=== PATIENT | female | born 1955 | race African-American/Black ===

== ENCOUNTER 2019-09-22 15:17 | Inpatient (IN) | payer OTHER ==
[~2019-09-22] VITALS: Ht 162.6 cm; Wt 56.2 kg
[2019-09-22 15:50] VITALS: BP 145/95
[2019-09-22] MEDS ORDERED: Ipratropium 0.02% Inh Soln 2.5ml UD HHN ONE (16:00)
[2019-09-22] MEDS ORDERED: HYDROcodone/Acetamin 5/325 tab ORAL ONE (16:00)
--- NOTE | 2019-09-22 16:07 | Emergency Room Report ---
History of Present Illness General Chief Complaint: Asthma Source: Patient Present Illness HPI Patient presents with complaints of asthma exacerbation reports that she is short of breath has been using her inhaler however not improving also having increased cough some runny nose Denies any chest pain however patient does complain of left arm pain as well involving the upper shoulder upper arm and left forearm Ongoing for the past several days reports that she saw her primary physician yesterday was given a shot for this in the left arm however the discomfort has continued Denies any neck pain denies any vomiting or diarrhea Denies any pleurisy denies any recent fevers Allergies: Coded Allergies: No Known Allergies (Unverified , 09/22/19) Patient History Past Medical History: see triage record Last Menstrual Period: N/A Reviewed Nursing Documentation: PMH: Agreed; PSxH: Agreed Nursing Documentation-PMH Hx Hypertension: Yes Hx Asthma: Yes Review of Systems All Other Systems: negative except mentioned in HPI Physical Exam Vital Signs Date Time Temp Pulse Resp B/P (MAP) Pulse Ox O2 Delivery O2 Flow Rate FiO2 09/22/19 15:41 98.2 101 22 145/95 (112) 90 Room Air Sp02 EP Interpretation: reviewed, normal General Appearance: well appearing, no apparent distress Head: normocephalic, atraumatic Eyes: bilateral eye PERRL, bilateral eye EOMI ENT: hearing grossly normal, normal pharynx, TMs + canals normal, uvula midline Neck: full range of motion, supple, no meningismus, no bony tend Respiratory: no respiratory distress, no retraction, no accessory muscle use, wheezing - Bilaterally Cardiovascular #1: normal peripheral pulses, regular rate, rhythm, no edema, no gallop, no JVD, no murmur Gastrointestinal: normal bowel sounds, non tender, soft, no mass, no organomegaly, non-distended, no guarding, no hernia, no pulsatile mass, no rebound Genitourinary: no CVA tenderness Musculoskeletal: other - Subjectively complains of left arm pain however moves in all flexion extension able to supinate and pronate without focal deficit 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 Neurologic: motor strength/tone normal, bag mender III-XII nml as tested, oriented x3 , sensory intact, responsive Psychiatric: mood/affect normal Skin: no rash Lymphatic: normal inspection, no adenopathy Procedures Critical Care Time Critical Care Time 50 minutes for multiple re-evaluations, critical findings concerning for respiratory failure and possible not including any procedural time Medical Decision Making Diagnostic Impression: Primary Impression: Pulmonary embolism ER Course Patient is a fairly complex patient with multiple differential to consideration including but not limited to cardiac cardiopulmonary and vascular emergencies Patient did some what better with breathing treatment Troponin level was elevated given the patient's shortness of breath and left arm discomfort this raises further vascular Concerns as well and therefore CT angios was obtained patient does have bilateral small pulmonary emboli Does not appear to put any strain on the cardiac area patient is initiated on heparin bolus and drip And will require ICU admission Labs Test 09/22/19 16:11 09/22/19 17:09 White Blood Count 7.0 K/UL (4.8-10.8) Red Blood Count 3.91 M/UL (4.20-5.40) Hemoglobin 12.7 G/DL (12.0-16.0) Hematocrit 40.8 % (37.0-47.0) Mean Corpuscular Volume 105 FL (80-99) Mean Corpuscular Hemoglobin 32.5 PG (27.0-31.0) Mean Corpuscular Hemoglobin Concent 31.1 G/DL (32.0-36.0) Red Cell Distribution Width 12.5 % (11.6-14.8) Platelet Count 195 K/UL (150-450) Mean Platelet Volume 9.6 FL (6.5-10.1) Neutrophils (%) (Auto) 53.1 % (45.0-75.0) Lymphocytes (%) (Auto) 33.5 % (20.0-45.0) Monocytes (%) (Auto) 6.1 % (1.0-10.0) Eosinophils (%) (Auto) 4.9 % (0.0-3.0) Basophils (%) (Auto) 2.4 % (0.0-2.0) Sodium Level 139 MMOL/L (136-145) Potassium Level 4.0 MMOL/L (3.5-5.1) Chloride Level 105 MMOL/L (98-107) Carbon Dioxide Level 24 MMOL/L (21-32) Anion Gap 10 mmol/L (5-15) Blood Urea Nitrogen 18 mg/dL (7-18) Creatinine 1.2 MG/DL (0.55-1.30) Estimat Glomerular Filtration Rate 45.3 mL/min (>60) Glucose Level 84 MG/DL (74-106) Calcium Level 8.8 MG/DL (8.5-10.1) Total Bilirubin 0.4 MG/DL (0.2-1.0) Aspartate Amino Transf (AST/SGOT) 26 U/L (15-37) Alanine Aminotransferase (ALT/SGPT) 22 U/L (12-78) Alkaline Phosphatase 59 U/L (46-116) Total Creatine Kinase 314 U/L (26-308) Troponin I 0.271 ng/mL (0.000-0.056) Pro-B-Type Natriuretic Peptide 273 pg/mL (0-125) Total Protein 7.8 G/DL (6.4-8.2) Albumin 3.9 G/DL (3.4-5.0) Globulin 3.9 g/dL Albumin/Globulin Ratio 1.0 (1.0-2.7) Lipase 172 U/L (73-393) Urine Opiates Screen Positive (NEGATIVE) Urine Barbiturates Screen Negative (NEGATIVE) Phencyclidine (PCP) Screen Negative (NEGATIVE) Urine Amphetamines Screen Negative (NEGATIVE) Urine Benzodiazepines Screen Negative (NEGATIVE) Urine Cocaine Screen Positive (NEGATIVE) Urine Marijuana (THC) Screen Negative (NEGATIVE) EKG Diagnostic Results Rate: normal Rhythm: NSR ST Segments: other - Nonspecific ST and T wave changes Rhythm Strip Diag. Results EP Interpretation: yes Rate: 88 Rhythm: NSR, no PVC's, no ectopy Chest X-Ray Diagnostic Results Chest X-Ray Diagnostic Results : Chest X-Ray Ordered: Yes # of Views/Limited/Complete: 1 View Indication: Chest Pain EP Interpretation: Yes Interpretation: no consolidation, no effusion, other - Left lower lobe opacities Impression: Other - Left lower lobe nodular opacities Electronically Signed by: Cash Gee DO CT/MRI/US Diagnostic Results CT/MRI/US Diagnostic Results : Impression CTA chestIMPRESSION: Study is positive for small bilateral pulmonary emboli. Last Vital Signs Date Time Temp Pulse Resp B/P (MAP) Pulse Ox O2 Delivery O2 Flow Rate FiO2 09/22/19 15:41 98.2 101 22 145/95 (112) 90 Room Air Status: improved Disposition: ADMITTED INPATIENT Condition: Critical Cash Gee DO Sep 22, 2019 16:07
[2019-09-22] MEDS: Albuterol ud Inhalation HHN SCH ×3 (16:23→16:27)
[2019-09-22 16:42] LABS: BASOPHILS % (AUTO) 2.4 % (0.0-2.0); EOSINOPHILS % (AUTO) 4.9 % (0.0-3.0); HEMATOCRIT 40.8 % (37.0-47.0); HEMOGLOBIN 12.7 G/DL (12.0-16.0); LYMPHOCYTES % (AUTO) 33.5 % (20.0-45.0); MEAN CORPUSCULAR VOLUME 105 FL (80-99); MONOCYTES % (AUTO) 6.1 % (1.0-10.0); NEUTROPHILS % (AUTO) 53.1 % (45.0-75.0); PLATELET COUNT 195 K/UL (150-450); RED BLOOD COUNT 3.91 M/UL (4.20-5.40); RED CELL DISTRIBUTION WIDTH 12.5 % (11.6-14.8)
[2019-09-22 17:01] LABS: ANION GAP 10 mmol/L (5-15); BLOOD UREA NITROGEN 18 mg/dL (7-18); CALCIUM 8.8 MG/DL (8.5-10.1); CARBON DIOXIDE 24 MMOL/L (21-32); CHLORIDE 105 MMOL/L (98-107); CREATININE 1.2 MG/DL (0.55-1.30); SODIUM 139 MMOL/L (136-145)
[2019-09-22 17:18] LABS: ALANINE AMINOTRANSFERASE 22 U/L (12-78); ALBUMIN 3.9 G/DL (3.4-5.0); ALKALINE PHOSPHATASE 59 U/L (46-116); ASPARTATE AMINO TRANSFERASE 26 U/L (15-37); BILIRUBIN,TOTAL 0.4 MG/DL (0.2-1.0); CREATINE KINASE 314 U/L (26-308)
--- NOTE | 2019-09-22 17:20 | Diagnostic Imaging Report ---
EXAM: XR Chest, 1 View CLINICAL HISTORY: SOB TECHNIQUE: Frontal view of the chest. COMPARISON: No relevant prior studies available. FINDINGS: Lungs: Mild reticulonodular opacities in the lower lung kraus. No confluent consolidation. Pleural space: Unremarkable. No pneumothorax. Heart: Unremarkable. No cardiomegaly. Mediastinum: Unremarkable. Bones/joints: No acute fracture. Vasculature: Ectatic and tortuous aorta. IMPRESSION: Mild reticulonodular opacities in the lower lung kraus. No confluent consolidation.
[2019-09-22] MEDS ORDERED: Omnipaque 350 100ml vial INJ PRN (17:30)
[2019-09-22] MEDS ORDERED: Morphine Sulfate 4mg/ml Inj (IV USE ONLY) IVP ONE (17:45)
[2019-09-22 18:11] VITALS: BP 144/88
--- NOTE | 2019-09-22 18:12 | NUR ---
ED Nurse Note: Patient found to have low pulse oximetry reading, 82% on room air and provided oxygen via N/C 4L. Improved pulse oximetry reading to 94%. Reports no CP or SOB at this time. EM Garrison made aware.
--- NOTE | 2019-09-22 18:56 | NUR ---
ED Nurse Note: Patient is on oxygen via N/C 2L, maintaining pulse oximetry reading >94%.
[2019-09-22 19:15] VITALS: BP 138/100
--- NOTE | 2019-09-22 19:15 | NUR ---
ED Nurse Note: Report received from EM Garrison. Pt is resting in bed at this time, no acute distress noted. 22g IV on L AC is patent and intact. Will continue to monitor. VSS.
--- NOTE | 2019-09-22 19:16 | Diagnostic Imaging Report ---
EXAM: CT Chest With Intravenous Contrast CLINICAL HISTORY: SOB TECHNIQUE: Axial computed tomography images of the chest with intravenous contrast. CTDI is 39.2 mGy and DLP is 367.4 mGy-cm. One or more of the following dose reduction techniques were used: automated exposure control, adjustment of the mA and/or kV according to patient size, use of iterative reconstruction technique. MIP reconstructed images were created and reviewed. COMPARISON: No relevant prior studies available. FINDINGS: Lungs: Pulmonary emphysema Mild consolidative atelectasis in the right lung base. Pleural space: Unremarkable. No pneumothorax. No effusion. Heart: Trace anterior pericardial fluid Bones/joints: Scoliosis. Soft tissues: Unremarkable. Vasculature: Study is positive for small bilateral pulmonary emboli. No thoracic aortic aneurysm. Lymph nodes: No enlarged lymph nodes. Kidneys and ureters: Left renal cyst. IMPRESSION: Study is positive for small bilateral pulmonary emboli. <MYCVCSECTION> Communications: 09/22/19 19:20 Call Doctor Regarding Other, called Dr. Gee on 09/22 19:20 (-08:00)
--- NOTE | 2019-09-22 19:26 | NUR ---
Nursing securities supervisor notified to change tele to ICU
[2019-09-22] MEDS ORDERED: Heparin 5000 units/ml inj IV ONE ×2 (19:30→23:00)
[2019-09-22] MEDS ORDERED: Heparin 25,000u/D5W 500ml 500 ML IV SCH ×3 (19:30→23:15)
--- NOTE | 2019-09-22 20:16 | NUR ---
ED Nurse Note: IV heparin drip started at this time as ordered. Pt tolerating well, no acute distress noted.
--- NOTE | 2019-09-22 20:30 | NUR ---
ED Nurse Note: Pt is resting in bed at this time, no acute distress noted. VSS. Will continue to monitor, awaiting on bed.
--- NOTE | 2019-09-22 21:00 | NUR ---
ED Nurse Note: Report given to EM Elizabeth.
--- NOTE | 2019-09-22 21:12 | NUR ---
ED Nurse Note: Pt own medication, naproxen 500mg and (two) albuteral inhalers taken from pt and locked in pt own med box in medication room in ED.
--- NOTE | 2019-09-22 21:20 | NUR ---
ED Nurse Note: Pt sent to unit with heparin infusing running as ordered. IV Heparin infusion orders endorsed to receiving nurse on the unit.
--- NOTE | 2019-09-22 21:20 | NUR ---
ED Nurse Note: Pt is stable to transfer to unit at this time per ERMD. Pt VSS, no acute distress noted. Pt has heparin infusion running as ordered. Pt IV sites patent and intact. Pt taken to unit via gurney by susanna and RN, connected to diagnostic cardiac sonographer. Pt belongings sent with pt. Pt is aaox4.
--- NOTE | 2019-09-22 21:30 | NUR ---
NURSE NOTES: Admitted 64 year old female patient. Received endorsement from EM Gillespie. Awake and alert and oriented. Sinus rhythm on the monitor. On 3liters oxygen per nasal cannula. Patient stated her breathing feels better. With right AC g 20 and left AC g22. Receiving Heparin 12 units/kg/hr. Skin is intact. Head of bed elevated, locked and in low position. Call light within reach. Bed alarm on. Patient oriented to her room, staff, call light.
[2019-09-22 21:32] VITALS: BP 146/97
--- NOTE | 2019-09-22 21:40 | Cardiology Progress Note ---
Assessment/Plan Assessment/Plan The patient is seen and examined, full consult note will be dictated. Objective Last 24 Hour Vital Signs Date Time Temp Pulse Resp B/P (MAP) Pulse Ox O2 Delivery O2 Flow Rate FiO2 09/22/19 19:15 96.7 104 17 138/100 98 Nasal Cannula 2.0 21 09/22/19 18:55 96 18 95 Nasal Cannula 2.0 09/22/19 18:11 96.7 09/22/19 18:11 96.7 103 18 144/88 94 Nasal Cannula 4.0 09/22/19 16:25 99 18 Room Air 21 09/22/19 16:23 100 20 100 Room Air 21 99 18 99 09/22/19 15:50 98.2 78 22 145/95 90 Room Air 09/22/19 15:41 98.2 101 22 145/95 (112) 90 Room Air Laboratory Tests Test 09/22/19 16:11 09/22/19 17:09 White Blood Count 7.0 K/UL (4.8-10.8) Red Blood Count 3.91 M/UL (4.20-5.40) L Hemoglobin 12.7 G/DL (12.0-16.0) Hematocrit 40.8 % (37.0-47.0) Mean Corpuscular Volume 105 FL (80-99) H Mean Corpuscular Hemoglobin 32.5 PG (27.0-31.0) H Mean Corpuscular Hemoglobin Concent 31.1 G/DL (32.0-36.0) L Red Cell Distribution Width 12.5 % (11.6-14.8) Platelet Count 195 K/UL (150-450) Mean Platelet Volume 9.6 FL (6.5-10.1) Neutrophils (%) (Auto) 53.1 % (45.0-75.0) Lymphocytes (%) (Auto) 33.5 % (20.0-45.0) Monocytes (%) (Auto) 6.1 % (1.0-10.0) Eosinophils (%) (Auto) 4.9 % (0.0-3.0) H Basophils (%) (Auto) 2.4 % (0.0-2.0) H Sodium Level 139 MMOL/L (136-145) Potassium Level 4.0 MMOL/L (3.5-5.1) Chloride Level 105 MMOL/L (98-107) Carbon Dioxide Level 24 MMOL/L (21-32) Anion Gap 10 mmol/L (5-15) Blood Urea Nitrogen 18 mg/dL (7-18) Creatinine 1.2 MG/DL (0.55-1.30) Estimat Glomerular Filtration Rate 45.3 mL/min (>60) Glucose Level 84 MG/DL (74-106) Calcium Level 8.8 MG/DL (8.5-10.1) Total Bilirubin 0.4 MG/DL (0.2-1.0) Aspartate Amino Transf (AST/SGOT) 26 U/L (15-37) Alanine Aminotransferase (ALT/SGPT) 22 U/L (12-78) Alkaline Phosphatase 59 U/L (46-116) Total Creatine Kinase 314 U/L (26-308) H Troponin I 0.271 ng/mL (0.000-0.056) Pro-B-Type Natriuretic Peptide 273 pg/mL (0-125) H Total Protein 7.8 G/DL (6.4-8.2) Albumin 3.9 G/DL (3.4-5.0) Globulin 3.9 g/dL Albumin/Globulin Ratio 1.0 (1.0-2.7) Lipase 172 U/L (73-393) Urine Opiates Screen Positive (NEGATIVE) H Urine Barbiturates Screen Negative (NEGATIVE) Phencyclidine (PCP) Screen Negative (NEGATIVE) Urine Amphetamines Screen Negative (NEGATIVE) Urine Benzodiazepines Screen Negative (NEGATIVE) Urine Cocaine Screen Positive (NEGATIVE) H Urine Marijuana (THC) Screen Negative (NEGATIVE) Dayron Tate MD Sep 22, 2019 21:40
[2019-09-22 22:00] VITALS: BP 150/84
--- NOTE | 2019-09-22 22:00 | NUR ---
NURSE NOTES: Patient seen and examined by Dr. Tate. Called Dr. Bach for admission orders.
[2019-09-22] MEDS: dilTIAZem HCl 30mg tab ORAL SCH (22:18)
--- NOTE | 2019-09-22 22:20 | NUR ---
NURSE NOTES: Received patient on Heparin 12u/kg/hr per [facility] protocol. Charge nurse spoke with Pharmacist Jaskaran, as per her to confirm with MD if patient to continue heparin drip per [facility] protocol or PE protocol. Called Dr. Tate on his emergency line, left a message.
--- NOTE | 2019-09-22 22:30 | NUR ---
NURSE NOTES: Called Dr. Bach for the 2nd time for admission orders.
--- NOTE | 2019-09-22 22:50 | NUR ---
NURSE NOTES: Received a return call from Dr. Tate. Informed him that received patient on heparin drip per [facility] protocol. As per him to change it to Heparin drip per PE protocol
--- NOTE | 2019-09-22 22:55 | NUR ---
NURSE NOTES: Received return call from Dr. Bach, orders read back and verified by
[2019-09-22 23:00] VITALS: BP 128/77
--- NOTE | 2019-09-22 23:00 | NUR ---
NURSE NOTES: Called Dr. Corona. Received new orders and read back. agreed with the Heparin drip PE protocol.
[2019-09-22] MEDS ORDERED: Albuterol/Ipratropium 3ml neb HHN PRN (23:15)
--- NOTE | 2019-09-22 23:55 | Pulmonolgy Critical Care Note ---
Critical Care - Asmt/Plan Assessment/Plan: Pulmonary CCM Consultation HPI Patient is a 64 year old woman with previous history of Asthma, admitted c/o short of breath,increased cough some runny nose Has chest and left arm pain as well involving the upper shoulder upper arm and left forearm, no hemoptysis Denies any neck pain denies any vomiting or diarrhea Denies any pleurisy denies any recent fevers Allergies: No Known Allergies Past Medical History: Asthma, Hypertension All Other Systems: negative except mentioned in HPI Physical Exam Vital Signs Noted Date Time Temp Pulse Resp B/P (MAP) Pulse Ox O2 Delivery O2 Flow Rate FiO2 09/22/19 15:41 98.2 101 22 145/95 (112) 90 Room Air General Appearance: well appearing, no apparent distress Head: normocephalic, atraumatic Eyes: bilateral eye PERRL, bilateral eye EOMI ENT: hearing grossly normal, normal pharynx, TMs + canals normal, uvula midline Neck: full range of motion, supple, no meningismus, no bony tend Respiratory: no respiratory distress, no retraction, no accessory muscle use, wheezing - Bilaterally Cardiovascular: normal peripheral pulses, regular rate, rhythm, HS1, HS2 normal ,no edema, no gallop, no JVD, no murmur Gastrointestinal: normal bowel sounds, non tender, soft, no mass, no organomegaly, non-distended, no guarding, no hernia, no pulsatile mass, no rebound Genitourinary: no CVA tenderness Musculoskeletal: other - Subjectively complains of left arm pain however moves in all flexion extension able to supinate and pronate without focal deficit appropriate optical manager Neurologic: motor strength/tone normal, service car driver III-XII nml as tested, oriented x3 , sensory intact, responsive Skin: no rash Lymphatic: normal inspection, no adenopathy Impression: Pulmonary embolism Shortness of breath Asthma Hypertension Plan Heparin gtt Breathing treatments O2 PRN Solumedrol COMPUTER 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0-45.0) Monocytes (%) (Auto) 6.1 % (1.0-10.0) Eosinophils (%) (Auto) 4.9 % (0.0-3.0) Basophils (%) (Auto) 2.4 % (0.0-2.0) Sodium Level 139 MMOL/L (136-145) Potassium Level 4.0 MMOL/L (3.5-5.1) Chloride Level 105 MMOL/L (98-107) Carbon Dioxide Level 24 MMOL/L (21-32) Anion Gap 10 mmol/L (5-15) Blood Urea Nitrogen 18 mg/dL (7-18) Creatinine 1.2 MG/DL (0.55-1.30) Estimat Glomerular Filtration Rate 45.3 mL/min (>60) Glucose Level 84 MG/DL (74-106) Calcium Level 8.8 MG/DL (8.5-10.1) Total Bilirubin 0.4 MG/DL (0.2-1.0) Aspartate Amino Transf (AST/SGOT) 26 U/L (15-37) Alanine Aminotransferase (ALT/SGPT) 22 U/L (12-78) Alkaline Phosphatase 59 U/L (46-116) Total Creatine Kinase 314 U/L (26-308) Troponin I 0.271 ng/mL (0.000-0.056) Pro-B-Type Natriuretic Peptide 273 pg/mL (0-125) Total Protein 7.8 G/DL (6.4-8.2) Albumin 3.9 G/DL (3.4-5.0) Globulin 3.9 g/dL Albumin/Globulin Ratio 1.0 (1.0-2.7) Lipase 172 U/L (73-393) Urine Opiates Screen Positive (NEGATIVE) Urine Barbiturates Screen Negative (NEGATIVE) Phencyclidine (PCP) Screen Negative (NEGATIVE) Urine Amphetamines Screen Negative (NEGATIVE) Urine Benzodiazepines Screen Negative (NEGATIVE) Urine Cocaine Screen Positive (NEGATIVE) Urine Marijuana (THC) Screen Negative (NEGATIVE) EKG Diagnostic Results Rate: normal Rhythm: NSR ST Segments: other - Nonspecific ST and T wave changes Rhythm Strip Diag. Results EP Interpretation: yes Rate: 88 Rhythm: NSR, no PVC's, no ectopy Chest X-Ray: no consolidation, no effusion, other - Left lower lobe opacities CTA chest: Study is positive for small bilateral pulmonary emboli Critical Care - Objective Last 24 Hour Vital Signs Date Time Temp Pulse Resp B/P (MAP) Pulse Ox O2 Delivery O2 Flow Rate FiO2 09/22/19 23:00 95 19 128/77 (94) 95 09/22/19 22:23 Nasal Cannula 3.0 09/22/19 22:18 100 150/84 09/22/19 22:00 99 17 150/84 (106) 96 09/22/19 21:50 90 09/22/19 21:32 98.4 95 18 146/97 (113) 95 09/22/19 21:20 96.7 100 16 143/94 98 Nasal Cannula 2.0 21 09/22/19 19:15 96.7 104 17 138/100 98 Nasal Cannula 2.0 21 09/22/19 18:55 96 18 95 Nasal Cannula 2.0 09/22/19 18:11 96.7 09/22/19 18:11 96.7 103 18 144/88 94 Nasal Cannula 4.0 09/22/19 16:25 99 18 Room Air 21 09/22/19 16:23 100 20 100 Room Air 21 99 18 99 09/22/19 15:50 98.2 78 22 145/95 90 Room Air 09/22/19 15:41 98.2 101 22 145/95 (112) 90 Room Air Micro: Microbiology Date/Time Source Procedure Growth Status 09/22/19 21:00 Rectum Received Critical Care - Subjective ROS Limited/Unobtainable: No FI02: 21 Sputum Amount: Harry Clark MD Sep 22, 2019 23:55
[2019-09-22] MEDS: Hydromorphone 0.5mg/0.5ml inj IVP PRN (23:58)
[2019-09-23] VITALS (14 sets, daily range): BP systolic 99–128; BP diastolic 65–92
--- NOTE | 2019-09-23 00:48 | NUR ---
NURSE NOTES: Patient seen and examined by Dr. Corona. Received new orders and carried out.
[2019-09-23] MEDS: guaiFENesin 100mg/5ml Liq ud ORAL PRN ×3 (01:10→20:44)
--- NOTE | 2019-09-23 02:00 | NUR ---
NURSE NOTES: Patient awake, continues on heparin drip at 18units/kg/hr
[2019-09-23] MEDS: Albuterol/Ipratropium 3ml neb HHN SCH ×6 (03:45→22:46)
--- NOTE | 2019-09-23 04:00 | NUR ---
NURSE NOTES: Patient asleep. No signs of pain or discomfort. No signs of bleeding.
[2019-09-23] MEDS: Hydromorphone 0.5mg/0.5ml inj IVP PRN ×2 (04:30→08:20)
[2019-09-23] MEDS: dilTIAZem HCl 30mg tab ORAL SCH ×3 (05:49→22:32)
[2019-09-23] MEDS ORDERED: Solu-MEDROL 125mg Inj IVP SCH (06:00)
--- NOTE | 2019-09-23 06:00 | NUR ---
NURSE NOTES: Patient verbalized urge to pee. Offered bedpan, as per her the urine "won't come out". Assisted to the toilet, patient passed urine. Assisted back to bed. As per her she doesn't have shortness of breath and asked if she can take off her nasal cannula. Trial weaning off from oxygen done, patient desats to 75% on room air however as per patient she isn't short of breath. Explained to her that her saturation is at the 70s and ideally should be 91% to 96% as per MD's order. Patient verbalized understanding and kept the oxygen on.
[2019-09-23 06:18] LABS: BASOPHILS % (AUTO) 1.8 % (0.0-2.0); EOSINOPHILS % (AUTO) 9.7 % (0.0-3.0); HEMATOCRIT 37.4 % (37.0-47.0); HEMOGLOBIN 12.8 G/DL (12.0-16.0); LYMPHOCYTES % (AUTO) 43.7 % (20.0-45.0); MEAN CORPUSCULAR VOLUME 99 FL (80-99); NEUTROPHILS % (AUTO) 37.8 % (45.0-75.0); PLATELET COUNT 190 K/UL (150-450); RED BLOOD COUNT 3.79 M/UL (4.20-5.40); RED CELL DISTRIBUTION WIDTH 12.1 % (11.6-14.8); WHITE BLOOD COUNT 6.7 K/UL (4.8-10.8)
[2019-09-23 06:26] LABS: ANION GAP 9 mmol/L (5-15); BLOOD UREA NITROGEN 17 mg/dL (7-18); CALCIUM 8.2 MG/DL (8.5-10.1); CARBON DIOXIDE 25 MMOL/L (21-32); CHLORIDE 105 MMOL/L (98-107); CREATININE 1.1 MG/DL (0.55-1.30); POTASSIUM 3.9 MMOL/L (3.5-5.1); SODIUM 139 MMOL/L (136-145)
--- NOTE | 2019-09-23 06:30 | NUR ---
NURSE NOTES: Patient seen and examined by Dr. Bates. No order received at this time.
[2019-09-23] MEDS ORDERED: Heparin 25,000u/D5W 500ml 500 ML IV SCH (06:45)
[2019-09-23] MEDS ORDERED: Heparin 5000 units/ml inj IV SCH (06:45)
--- NOTE | 2019-09-23 06:52 | Consultation ---
History of Present Illness General Chief Complaint: Asthma Present Illness Allergies: Coded Allergies: No Known Allergies (Unverified , 09/22/19) Patient History Healthcare decision maker Resuscitation status Full Code Advanced Directive on File Physical Exam Last 24 Hour Vital Signs Date Time Temp Pulse Resp B/P (MAP) Pulse Ox O2 Delivery O2 Flow Rate FiO2 09/23/19 06:00 81 19 128/80 (96) 96 09/23/19 05:50 98.4 09/23/19 05:49 87 112/78 09/23/19 05:00 81 17 112/78 (89) 92 09/23/19 04:00 79 09/23/19 04:00 Nasal Cannula 3.0 09/23/19 04:00 98.4 90 24 124/72 (89) 99 09/23/19 03:47 87 13 97 Nasal Cannula 3.0 32 88 16 96 09/23/19 03:00 74 10 99/65 (76) 95 09/23/19 02:00 82 14 99/71 (80) 95 09/23/19 01:00 89 25 109/72 (84) 92 09/23/19 00:00 98.6 100 20 122/84 (97) 95 09/23/19 00:00 102 09/23/19 00:00 Nasal Cannula 3.0 09/22/19 23:00 95 19 128/77 (94) 95 09/22/19 22:23 Nasal Cannula 3.0 09/22/19 22:18 100 150/84 09/22/19 22:00 99 17 150/84 (106) 96 09/22/19 21:50 90 09/22/19 21:32 98.4 95 18 146/97 (113) 95 09/22/19 21:20 96.7 100 16 143/94 98 Nasal Cannula 2.0 21 09/22/19 19:15 96.7 104 17 138/100 98 Nasal Cannula 2.0 21 09/22/19 18:55 96 18 95 Nasal Cannula 2.0 09/22/19 18:11 96.7 09/22/19 18:11 96.7 103 18 144/88 94 Nasal Cannula 4.0 09/22/19 16:25 99 18 Room Air 21 09/22/19 16:23 100 20 100 Room Air 21 99 18 99 2/1/20 15:50 98.2 78 22 145/95 90 Room Air 09/22/19 15:41 98.2 101 22 145/95 (112) 90 Room Air Intake and Output 09/22/19 09/23/19 19:00 07:00 Intake Total 105.816 ml Balance 105.816 ml Intake IV Total 105.816 ml # Voids 2 Laboratory Tests Test 09/22/19 16:11 09/22/19 16:30 09/22/19 17:09 09/23/19 06:05 White Blood Count 7.0 K/UL (4.8-10.8) 6.7 K/UL (4.8-10.8) Red Blood Count 3.91 M/UL (4.20-5.40) L 3.79 M/UL (4.20-5.40) L Hemoglobin 12.7 G/DL (12.0-16.0) 12.8 G/DL (12.0-16.0) Hematocrit 40.8 % (37.0-47.0) 37.4 % (37.0-47.0) Mean Corpuscular Volume 105 FL (80-99) H 99 FL (80-99) Mean Corpuscular Hemoglobin 32.5 PG (27.0-31.0) H 33.8 PG (27.0-31.0) H Mean Corpuscular Hemoglobin Concent 31.1 G/DL (32.0-36.0) L 34.2 G/DL (32.0-36.0) Red Cell Distribution Width 12.5 % (11.6-14.8) 12.1 % (11.6-14.8) Platelet Count 195 K/UL (150-450) 190 K/UL (150-450) Mean Platelet Volume 9.6 FL (6.5-10.1) 8.6 FL (6.5-10.1) Neutrophils (%) (Auto) 53.1 % (45.0-75.0) 37.8 % (45.0-75.0) L Lymphocytes (%) (Auto) 33.5 % (20.0-45.0) 43.7 % (20.0-45.0) Monocytes (%) (Auto) 6.1 % (1.0-10.0) 7.0 % (1.0-10.0) Eosinophils (%) (Auto) 4.9 % (0.0-3.0) H 9.7 % (0.0-3.0) H Basophils (%) (Auto) 2.4 % (0.0-2.0) H 1.8 % (0.0-2.0) Sodium Level 139 MMOL/L (136-145) 139 MMOL/L (136-145) Potassium Level 4.0 MMOL/L (3.5-5.1) 3.9 MMOL/L (3.5-5.1) Chloride Level 105 MMOL/L (98-107) 105 MMOL/L (98-107) Carbon Dioxide Level 24 MMOL/L (21-32) 25 MMOL/L (21-32) Anion Gap 10 mmol/L (5-15) 9 mmol/L (5-15) Blood Urea Nitrogen 18 mg/dL (7-18) 17 mg/dL (7-18) Creatinine 1.2 MG/DL (0.55-1.30) 1.1 MG/DL (0.55-1.30) Estimat Glomerular Filtration Rate 45.3 mL/min (>60) > 60 mL/min (>60) Glucose Level 84 MG/DL (74-106) 116 MG/DL (74-106) H Calcium Level 8.8 MG/DL (8.5-10.1) 8.2 MG/DL (8.5-10.1) L Total Bilirubin 0.4 MG/DL (0.2-1.0) Aspartate Amino Transf (AST/SGOT) 26 U/L (15-37) Alanine Aminotransferase (ALT/SGPT) 22 U/L (12-78) Alkaline Phosphatase 59 U/L (46-116) Total Creatine Kinase 314 U/L (26-308) H Troponin I 0.271 ng/mL (0.000-0.056) Pending Pro-B-Type Natriuretic Peptide 273 pg/mL (0-125) H Total Protein 7.8 G/DL (6.4-8.2) Albumin 3.9 G/DL (3.4-5.0) Globulin 3.9 g/dL Albumin/Globulin Ratio 1.0 (1.0-2.7) Lipase 172 U/L (73-393) Activated Partial Thromboplast Time 25 SEC (23-33) 42 SEC (23-33) H Urine Opiates Screen Positive (NEGATIVE) H Urine Barbiturates Screen Negative (NEGATIVE) Phencyclidine (PCP) Screen Negative (NEGATIVE) Urine Amphetamines Screen Negative (NEGATIVE) Urine Benzodiazepines Screen Negative (NEGATIVE) Urine Cocaine Screen Positive (NEGATIVE) H Urine Marijuana (THC) Screen Negative (NEGATIVE) Prothrombin Time 10.4 SEC (9.30-11.50) Prothromb Time International Ratio 1.0 (0.9-1.1) Microbiology Date/Time Source Procedure Growth Status 09/22/19 21:00 Rectum Received Height (Feet): 5 Height (Inches): 4.00 Weight (Pounds): 107 Medications Current Medications Medications (Trade) Dose Ordered Sig/Edil Route PRN Reason Start Time Stop Time Status Last Admin Dose Admin Acetaminophen (Tylenol) 650 mg Q6H PRN ORAL Mild Pain/Temp > 100.5 09/22/19 23:15 10/22/19 23:14 Acetaminophen/ Hydrocodone Bitart ([place] 5/325) 1 tab Q6H PRN ORAL For Pain 09/22/19 23:15 09/29/19 23:14 Albuterol/ Ipratropium (Albuterol/ Ipratropium) 3 ml Q4HRT HHN 09/23/19 03:00 09/27/19 23:14 09/23/19 03:45 Dextrose (Dextrose 50%) 25 ml Q30M PRN IV Hypoglycemia 09/22/19 23:15 10/22/19 23:14 Dextrose (Dextrose 50%) 50 ml Q30M PRN IV Hypoglycemia 09/22/19 23:15 10/22/19 23:14 Diltiazem HCl (Cardizem) 30 mg EVERY 8 HOURS ORAL 09/22/19 22:00 10/22/19 21:59 09/23/19 05:49 Doxycycline Monohydrate (Doxycycline Monohydrate) 100 mg EVERY 12 HOURS ORAL 09/23/19 09:00 09/30/19 08:59 Guaifenesin (Robitussin) 100 mg EVERY 6 HOURS PRN ORAL For Cough 09/22/19 23:15 10/22/19 23:14 09/23/19 01:10 Heparin Sodium/ Dextrose 500 ml @ 13.717 mls/ hr ADJUST PER PROTOCOL IV 09/23/19 06:45 10/23/19 06:44 Hydromorphone HCl (Dilaudid) 0.5 mg Q3HR PRN IVP Pain Scale (6-10) 09/22/19 23:15 09/29/19 23:14 09/23/19 04:30 Iohexol (Omnipaque) 100 mg NOW PRN INJ Radiology Procedure 09/22/19 17:30 09/24/19 17:26 Methylprednisolone Sodium Succinate (Solu-MEDROL) 40 mg EVERY 8 HOURS IVP 09/23/19 06:00 10/23/19 05:59 09/23/19 05:48 Pantoprazole (Protonix) 40 mg DAILY ORAL 09/23/19 09:00 10/23/19 08:59 Assessment/Plan Assessment/Plan: Hematology Consultation REQ MD: Cash Hodge DOS: 09/23/2019 RFC: Bilateral emboli 64 year old woman with previous history of Asthma, admitted c/o short of breath, increased cough some runny nose Has chest and left arm pain as well involving the upper shoulder upper arm and left forearm, no hemoptysis Denies any neck pain denies any vomiting or diarrhea Denies any pleurisy denies any recent fevers Noted on imaging to have b/l emboli, venous duplex pending Now is in the icu, darby Rn, Clara Allergies: No Known Allergies Past Medical History: Asthma, Hypertension Surgical hx: right breast cyst removal Meds: amlodipine Social hx: single, has 2 kids, 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, positive for tobacco use, as well as occasional drinking and cocaine use++ All Other Systems: negative except mentioned in HPI Physical Exam General: well appearing, nad HEENT: full range of motion, supple, no meningismus Resp: no respiratory distress, no retraction, no accessory muscle use CV: normal peripheral pulses, regular rate, rhythm GI: normal bowel sounds, non tender, soft, no mass : no CVA tenderness MSK: subjectively complains of left arm pain Neurologic: motor strength/tone normal, whip sawyer III-XII nml as tested, responsive Labs: reviewed Imaging: noted Assessment and Recs: # Bilateral Pulmonary embolism - noted on imaging --> consider to continue on heparin gtt --> hypercoag w/u as needed prn basis --> may be related to recent drug use as well --> recommend 3-6 mo of anticoagulation # Coagulopathy --> may be due to heparin gtt # Shortness of breath --> prn breathing treatments # Asthma --> as per pulm # Hypertension --> as per cards # Dvt ppx with hep gtt Dw Rn and appreciate consultation. Jose Bates MD Sep 23, 2019 06:52
[2019-09-23] MEDS: Heparin 25,000u/D5W 500ml 500 ML IV SCH ×2 (06:54→20:48)
--- NOTE | 2019-09-23 06:55 | NUR ---
NURSE NOTES: PTT results in. Received a call from [employer] Pharmacist Gabby. Bolus dose of Heparin 4,000 units, increase drip to 22units/kg/hr. Orders carried out, timed PTT ordered at 1300H today
--- NOTE | 2019-09-23 07:24 | NUR ---
HAND-OFF: Report given to Loi Carrasco.
--- NOTE | 2019-09-23 07:25 | NUR ---
NURSE NOTES: Late entry: PT and report received from EM Elizabeth; PT is A/O x 4; cooperative, able to follow commands; ambulates w/ staff assistance, no weakness noted bilaterally upper extremities; PT is on 3L-NC saturating at 100% no S/S of respiratory distress noted, PT is on regular diet provided breakfast tray to PT; surveillance system monitor shows SR with HR 72; PT has R-AC 20g and L-AC 22g infusing heparin @ 22u/kg/hr remains intact patent no S/S of infiltration noted will continue to monitor PT. Will continue to monitor PT and follow through with plan of care.
[2019-09-23] MEDS: Doxycycline Monohydrate 100mg ORAL SCH ×2 (08:19→20:44)
--- NOTE | 2019-09-23 09:17 | NUR ---
RD ASSESSMENT & RECOMMENDATIONS SEE CARE ACTIVITY FOR COMPLETE ASSESSMENT DAILY ESTIMATED NEEDS: Needs based on Cardiac, pulmonary, underweight 49kg 30-35 kcals/kg 0798-4640 total kcals 1-1.5 g protein/kg 49-74 g total protein 25-30 mL/kg 7364-1828 total fluid mLs NUTRITION DIAGNOSIS: Increased kcal and pro needs r/t underweight status as evidenced by pt w/ low BMI, 90% of IBW, w/ BL LE moderate fat and muscle wasting, generalized mild wasting. CURRENT DIET: regular mech soft finely chopped PO DIET RECOMMENDATIONS: Maintain regular diet/ texture as tolerated ADDITIONAL RECOMMENDATIONS: 1) Maintain calibrated bed scale wts 2) Add Ensure Enlive qdaily (added 350 kcal/19g pro per bottle) 3) Add snacks in b/w meals -> Texture upgrade as able for improved food acceptance 4) Monitor BG on solumedrol
--- NOTE | 2019-09-23 09:54 | Pulmonolgy Critical Care Note ---
Critical Care - Asmt/Plan Assessment/Plan: Pulmonary CCM Consultation HPI Patient is a 64 year old woman with previous history of Asthma, admitted c/o short of breath,increased cough some runny nose Has chest and left arm pain as well involving the upper shoulder upper arm and left forearm, no hemoptysis Denies any neck pain denies any vomiting or diarrhea Denies any pleurisy denies any recent fevers Noted to have Pulmonary Emboli - on Heparin gtt Allergies: No Known Allergies Past Medical History: Asthma, Hypertension Social History: Cocaine use All Other Systems: negative except mentioned in HPI Physical Exam Vital Signs Noted General Appearance: well appearing, no apparent distress Head: normocephalic, atraumatic Eyes: bilateral eye PERRL, bilateral eye EOMI ENT: hearing grossly normal, normal pharynx, TMs + canals normal, uvula midline Neck: full range of motion, supple, no meningismus, no bony tend Respiratory: no respiratory distress, no retraction, no accessory muscle use, wheezing - Bilaterally Cardiovascular: normal peripheral pulses, regular rate, rhythm, HS1, HS2 normal ,no edema, no gallop, no JVD, no murmur Gastrointestinal: normal bowel sounds, non tender, soft, no mass, no organomegaly, non-distended, no guarding, no hernia, no pulsatile mass, no rebound Genitourinary: no CVA tenderness Musculoskeletal: other - Subjectively complains of left arm pain however moves in all flexion extension able to supinate and pronate without focal deficit appropriate crime specialist Neurologic: motor strength/tone normal, outer diameter grinder III-XII nml as tested, oriented x3 , sensory intact, responsive Skin: no rash Lymphatic: normal inspection, no adenopathy Impression: Pulmonary embolism Shortness of breath Asthma Hypertension Cocaine Use Plan Heparin gtt Breathing treatments O2 PRN Solumedrol RN ACCESS Medications Cardiology following Echocardiogram PPX Monitor labs Labs noted Test 09/22/19 16:11 09/22/19 17:09 White Blood Count 7.0 K/UL (4.8-10.8) Red Blood Count 3.91 M/UL (4.20-5.40) Hemoglobin 12.7 G/DL (12.0-16.0) Hematocrit 40.8 % (37.0-47.0) Mean Corpuscular Volume 105 FL (80-99) Mean Corpuscular Hemoglobin 32.5 PG (27.0-31.0) Mean Corpuscular Hemoglobin Concent 31.1 G/DL (32.0-36.0) Red Cell Distribution Width 12.5 % (11.6-14.8) Platelet Count 195 K/UL (150-450) Mean Platelet Volume 9.6 FL (6.5-10.1) Neutrophils (%) (Auto) 53.1 % (45.0-75.0) Lymphocytes (%) (Auto) 33.5 % (20.0-45.0) Monocytes (%) (Auto) 6.1 % (1.0-10.0) Eosinophils (%) (Auto) 4.9 % (0.0-3.0) Basophils (%) (Auto) 2.4 % (0.0-2.0) Sodium Level 139 MMOL/L (136-145) Potassium Level 4.0 MMOL/L (3.5-5.1) Chloride Level 105 MMOL/L (98-107) Carbon Dioxide Level 24 MMOL/L (21-32) Anion Gap 10 mmol/L (5-15) Blood Urea Nitrogen 18 mg/dL (7-18) Creatinine 1.2 MG/DL (0.55-1.30) Estimat Glomerular Filtration Rate 45.3 mL/min (>60) Glucose Level 84 MG/DL (74-106) Calcium Level 8.8 MG/DL (8.5-10.1) Total Bilirubin 0.4 MG/DL (0.2-1.0) Aspartate Amino Transf (AST/SGOT) 26 U/L (15-37) Alanine Aminotransferase (ALT/SGPT) 22 U/L (12-78) Alkaline Phosphatase 59 U/L (46-116) Total Creatine Kinase 314 U/L (26-308) Troponin I 0.271 ng/mL (0.000-0.056) Pro-B-Type Natriuretic Peptide 273 pg/mL (0-125) Total Protein 7.8 G/DL (6.4-8.2) Albumin 3.9 G/DL (3.4-5.0) Globulin 3.9 g/dL Albumin/Globulin Ratio 1.0 (1.0-2.7) Lipase 172 U/L (73-393) Urine Opiates Screen Positive (NEGATIVE) Urine Barbiturates Screen Negative (NEGATIVE) Phencyclidine (PCP) Screen Negative (NEGATIVE) Urine Amphetamines Screen Negative (NEGATIVE) Urine Benzodiazepines Screen Negative (NEGATIVE) Urine Cocaine Screen Positive (NEGATIVE) Urine Marijuana (THC) Screen Negative (NEGATIVE) EKG: Rate: normal Rhythm: NSR ST Segments: other - Nonspecific ST and T wave changes Chest X-Ray: no consolidation, no effusion, other - Left lower lobe opacities CTA chest: Study is positive for small bilateral pulmonary emboli Seen earlier Critical Care - Objective Last 24 Hour Vital Signs Date Time Temp Pulse Resp B/P (MAP) Pulse Ox O2 Delivery O2 Flow Rate FiO2 09/23/19 09:00 70 16 117/87 (97) 97 09/23/19 08:59 98.3 09/23/19 08:00 Nasal Cannula 3.0 09/23/19 08:00 98.3 73 18 128/79 (95) 98 09/23/19 08:00 77 09/23/19 07:00 82 14 111/81 (91) 94 09/23/19 06:00 81 19 128/80 (96) 96 09/23/19 05:49 87 112/78 09/23/19 05:00 81 17 112/78 (89) 92 09/23/19 04:00 79 09/23/19 04:00 Nasal Cannula 3.0 09/23/19 04:00 98.4 90 24 124/72 (89) 99 09/23/19 03:47 87 13 97 Nasal Cannula 3.0 32 88 16 96 09/23/19 03:00 74 10 99/65 (76) 95 09/23/19 02:00 82 14 99/71 (80) 95 09/23/19 01:00 89 25 109/72 (84) 92 09/23/19 00:00 98.6 100 20 122/84 (97) 95 09/23/19 00:00 102 09/23/19 00:00 Nasal Cannula 3.0 09/22/19 23:00 95 19 128/77 (94) 95 09/22/19 22:23 Nasal Cannula 3.0 09/22/19 22:18 100 150/84 09/22/19 22:00 99 17 150/84 (106) 96 09/22/19 21:50 90 09/22/19 21:32 98.4 95 18 146/97 (113) 95 09/22/19 21:20 96.7 100 16 143/94 98 Nasal Cannula 2.0 21 09/22/19 19:15 96.7 104 17 138/100 98 Nasal Cannula 2.0 21 09/22/19 18:55 96 18 95 Nasal Cannula 2.0 09/22/19 18:11 96.7 09/22/19 18:11 96.7 103 18 144/88 94 Nasal Cannula 4.0 09/22/19 16:25 99 18 Room Air 21 09/22/19 16:23 100 20 100 Room Air 21 99 18 99 09/22/19 15:50 98.2 78 22 145/95 90 Room Air 09/22/19 15:41 98.2 101 22 145/95 (112) 90 Room Air Micro: Microbiology Date/Time Source Procedure Growth Status 09/22/19 21:00 Rectum Received Critical Care - Subjective ROS Limited/Unobtainable: No Condition: improving FI02: 21 Sputum Amount: None I&O: Intake and Output 09/22/19 09/23/19 19:00 07:00 Intake Total 107.9715 ml Balance 107.9715 ml Intake IV Total 107.9715 ml # Voids 2 Harry Corona MD Sep 23, 2019 09:54
--- NOTE | 2019-09-23 10:12 | NUR ---
NURSE NOTES: Helped PT ambulated to the bedside commode, PT lower extremities weak; ambulated safely to and from commode back to bed; place fall risk wristband on L-wrist; bed at lowest position locked, bed alarm on. Will continue to monitor PT.
--- NOTE | 2019-09-23 11:26 | NUR ---
HAND-OFF: Report and PT given to EM Slater.
--- NOTE | 2019-09-23 11:27 | NUR ---
NURSE NOTES: Received patient from Danilo STRICKLAND. Patient is awake, alert and oriented x4. Receiving oxygen via Nasal Cannula at 3L/min. Sinus Rhythm on the heart monitor, HR 70. IV site is Right AC 20g patent and intact, Left AC 22g receiving Heparin drip at 22units/kg/hr, no signs of active bleeding. Bed is locked, placed in lowest position, side rails up x3, bed alarm on, call light within reach. Will continue to monitor.
--- NOTE | 2019-09-23 12:00 | NUR ---
TRANSFER TO FLOOR: Patient transferred to SDU, per Dr. Bach. RN willcontinue care from ICU to SDU Belongings and medications given to patient. Family and or S/O informed of transfer.
--- NOTE | 2019-09-23 13:37 | NUR ---
NURSE NOTES: Patient seen and assessed by Dr. Bach.
[2019-09-23] MEDS: Solu-MEDROL 40mg Inj IVP SCH ×2 (13:52→22:32)
--- NOTE | 2019-09-23 13:58 | Consultation ---
History of Present Illness General Chief Complaint: Present Illness Allergies: Coded Allergies: No Known Allergies (Unverified , 09/22/19) Patient History Healthcare decision maker Resuscitation status Full Code Advanced Directive on File Physical Exam Last 24 Hour Vital Signs Date Time Temp Pulse Resp B/P (MAP) Pulse Ox O2 Delivery O2 Flow Rate FiO2 09/23/19 13:52 80 110/66 09/23/19 12:00 81 22 119/86 (97) 98 09/23/19 12:00 Nasal Cannula 3.0 09/23/19 11:56 78 09/23/19 11:46 84 16 98 Nasal Cannula 3.0 32 81 14 97 09/23/19 11:00 80 24 113/81 (92) 98 09/23/19 10:00 76 22 128/92 (104) 97 09/23/19 09:00 70 16 117/87 (97) 97 09/23/19 08:59 98.3 09/23/19 08:00 Nasal Cannula 3.0 09/23/19 08:00 98.3 73 18 128/79 (95) 98 09/23/19 08:00 77 09/23/19 07:00 82 14 111/81 (91) 94 09/23/19 06:00 81 19 128/80 (96) 96 09/23/19 05:49 87 112/78 09/23/19 05:00 81 17 112/78 (89) 92 09/23/19 04:00 79 09/23/19 04:00 Nasal Cannula 3.0 09/23/19 04:00 98.4 90 24 124/72 (89) 99 09/23/19 03:47 87 13 97 Nasal Cannula 3.0 32 88 16 96 09/23/19 03:00 74 10 99/65 (76) 95 09/23/19 02:00 82 14 99/71 (80) 95 09/23/19 01:00 89 25 109/72 (84) 92 09/23/19 00:00 98.6 100 20 122/84 (97) 95 09/23/19 00:00 102 09/23/19 00:00 Nasal Cannula 3.0 09/22/19 23:00 95 19 128/77 (94) 95 09/22/19 22:23 Nasal Cannula 3.0 09/22/19 22:18 100 150/84 09/22/19 22:00 99 17 150/84 (106) 96 09/22/19 21:50 90 09/22/19 21:32 98.4 95 18 146/97 (113) 95 09/22/19 21:20 96.7 100 16 143/94 98 Nasal Cannula 2.0 21 09/22/19 19:15 96.7 104 17 138/100 98 Nasal Cannula 2.0 21 09/22/19 18:55 96 18 95 Nasal Cannula 2.0 09/22/19 18:11 96.7 09/22/19 18:11 96.7 103 18 144/88 94 Nasal Cannula 4.0 09/22/19 16:25 99 18 Room Air 21 09/22/19 16:23 100 20 100 Room Air 21 99 18 99 09/22/19 15:50 98.2 78 22 145/95 90 Room Air 09/22/19 15:41 98.2 101 22 145/95 (112) 90 Room Air Intake and Output 09/22/19 09/23/19 19:00 07:00 Intake Total 107.9715 ml Balance 107.9715 ml Intake IV Total 107.9715 ml # Voids 2 Laboratory Tests Test 09/22/19 16:11 09/22/19 16:30 09/22/19 17:09 09/23/19 06:05 White Blood Count 7.0 K/UL (4.8-10.8) 6.7 K/UL (4.8-10.8) Red Blood Count 3.91 M/UL (4.20-5.40) L 3.79 M/UL (4.20-5.40) L Hemoglobin 12.7 G/DL (12.0-16.0) 12.8 G/DL (12.0-16.0) Hematocrit 40.8 % (37.0-47.0) 37.4 % (37.0-47.0) Mean Corpuscular Volume 105 FL (80-99) H 99 FL (80-99) Mean Corpuscular Hemoglobin 32.5 PG (27.0-31.0) H 33.8 PG (27.0-31.0) H Mean Corpuscular Hemoglobin Concent 31.1 G/DL (32.0-36.0) L 34.2 G/DL (32.0-36.0) Red Cell Distribution Width 12.5 % (11.6-14.8) 12.1 % (11.6-14.8) Platelet Count 195 K/UL (150-450) 190 K/UL (150-450) Mean Platelet Volume 9.6 FL (6.5-10.1) 8.6 FL (6.5-10.1) Neutrophils (%) (Auto) 53.1 % (45.0-75.0) 37.8 % (45.0-75.0) L Lymphocytes (%) (Auto) 33.5 % (20.0-45.0) 43.7 % (20.0-45.0) Monocytes (%) (Auto) 6.1 % (1.0-10.0) 7.0 % (1.0-10.0) Eosinophils (%) (Auto) 4.9 % (0.0-3.0) H 9.7 % (0.0-3.0) H Basophils (%) (Auto) 2.4 % (0.0-2.0) H 1.8 % (0.0-2.0) Sodium Level 139 MMOL/L (136-145) 139 MMOL/L (136-145) Potassium Level 4.0 MMOL/L (3.5-5.1) 3.9 MMOL/L (3.5-5.1) Chloride Level 105 MMOL/L (98-107) 105 MMOL/L (98-107) Carbon Dioxide Level 24 MMOL/L (21-32) 25 MMOL/L (21-32) Anion Gap 10 mmol/L (5-15) 9 mmol/L (5-15) Blood Urea Nitrogen 18 mg/dL (7-18) 17 mg/dL (7-18) Creatinine 1.2 MG/DL (0.55-1.30) 1.1 MG/DL (0.55-1.30) Estimat Glomerular Filtration Rate 45.3 mL/min (>60) > 60 mL/min (>60) Glucose Level 84 MG/DL (74-106) 116 MG/DL (74-106) H Calcium Level 8.8 MG/DL (8.5-10.1) 8.2 MG/DL (8.5-10.1) L Total Bilirubin 0.4 MG/DL (0.2-1.0) Aspartate Amino Transf (AST/SGOT) 26 U/L (15-37) Alanine Aminotransferase (ALT/SGPT) 22 U/L (12-78) Alkaline Phosphatase 59 U/L (46-116) Total Creatine Kinase 314 U/L (26-308) H Troponin I 0.271 ng/mL (0.000-0.056) 0.067 ng/mL (0.000-0.056) Pro-B-Type Natriuretic Peptide 273 pg/mL (0-125) H Total Protein 7.8 G/DL (6.4-8.2) Albumin 3.9 G/DL (3.4-5.0) Globulin 3.9 g/dL Albumin/Globulin Ratio 1.0 (1.0-2.7) Lipase 172 U/L (73-393) Activated Partial Thromboplast Time 25 SEC (23-33) 42 SEC (23-33) H Urine Opiates Screen Positive (NEGATIVE) H Urine Barbiturates Screen Negative (NEGATIVE) Phencyclidine (PCP) Screen Negative (NEGATIVE) Urine Amphetamines Screen Negative (NEGATIVE) Urine Benzodiazepines Screen Negative (NEGATIVE) Urine Cocaine Screen Positive (NEGATIVE) H Urine Marijuana (THC) Screen Negative (NEGATIVE) Prothrombin Time 10.4 SEC (9.30-11.50) Prothromb Time International Ratio 1.0 (0.9-1.1) Test 09/23/19 13:15 Activated Partial Thromboplast Time Pending Microbiology Date/Time Source Procedure Growth Status 09/22/19 21:00 Rectum Received Height (Feet): 5 Height (Inches): 4.00 Weight (Pounds): 107 Medications Current Medications Medications (Trade) Dose Ordered Sig/Edil Route PRN Reason Start Time Stop Time Status Last Admin Dose Admin Acetaminophen (Tylenol) 650 mg Q6H PRN ORAL Mild Pain/Temp > 100.5 09/22/19 23:15 10/22/19 23:14 Acetaminophen/ Hydrocodone Bitart ([place] 5/325) 1 tab Q6H PRN ORAL For Pain 09/22/19 23:15 09/29/19 23:14 Albuterol/ Ipratropium (Albuterol/ Ipratropium) 3 ml Q4HRT HHN 09/23/19 03:00 09/27/19 23:14 09/23/19 11:45 Dextrose (Dextrose 50%) 25 ml Q30M PRN IV Hypoglycemia 09/22/19 23:15 10/22/19 23:14 Dextrose (Dextrose 50%) 50 ml Q30M PRN IV Hypoglycemia 09/22/19 23:15 10/22/19 23:14 Diltiazem HCl (Cardizem) 30 mg EVERY 8 HOURS ORAL 09/22/19 22:00 10/22/19 21:59 09/23/19 13:52 Doxycycline Monohydrate (Doxycycline Monohydrate) 100 mg EVERY 12 HOURS ORAL 09/23/19 09:00 09/30/19 08:59 09/23/19 08:19 Guaifenesin (Robitussin) 100 mg EVERY 6 HOURS PRN ORAL For Cough 09/22/19 23:15 10/22/19 23:14 09/23/19 12:35 Heparin Sodium/ Dextrose 500 ml @ 21.555 mls/ hr ADJUST PER PROTOCOL IV 09/23/19 06:45 10/23/19 06:44 09/23/19 06:54 Hydromorphone HCl (Dilaudid) 0.5 mg Q3HR PRN IVP Pain Scale (6-10) 09/22/19 23:15 09/29/19 23:14 09/23/19 08:20 Iohexol (Omnipaque) 100 mg NOW PRN INJ Radiology Procedure 09/22/19 17:30 09/24/19 17:26 Methylprednisolone Sodium Succinate (Solu-MEDROL) 40 mg EVERY 8 HOURS IVP 09/23/19 14:00 10/23/19 05:59 09/23/19 13:52 Pantoprazole (Protonix) 40 mg DAILY ORAL 09/23/19 09:00 10/23/19 08:59 09/23/19 08:19 Assessment/Plan Assessment/Plan: (1) Chest pain (2) Pulmonary embolism (3) Cocaine abuse seen dictated Ronen Posadas Sep 23, 2019 13:58
--- NOTE | 2019-09-23 14:09 | NUR ---
NURSE NOTES: APTT results were 93 SEC, no change to Heparin Drip rate based on protocol. Timed PTT ordered for 4am 09/24/2019. Will continue to monitor patient.
--- NOTE | 2019-09-23 16:00 | Consultation ---
DATE OF CONSULTATION: 09/23/2019 INFECTIOUS DISEASES CONSULTATION PRIMARY ATTENDING PHYSICIAN: Cahs Bach M.D. REASON FOR CONSULTATION: Asthma and COPD exacerbation. HISTORY OF PRESENT ILLNESS: The patient is a 64-year-old female admitted yesterday complaining of shortness of breath, coughing, runny nose, and history of asthma and was concerned about asthma attack. She was found to have pulmonary embolism on CT angiogram of the chest. She had chest pain in the left side. PAST MEDICAL HISTORY: Significant for hypertension and asthma. ALLERGIES: No known drug allergies. MEDICATIONS: Getting methylprednisone, Protonix, doxycycline, heparin, albuterol, ipratropium inhaler, hydromorphone, [place], Tylenol, and diltiazem. SOCIAL HISTORY: She is single, lives at home. She uses cocaine. She is an ex-smoker. REVIEW OF SYSTEMS: No significant fever and chills. No pain at the time of examination. Some shortness of breath, runny nose, and coughing. PHYSICAL EXAMINATION: VITAL SIGNS: Temperature 98.3 degrees, pulse 84, and blood pressure 113/81. GENERAL APPEARANCE: Seems to be underweight. HEAD AND NECK: [place] conjunctiva. HEART: Normal rate. LUNGS: Bilateral wheezing and decreased sounds. ABDOMEN: Soft and nontender. EXTREMITIES: She has no edema. NEUROLOGIC: She is awake, alert, oriented x3. LABORATORY AND DIAGNOSTIC DATA: WBC 6.7, hemoglobin 12.8, hematocrit 37.4, and platelets 190,000. Sodium 139, potassium 3.9, chloride 105, bicarbonate 25, BUN 17, creatinine 1.1, and glucose 116. Troponin was elevated at 0.271 at the time of admission, coming down. CK level is elevated at 314. CT angiogram of chest positive for bilateral pulmonary emboli, emphysema, atelectasis, and also had scoliosis. Urine toxicology was positive for cocaine and opiate. IMPRESSION: Pulmonary emboli. The patient have asthma attack, has emphysema, hypertension, scoliosis, cocaine and opiate abuse. RECOMMENDATION: We will continue with current treatment with doxycycline, bronchodilator, and methylprednisone. We will follow up the cultures. At the end of my exam, I thank Dr. Bach for involving me in the care of this patient. Ghassan Garcia M.D. DR: Emir JOB#: [id number] CC:
--- NOTE | 2019-09-23 17:32 | NUR ---
NURSE NOTES: Patient is resting comfortably in bed eating dinner, no complaints of pain, no signs of acute distress. Will continue to monitor.
--- NOTE | 2019-09-23 18:00 | Consultation ---
DATE OF CONSULTATION: 09/22/2019 CARDIOLOGY CONSULTATION CONSULTING PHYSICIAN: Dayron Tate M.D. REFERRING PHYSICIAN: Cash Bach M.D. REASON FOR CONSULTATION: Management of shortness of breath. HISTORY OF PRESENT ILLNESS: The patient is a very unfortunate 64-year-old female, who presents to the hospital with shortness of breath and specifically left arm pain with cough and runny nose. The patient also had been complaining of bilateral lower extremity weakness and numbness. She presents to the hospital after her primary care physician given her advice to do so. Apparently primary care physician gave her injection to the left arm about a few days ago when the patient initially started to have left arm pain. At the time of arrival to this hospital, blood pressure was 145/95 mmHg and heart rate was 101. Initial in the evaluation emergency department was significant for troponin I level of 0.271 and creatinine 1.2. A 12-lead electrocardiogram according to the emergency department note showed sinus rhythm rate of 88 with no ectopy. Chest x-ray was significant for possible left lower lobe opacities. CT of chest ruled in for small bilateral pulmonary embolism. The patient also was found to have positive cocaine in the urine. The patient was admitted to intensive care unit for further evaluation and management of bilateral pulmonary embolism. She was started on heparin drip. At the bedside, the patient in mild respiratory distress, also admitting to pleuritic chest pain. ALLERGIES: No known drug allergies. PAST MEDICAL HISTORY: Hypertension and asthma. SOCIAL HISTORY: Positive for tobacco and cocaine use. No history of alcohol. FAMILY HISTORY: No premature coronary artery disease in the first-degree relatives. REVIEW OF SYSTEMS: A 12-system review done essentially negative except what was mentioned in history of present illness. MEDICATIONS: List of medications at home, none reported. PHYSICAL EXAMINATION: VITAL SIGNS: Blood pressure was 144/95 mmHg, respirations 22, pulse of 101, temperature 98.2 degrees Fahrenheit, O2 saturation 90% on room air. GENERAL: The patient is a very unfortunate 64-year-old lady who appears to be in mild respiratory distress. HEENT: Somewhat agitated. Atraumatic and normocephalic. Anicteric. Pupils are equal, round, and reactive to light and accommodation. Extraocular muscles intact. NECK: JVP less than 5 cm. No carotid bruit. Carotid upstrokes 2+ bilaterally. CARDIOVASCULAR: Normal S1 and S2. Tachycardic. A 2/6 mid systolic murmur at the xiphoid area with RVS3. LUNGS: Diminished breath sounds in both lungs. ABDOMEN: Soft, nontender, and nondistended. No hepatosplenomegaly. Positive bowel sounds. EXTREMITIES: No evidence of edema, clubbing, or cyanosis. LABORATORY FINDINGS: Hematology, WBC 7.0, hemoglobin 12.7, hematocrit of 40.8, and platelet count is 195. Chemistry sodium 139, potassium 4.0, chloride 105, bicarbonate 24, BUN of 18, creatinine 1.2, glucose is 84 and calcium is 8.8. Troponin level is 0.271. ProBNP was 2733. PTT was 25. ASSESSMENT AND PLAN: The patient is an very unfortunate 64-year-old lady seen in Cardiology consultation. 1. Dyspnea. The patient already ruled in bilateral small pulmonary emboli, currently on heparin drip. We will like to obtain 2D echocardiography to assess for right ventricular strain and pulmonary hypertension. We will also evaluate LVEF. 2. History of asthma. Pulmonary followup. 3. Positive cocaine in the urine. We will check for possible cardiomyopathy in association with cocaine use. The total amount of time spent in the evaluation of this patient in particular more than 50% of my time was involved with discussion the time of care with the patient's daughter at the bedside. I would like to thank, Dr. Bach, for the courtesy of this consultation. Total amount of time spent in intensive care unit was 50 minutes. Dayron Tate M.D. DR: Paul JOB#: [id number] CC:
--- NOTE | 2019-09-23 19:16 | NUR ---
HAND-OFF: Report given to Ebony STRICKLAND.
--- NOTE | 2019-09-23 19:30 | NUR ---
NURSE NOTES: Received patient from Cristiano RN. Patient is awake, alert and oriented x4. Receiving oxygen via Nasal Cannula at 3L/min oxygen saturation 98%. no s/s of acute distress noted. Sinus Rhythm on the heart monitor, HR 81. IV site is Right AC 20g patent and intact, Left AC 22g Infusing Heparin drip at 22units/kg/hr, no s/s of active bleeding. Next timed PTT at 0400. Bed is locked, placed in lowest position, side rails up x3, bed alarm on, call light within reach. Instructed patient to use call light for assistance. Will continue plan of care.
--- NOTE | 2019-09-23 19:30 | Consultation ---
DATE OF CONSULTATION: 09/23/2019 PAIN MANAGEMENT CONSULTATION CONSULTING PHYSICIAN: Uche Frost M.D. REFERRING PHYSICIAN: Cash Bach M.D. PHYSICIAN DROPHAMMER OPERATOR: Evi Reyes CHIEF COMPLAINT: Chest pain. HISTORY OF PRESENT ILLNESS: This is a 64-year-old female, who is being seen on the stepdown unit of [facility] for initial pain management consultation. The patient has been admitted under the care of Dr. Bach due to elevated troponin and pulmonary embolism and has been having these issues since Tuesday. It is a constant acute pain, rating at 10/10, describing pain as a sharp pain with movement and reduced with medication. She was started on Dilaudid 0.5 mg IV every 3 hours and [place] 5 mg tablet every 6 hours as needed for pain. She is comfortable at this time. We were consulted so the patient would have adequate pain control while here in the hospital. Upon admission, patient had urine toxicology which found the patient to be positive for cocaine which she admits to taking. PAST MEDICAL HISTORY: Hypertension and asthma. PAST SURGICAL HISTORY: Breast cyst removal and hysterectomy. SOCIAL HISTORY: She is a smoker of tobacco, cocaine. Denies alcohol and IV drug abuse. ALLERGIES: No known drug allergies. MEDICATIONS: None taken as an outpatient. REVIEW OF SYSTEMS: Denies rash, fever, chills, sweating, dizziness, drowsiness, sore throat, or change in weight. No shortness of breath. No nausea, vomiting, diarrhea, blood in stool or urine. No dysuria. PHYSICAL EXAMINATION: GENERAL: Alert, awake, and oriented. VITAL SIGNS: Blood pressure 110/66, heart rate 80, oxygen saturation 98%, respirations 22. HEENT: PERRLA. NECK: Range of motion is full in all directions. No tenderness to paracervical muscles. No adenopathy. LUNGS: Decreased breath sounds bilaterally. HEART: S1 and S2 regular. ABDOMEN: Soft, nontender. BACK: Range of motion is full in flexion and extension. EXTREMITIES: Upper and lower extremity range of motion is decreased due to the patient condition. No cyanosis. No clubbing. Sensory is reduced. Reflexes are not obtainable. No adenopathy. ASSESSMENT AND PLAN: This is a 64-year-old female with chest pain, pulmonary embolism, cocaine abuse. The patient will be continued on Dilaudid and [place] here in the hospital. She was advised to cease using illegal substances which the patient seems to understand. The patient was discussed with Dr. Frost and he concurred. We will follow the patient. Thank you very much for the courtesy of this consultation. Uche Frost M.D. ELADIO Reyes DR: Carmel JOB#: [id number] CC: AFSANEH
[2019-09-23] MEDS: HYDROcodone/Acetamin 5/325 tab ORAL PRN (20:45)
--- NOTE | 2019-09-23 23:57 | Cardiology Progress Note ---
Assessment/Plan Assessment/Plan 1. Dyspnea due to bilateral small pulmonary emboli, continue heparin drip. 2D echocardiography shows no signs of RV strain, LVEF normal at 55%. May switich to Elquis 10mg po bid for a week and then 5mg BID for 3-6 months at the time of DC home. 2. Slight elevation of troponin I level is likely due to PE, no ECG changes of ischemia is evident. 3. History of asthma. Pulmonary followup. 4. Positive cocaine in the urine. Subjective Subjective Sinus rhythm at rate of 87. Transferred to the stepdown unit. Objective Last 24 Hour Vital Signs Date Time Temp Pulse Resp B/P (MAP) Pulse Ox O2 Delivery O2 Flow Rate FiO2 09/23/19 22:46 87 16 99 Nasal Cannula 3.0 32 84 16 96 09/23/19 22:32 88 110/89 09/23/19 21:15 98.3 09/23/19 20:00 89 09/23/19 20:00 Nasal Cannula 3.0 09/23/19 19:44 88 16 97 Nasal Cannula 3.0 32 89 16 94 09/23/19 17:10 87 09/23/19 16:00 Nasal Cannula 3.0 09/23/19 15:33 84 14 99 Nasal Cannula 3.0 32 75 12 96 09/23/19 14:00 90 21 110/89 (96) 98 09/23/19 13:52 80 110/66 09/23/19 12:00 81 22 119/86 (97) 98 09/23/19 12:00 Nasal Cannula 3.0 09/23/19 11:56 78 09/23/19 11:46 84 16 98 Nasal Cannula 3.0 32 81 14 97 09/23/19 11:00 80 24 113/81 (92) 98 09/23/19 10:00 76 22 128/92 (104) 97 09/23/19 09:00 70 16 117/87 (97) 97 09/23/19 08:59 98.3 09/23/19 08:00 Nasal Cannula 3.0 09/23/19 08:00 98.3 73 18 128/79 (95) 98 09/23/19 08:00 77 09/23/19 07:00 82 14 111/81 (91) 94 09/23/19 06:00 81 19 128/80 (96) 96 09/23/19 05:49 87 112/78 09/23/19 05:00 81 17 112/78 (89) 92 09/23/19 04:00 79 09/23/19 04:00 Nasal Cannula 3.0 09/23/19 04:00 98.4 90 24 124/72 (89) 99 09/23/19 03:47 87 13 97 Nasal Cannula 3.0 32 88 16 96 09/23/19 03:00 74 10 99/65 (76) 95 09/23/19 02:00 82 14 99/71 (80) 95 09/23/19 01:00 89 25 109/72 (84) 92 09/23/19 00:00 98.6 100 20 122/84 (97) 95 09/23/19 00:00 102 09/23/19 00:00 Nasal Cannula 3.0 Intake and Output 09/22/19 09/23/19 19:00 07:00 Intake Total 107.9715 ml Balance 107.9715 ml IV Total 107.9715 ml # Voids 2 2D Echo: LVEF 55%, Mild LVH, RVSP 31 mmHg, Normal RV size w/ no strain, Grade I LVDD Laboratory Tests Test 09/23/19 06:05 09/23/19 13:15 White Blood Count 6.7 K/UL (4.8-10.8) Red Blood Count 3.79 M/UL (4.20-5.40) L Hemoglobin 12.8 G/DL (12.0-16.0) Hematocrit 37.4 % (37.0-47.0) Mean Corpuscular Volume 99 FL (80-99) Mean Corpuscular Hemoglobin 33.8 PG (27.0-31.0) H Mean Corpuscular Hemoglobin Concent 34.2 G/DL (32.0-36.0) Red Cell Distribution Width 12.1 % (11.6-14.8) Platelet Count 190 K/UL (150-450) Mean Platelet Volume 8.6 FL (6.5-10.1) Neutrophils (%) (Auto) 37.8 % (45.0-75.0) L Lymphocytes (%) (Auto) 43.7 % (20.0-45.0) Monocytes (%) (Auto) 7.0 % (1.0-10.0) Eosinophils (%) (Auto) 9.7 % (0.0-3.0) H Basophils (%) (Auto) 1.8 % (0.0-2.0) Prothrombin Time 10.4 SEC (9.30-11.50) Prothromb Time International Ratio 1.0 (0.9-1.1) Activated Partial Thromboplast Time 42 SEC (23-33) H 93 SEC (23-33) H Sodium Level 139 MMOL/L (136-145) Potassium Level 3.9 MMOL/L (3.5-5.1) Chloride Level 105 MMOL/L (98-107) Carbon Dioxide Level 25 MMOL/L (21-32) Anion Gap 9 mmol/L (5-15) Blood Urea Nitrogen 17 mg/dL (7-18) Creatinine 1.1 MG/DL (0.55-1.30) Estimat Glomerular Filtration Rate > 60 mL/min (>60) Glucose Level 116 MG/DL (74-106) H Calcium Level 8.2 MG/DL (8.5-10.1) L Troponin I 0.067 ng/mL (0.000-0.056) Microbiology Date/Time Source Procedure Growth Status 09/22/19 21:00 Rectum Received Objective HEENT: Somewhat agitated. Atraumatic and normocephalic. Anicteric. Pupils are equal, round, and reactive to light and accommodation. Extraocular muscles intact. NECK: JVP less than 5 cm. No carotid bruit. Carotid upstrokes 2+ bilaterally. CARDIOVASCULAR: Normal S1 and S2. Tachycardic. A 2/6 mid systolic murmur at the xiphoid area with RVS3. LUNGS: Diminished breath sounds in both lungs. ABDOMEN: Soft, nontender, and nondistended. No hepatosplenomegaly. Positive bowel sounds. EXTREMITIES: No evidence of edema, clubbing, or cyanosis. Dayron Tate MD Sep 23, 2019 23:57
--- NOTE | 2019-09-24 02:15 | History and Physical Report ---
DATE OF ADMISSION: 09/22/2019 HISTORY OF PRESENT ILLNESS: The patient is admitted for bilateral pulmonary embolism and is supposed to be admitted to the stepdown per the ER doctor. The ER doctor said they agreed for step-down admission. The patient has been having three days of left arm pain and shortness of breath and chest pain and found to have pulmonary embolism, so he was admitted to step-down. The patient denies nausea, vomiting, or diarrhea. Denies radiation of the chest pain. The chest pain is made worse by cough and the patient also denies and denies wheezing. PAST MEDICAL HISTORY: Basically significant for GERD. MEDICATIONS: None. PAST SURGICAL HISTORY: Removal of cyst from the breast that was benign. SOCIAL HISTORY: History of smoking, history of drug abuse. No history of alcohol abuse. ALLERGIES: No known allergies. FAMILY HISTORY: Noncontributory. REVIEW OF SYSTEMS: HEENT: Denies headaches. Denies shortness of breath. Denies cough. RESPIRATORY: Reports shortness of breath. Denies cough. CARDIOVASCULAR: Reports chest pain. No radiation. No orthopnea. GASTROINTESTINAL: Denies nausea, vomiting, diarrhea. Occasional heartburn. EXTREMITIES: Denies pain. CENTRAL NERVOUS SYSTEM: Denies changes in speech pattern. PHYSICAL EXAMINATION: VITAL SIGNS: Temperature is not recorded, pulse is 90, blood pressure 110/89. HEENT: PERRLA. NECK: Supple. No lymphadenopathy. CHEST: Clear to auscultation. CARDIOVASCULAR: Regular rate and rhythm. No murmurs or extra sounds. GASTROINTESTINAL: Soft, nontender, nondistended. No organomegaly. EXTREMITIES: No edema. Moves all four extremities. Sensory intact to light touch. Reflexes equal on both sides. LABORATORY DATA: Laboratory hooker, essentially normal. Basically, troponin is 0.0271. ASSESSMENT AND PLAN: The patient was found to have bilateral pulmonary embolism and elevated troponin. I have asked Dr. Frost, Dr. Ge, Dr. Jose Bates, Dr. Corona, Dr. Tate, and Dr. Ghassan Garcia to see the patient for the elevated troponin, also for pulmonary embolism workup and also to rule out any source of infection, rule out bronchitis. Cash Bach M.D. DR: ROSENDO JOB#: [id number] CC:
[2019-09-24] MEDS: Albuterol/Ipratropium 3ml neb HHN SCH ×5 (03:04→21:35)
--- NOTE | 2019-09-24 05:12 | NUR ---
NURSE NOTES: Spoke with Lala From Lab PTT not yet ready, no result yet. will follow up
[2019-09-24 05:21] LABS: HEMATOCRIT 34.1 % (37.0-47.0); HEMOGLOBIN 11.7 G/DL (12.0-16.0); MEAN CORPUSCULAR VOLUME 98 FL (80-99); PLATELET COUNT 186 K/UL (150-450); RED BLOOD COUNT 3.48 M/UL (4.20-5.40); RED CELL DISTRIBUTION WIDTH 11.9 % (11.6-14.8); WHITE BLOOD COUNT 8.3 K/UL (4.8-10.8)
[2019-09-24] MEDS ORDERED: Heparin 5000 units/ml inj IV SCH (05:45)
[2019-09-24 05:50] LABS: ANION GAP 9 mmol/L (5-15); BLOOD UREA NITROGEN 15 mg/dL (7-18); CALCIUM 8.9 MG/DL (8.5-10.1); CARBON DIOXIDE 25 MMOL/L (21-32); CHLORIDE 102 MMOL/L (98-107); SODIUM 136 MMOL/L (136-145)
[2019-09-24] MEDS: Solu-MEDROL 40mg Inj IVP SCH ×3 (05:58→22:03)
[2019-09-24] MEDS: dilTIAZem HCl 30mg tab ORAL SCH ×3 (05:58→22:03)
[2019-09-24] MEDS: Heparin 25,000u/D5W 500ml 500 ML IV SCH ×2 (05:59→18:16)
[2019-09-24] MEDS: guaiFENesin 100mg/5ml Liq ud ORAL PRN (06:11)
[2019-09-24] MEDS: HYDROcodone/Acetamin 5/325 tab ORAL PRN ×2 (06:12→22:04)
--- NOTE | 2019-09-24 07:00 | NUR ---
NURSE NOTES: Received report from Ebony Juarez RN. Patient noted in bed, asleep, opens eyes to verbal stimuli, oriented x4. On oxygen 3L via NC, no s/s of acute distress noted. IV site is Right AC 20g patent and intact; Heparin drip infusing at 26units/kg/hr, no s/s of active bleeding. Next timed PTT at 1200 noon today. Denies pain/discomfort at this time. Safety precautions in place; Bed is locked, placed in lowest position, side rails up x3, bed alarm on, call light left within reach. Instructed patient to use call light for assistance, verbalized understanding. Will continue plan of care and will continue to monitor.
--- NOTE | 2019-09-24 07:05 | NUR ---
HAND-OFF: Report given to Rohini STRICKLAND.
[2019-09-24 08:00] VITALS: BP 113/77
[2019-09-24] MEDS: Doxycycline Monohydrate 100mg ORAL SCH ×2 (08:30→22:03)
--- NOTE | 2019-09-24 08:51 | General Progress Note ---
Assessment/Plan Assessment/Plan: (1) Chest pain (2) Pulmonary embolism (3) Cocaine abuse Patient to be continued on [place] and Dilaudid D/w Dr Frost and he concurred. Subjective Date patient seen: Sep 24, 2019 Time patient seen: 08:50 - am Constitutional: Reports: weakness HEENT: Reports: no symptoms Cardiovascular: Reports: no symptoms Respiratory: Reports: shortness of breath Gastrointestinal/Abdominal: Reports: no symptoms Genitourinary: Reports: no symptoms Neurologic/Psychiatric: Reports: no symptoms Endocrine: Reports: no symptoms Hematologic/Lymphatic: Reports: no symptoms Allergies: Coded Allergies: No Known Allergies (Unverified , 09/22/19) Subjective In bed mild pain at this time Tolerated on the Dilaudid and [place] No new complaints. Objective Last 24 Hour Vital Signs Date Time Temp Pulse Resp B/P (MAP) Pulse Ox O2 Delivery O2 Flow Rate FiO2 09/24/19 08:00 Nasal Cannula 3.0 09/24/19 07:13 81 16 99 Nasal Cannula 3.0 32 75 18 95 09/24/19 06:42 98.3 09/24/19 05:58 93 110/89 09/24/19 04:00 Nasal Cannula 3.0 09/24/19 04:00 88 09/24/19 04:00 93 09/24/19 03:04 82 16 99 Nasal Cannula 3.0 32 79 16 96 09/24/19 00:00 90 09/24/19 00:00 Nasal Cannula 3.0 09/23/19 22:46 87 16 99 Nasal Cannula 3.0 32 84 16 96 09/23/19 22:32 88 110/89 09/23/19 20:00 89 09/23/19 20:00 Nasal Cannula 3.0 09/23/19 19:44 88 16 97 Nasal Cannula 3.0 32 89 16 94 09/23/19 17:10 87 09/23/19 16:00 Nasal Cannula 3.0 09/23/19 15:33 84 14 99 Nasal Cannula 3.0 32 75 12 96 09/23/19 14:00 90 21 110/89 (96) 98 09/23/19 13:52 80 110/66 09/23/19 12:00 81 22 119/86 (97) 98 09/23/19 12:00 Nasal Cannula 3.0 09/23/19 11:56 78 2/2/20 11:46 84 16 98 Nasal Cannula 3.0 32 81 14 97 09/23/19 11:00 80 24 113/81 (92) 98 09/23/19 10:00 76 22 128/92 (104) 97 09/23/19 09:00 70 16 117/87 (97) 97 09/23/19 08:59 98.3 Intake and Output 09/23/19 09/24/19 18:59 06:59 Intake Total 639.2605 ml 253.430 ml Output Total 300 ml Balance 339.2605 ml 253.430 ml Intake Oral 400 ml IV Total 239.2605 ml 253.430 ml Output Urine Total 300 ml # Voids 4 # Bowel Movements 1 Laboratory Tests 09/23/19 13:15: Activated Partial Thromboplast Time 93H 09/24/19 04:20: Activated Partial Thromboplast Time 46H, White Blood Count 8.3, Red Blood Count 3.48L, Hemoglobin 11.7L, Hematocrit 34.1L, Mean Corpuscular Volume 98, Mean Corpuscular Hemoglobin 33.7H, Mean Corpuscular Hemoglobin Concent 34.3, Red Cell Distribution Width 11.9, Platelet Count 186, Mean Platelet Volume 8.8, Neutrophils (%) (Auto) , Lymphocytes (%) (Auto) , Monocytes (%) (Auto) , Eosinophils (%) (Auto) , Basophils (%) (Auto) , Neutrophils % (Manual) [Pending] , Lymphocytes % (Manual) [Pending], Platelet Estimate [Pending], Platelet Morphology [Pending], Sodium Level 136, Potassium Level 4.0, Chloride Level 102 , Carbon Dioxide Level 25, Anion Gap 9, Blood Urea Nitrogen 15, Creatinine 1.0, Estimat Glomerular Filtration Rate > 60, Glucose Level 183H, Calcium Level 8.9 Height (Feet): 5 Height (Inches): 4.00 Weight (Pounds): 107 General Appearance: no apparent distress, alert EENT: PERRL/EOMI, normal ENT inspection Neck: non-tender, normal alignment Cardiovascular: normal rate, regular rhythm Respiratory/Chest: decreased breath sounds Abdomen: non tender, soft Extremities: non-tender Edema: no edema noted Generalized Neurologic: alert, oriented x 3 Skin: warm/dry Ronen Posadas Sep 24, 2019 08:51
--- NOTE | 2019-09-24 09:06 | Hematology/Onc Progress Note ---
Assessment/Plan Assessment/Plan Assessment and Recs: # Bilateral Pulmonary embolism - noted on imaging --> consider to continue on heparin gtt --> hypercoag w/u as needed prn basis --> may be related to recent drug use as well --> recommend 3-6 mo of anticoagulation # Coagulopathy --> may be due to heparin gtt # Shortness of breath --> prn breathing treatments # Asthma --> as per pulm # Hypertension --> as per cards # Dvt ppx with hep gtt Oj Rn and appreciate consultation. Subjective Constitutional: Denies: no symptoms, chills, fever, malaise, weakness, other HEENT: Denies: no symptoms, eye pain, blurred vision, tearing, double vision, ear pain, ear discharge, nose pain, nose congestion, throat pain, throat swelling, mouth pain, mouth swelling, other Cardiovascular: Denies: no symptoms, chest pain, edema, irregular heart rate, lightheadedness, palpitations, syncope, other Respiratory: Denies: no symptoms, cough, shortness of breath, SOB with excertion, SOB at rest, sputum, wheezing, other Gastrointestinal/Abdominal: Denies: no symptoms, abdomen distended, abdominal pain, black stools, tarry stools, blood in stool, constipated, diarrhea, difficulty swallowing, nausea, poor appetite, poor fluid intake, rectal bleeding , vomiting, other Genitourinary: Denies: no symptoms, burning, discharge, frequency, flank pain, hematuria, incontinence, pain, urgency, other Neurologic/Psychiatric: Denies: no symptoms, anxiety, depressed, emotional problems, headache, numbness, paresthesia, pre-existing deficit, seizure, tingling, tremors, weakness, other Endocrine: Denies: no symptoms, excessive sweating, flushing, intolerance to cold, intolerance to heat, increased hunger, increased thirst, increased urine, unexplained weight gain, unexplained weight loss, other Hematologic/Lymphatic: Denies: no symptoms, anemia, easy bleeding, easy bruising, adenopathy, other Allergies: Coded Allergies: No Known Allergies (Unverified , 09/22/19) Subjective 2/3: no bleeding, no f/c, no night sweats, no major events Objective Objective Current Medications Medications (Trade) Dose Ordered Sig/Edil Route PRN Reason Start Time Stop Time Status Last Admin Dose Admin Acetaminophen (Tylenol) 650 mg Q6H PRN ORAL Mild Pain/Temp > 100.5 09/22/19 23:15 10/22/19 23:14 Acetaminophen/ Hydrocodone Bitart ([place] 5/325) 1 tab Q6H PRN ORAL For Pain 09/22/19 23:15 09/29/19 23:14 09/24/19 06:12 Albuterol/ Ipratropium (Albuterol/ Ipratropium) 3 ml Q4HRT HHN 09/23/19 03:00 09/27/19 23:14 09/24/19 07:03 Dextrose (Dextrose 50%) 25 ml Q30M PRN IV Hypoglycemia 09/22/19 23:15 10/22/19 23:14 Dextrose (Dextrose 50%) 50 ml Q30M PRN IV Hypoglycemia 09/22/19 23:15 10/22/19 23:14 Diltiazem HCl (Cardizem) 30 mg EVERY 8 HOURS ORAL 09/22/19 22:00 10/22/19 21:59 09/24/19 05:58 Doxycycline Monohydrate (Doxycycline Monohydrate) 100 mg EVERY 12 HOURS ORAL 09/23/19 09:00 09/30/19 08:59 09/24/19 08:30 Guaifenesin (Robitussin) 100 mg EVERY 6 HOURS PRN ORAL For Cough 09/22/19 23:15 10/22/19 23:14 09/24/19 06:11 Heparin Sodium/ Dextrose 500 ml @ 25.474 mls/ hr ADJUST PER PROTOCOL IV 09/24/19 06:00 10/24/19 05:59 09/24/19 05:59 Hydromorphone HCl (Dilaudid) 0.5 mg Q3HR PRN IVP Pain Scale (6-10) 09/22/19 23:15 09/29/19 23:14 09/23/19 08:20 Iohexol (Omnipaque) 100 mg NOW PRN INJ Radiology Procedure 09/22/19 17:30 09/24/19 17:26 Methylprednisolone Sodium Succinate (Solu-MEDROL) 40 mg EVERY 8 HOURS IVP 09/23/19 14:00 10/23/19 05:59 09/24/19 05:58 Pantoprazole (Protonix) 40 mg DAILY ORAL 09/23/19 09:00 3/3/20 08:59 09/24/19 08:30 Last 24 Hour Vital Signs Date Time Temp Pulse Resp B/P (MAP) Pulse Ox O2 Delivery O2 Flow Rate FiO2 09/24/19 08:00 Nasal Cannula 3.0 09/24/19 08:00 98.4 92 20 113/77 (89) 93 09/24/19 07:13 81 16 99 Nasal Cannula 3.0 32 75 18 95 09/24/19 06:42 98.3 09/24/19 05:58 93 110/89 09/24/19 04:00 Nasal Cannula 3.0 09/24/19 04:00 88 09/24/19 04:00 93 09/24/19 03:04 82 16 99 Nasal Cannula 3.0 32 79 16 96 09/24/19 00:00 90 09/24/19 00:00 Nasal Cannula 3.0 09/23/19 22:46 87 16 99 Nasal Cannula 3.0 32 84 16 96 09/23/19 22:32 88 110/89 09/23/19 20:00 89 09/23/19 20:00 Nasal Cannula 3.0 09/23/19 19:44 88 16 97 Nasal Cannula 3.0 32 89 16 94 09/23/19 17:10 87 09/23/19 16:00 Nasal Cannula 3.0 09/23/19 15:33 84 14 99 Nasal Cannula 3.0 32 75 12 96 09/23/19 14:00 90 21 110/89 (96) 98 09/23/19 13:52 80 110/66 09/23/19 12:00 81 22 119/86 (97) 98 09/23/19 12:00 Nasal Cannula 3.0 09/23/19 11:56 78 09/23/19 11:46 84 16 98 Nasal Cannula 3.0 32 81 14 97 09/23/19 11:00 80 24 113/81 (92) 98 09/23/19 10:00 76 22 128/92 (104) 97 09/23/19 09:00 70 16 117/87 (97) 97 09/23/19 08:59 98.3 09/23/19 08:00 Nasal Cannula 3.0 09/23/19 08:00 98.3 73 18 128/79 (95) 98 09/23/19 08:00 77 09/23/19 07:00 82 14 111/81 (91) 94 09/23/19 06:00 81 19 128/80 (96) 96 09/23/19 05:49 87 112/78 09/23/19 05:00 81 17 112/78 (89) 92 09/23/19 04:00 79 09/23/19 04:00 Nasal Cannula 3.0 09/23/19 04:00 98.4 90 24 124/72 (89) 99 09/23/19 03:47 87 13 97 Nasal Cannula 3.0 32 88 16 96 09/23/19 03:00 74 10 99/65 (76) 95 09/23/19 02:00 82 14 99/71 (80) 95 09/23/19 01:00 89 25 109/72 (84) 92 09/23/19 00:00 98.6 100 20 122/84 (97) 95 09/23/19 00:00 102 09/23/19 00:00 Nasal Cannula 3.0 09/22/19 23:00 95 19 128/77 (94) 95 09/22/19 22:23 Nasal Cannula 3.0 09/22/19 22:18 100 150/84 09/22/19 22:00 99 17 150/84 (106) 96 09/22/19 21:50 90 09/22/19 21:32 98.4 95 18 146/97 (113) 95 09/22/19 21:20 96.7 100 16 143/94 98 Nasal Cannula 2.0 21 09/22/19 19:15 96.7 104 17 138/100 98 Nasal Cannula 2.0 21 09/22/19 18:55 96 18 95 Nasal Cannula 2.0 09/22/19 18:11 96.7 09/22/19 18:11 96.7 103 18 144/88 94 Nasal Cannula 4.0 09/22/19 16:25 99 18 Room Air 21 09/22/19 16:23 100 20 100 Room Air 21 99 18 99 09/22/19 15:50 98.2 78 22 145/95 90 Room Air 09/22/19 15:41 98.2 101 22 145/95 (112) 90 Room Air Intake and Output 09/23/19 09/24/19 19:00 07:00 Intake Total 658.660 ml 257.349 ml Output Total 300 ml Balance 358.660 ml 257.349 ml Intake Oral 400 ml IV Total 258.660 ml 257.349 ml Output Urine Total 300 ml # Voids 4 # Bowel Movements 1 Labs Test 09/22/19 16:11 09/22/19 16:30 09/22/19 17:09 09/23/19 06:05 White Blood Count 7.0 K/UL (4.8-10.8) 6.7 K/UL (4.8-10.8) Red Blood Count 3.91 M/UL (4.20-5.40) 3.79 M/UL (4.20-5.40) Hemoglobin 12.7 G/DL (12.0-16.0) 12.8 G/DL (12.0-16.0) Hematocrit 40.8 % (37.0-47.0) 37.4 % (37.0-47.0) Mean Corpuscular Volume 105 FL (80-99) 99 FL (80-99) Mean Corpuscular Hemoglobin 32.5 PG (27.0-31.0) 33.8 PG (27.0-31.0) Mean Corpuscular Hemoglobin Concent 31.1 G/DL (32.0-36.0) 34.2 G/DL (32.0-36.0) Red Cell Distribution Width 12.5 % (11.6-14.8) 12.1 % (11.6-14.8) Platelet Count 195 K/UL (150-450) 190 K/UL (150-450) Mean Platelet Volume 9.6 FL (6.5-10.1) 8.6 FL (6.5-10.1) Neutrophils (%) (Auto) 53.1 % (45.0-75.0) 37.8 % (45.0-75.0) Lymphocytes (%) (Auto) 33.5 % (20.0-45.0) 43.7 % (20.0-45.0) Monocytes (%) (Auto) 6.1 % (1.0-10.0) 7.0 % (1.0-10.0) Eosinophils (%) (Auto) 4.9 % (0.0-3.0) 9.7 % (0.0-3.0) Basophils (%) (Auto) 2.4 % (0.0-2.0) 1.8 % (0.0-2.0) Sodium Level 139 MMOL/L (136-145) 139 MMOL/L (136-145) Potassium Level 4.0 MMOL/L (3.5-5.1) 3.9 MMOL/L (3.5-5.1) Chloride Level 105 MMOL/L (98-107) 105 MMOL/L (98-107) Carbon Dioxide Level 24 MMOL/L (21-32) 25 MMOL/L (21-32) Anion Gap 10 mmol/L (5-15) 9 mmol/L (5-15) Blood Urea Nitrogen 18 mg/dL (7-18) 17 mg/dL (7-18) Creatinine 1.2 MG/DL (0.55-1.30) 1.1 MG/DL (0.55-1.30) Estimat Glomerular Filtration Rate 45.3 mL/min (>60) > 60 mL/min (>60) Glucose Level 84 MG/DL (74-106) 116 MG/DL (74-106) Calcium Level 8.8 MG/DL (8.5-10.1) 8.2 MG/DL (8.5-10.1) Total Bilirubin 0.4 MG/DL (0.2-1.0) Aspartate Amino Transf (AST/SGOT) 26 U/L (15-37) Alanine Aminotransferase (ALT/SGPT) 22 U/L (12-78) Alkaline Phosphatase 59 U/L (46-116) Total Creatine Kinase 314 U/L (26-308) Troponin I 0.271 ng/mL (0.000-0.056) 0.067 ng/mL (0.000-0.056) Pro-B-Type Natriuretic Peptide 273 pg/mL (0-125) Total Protein 7.8 G/DL (6.4-8.2) Albumin 3.9 G/DL (3.4-5.0) Globulin 3.9 g/dL Albumin/Globulin Ratio 1.0 (1.0-2.7) Lipase 172 U/L (73-393) Activated Partial Thromboplast Time 25 SEC (23-33) 42 SEC (23-33) Urine Opiates Screen Positive (NEGATIVE) Urine Barbiturates Screen Negative (NEGATIVE) Phencyclidine (PCP) Screen Negative (NEGATIVE) Urine Amphetamines Screen Negative (NEGATIVE) Urine Benzodiazepines Screen Negative (NEGATIVE) Urine Cocaine Screen Positive (NEGATIVE) Urine Marijuana (THC) Screen Negative (NEGATIVE) Prothrombin Time 10.4 SEC (9.30-11.50) Prothromb Time International Ratio 1.0 (0.9-1.1) Test 09/23/19 13:15 09/24/19 04:20 Activated Partial Thromboplast Time 93 SEC (23-33) 46 SEC (23-33) White Blood Count 8.3 K/UL (4.8-10.8) Red Blood Count 3.48 M/UL (4.20-5.40) Hemoglobin 11.7 G/DL (12.0-16.0) Hematocrit 34.1 % (37.0-47.0) Mean Corpuscular Volume 98 FL (80-99) Mean Corpuscular Hemoglobin 33.7 PG (27.0-31.0) Mean Corpuscular Hemoglobin Concent 34.3 G/DL (32.0-36.0) Red Cell Distribution Width 11.9 % (11.6-14.8) Platelet Count 186 K/UL (150-450) Mean Platelet Volume 8.8 FL (6.5-10.1) Neutrophils (%) (Auto) % (45.0-75.0) Lymphocytes (%) (Auto) % (20.0-45.0) Monocytes (%) (Auto) % (1.0-10.0) Eosinophils (%) (Auto) % (0.0-3.0) Basophils (%) (Auto) % (0.0-2.0) Sodium Level 136 MMOL/L (136-145) Potassium Level 4.0 MMOL/L (3.5-5.1) Chloride Level 102 MMOL/L (98-107) Carbon Dioxide Level 25 MMOL/L (21-32) Anion Gap 9 mmol/L (5-15) Blood Urea Nitrogen 15 mg/dL (7-18) Creatinine 1.0 MG/DL (0.55-1.30) Estimat Glomerular Filtration Rate > 60 mL/min (>60) Glucose Level 183 MG/DL (74-106) Calcium Level 8.9 MG/DL (8.5-10.1) Height (Feet): 5 Height (Inches): 4.00 Weight (Pounds): 107 Objective Physical Exam General: well appearing, nad HEENT: full range of motion, supple, no meningismus Resp: no respiratory distress, no retraction, no accessory muscle use CV: normal peripheral pulses, regular rate, rhythm GI: normal bowel sounds, non tender, soft, no mass : no CVA tenderness MSK: subjectively complains of left arm pain Neurologic: motor strength/tone normal, responsive Jose Bates MD Sep 24, 2019 09:06
[2019-09-24 12:00] VITALS: BP 133/82
--- NOTE | 2019-09-24 12:29 | Infectious Diseases Prog Note ---
Assessment/Plan Assessment/Plan IMPRESSION: Pulmonary emboli. Asthma attack, has Emphysema, Hypertension, Scoliosis, Cocaine and opiate abuse. RECOMMENDATION: We will continue with current treatment with doxycycline, bronchodilator,heparin and methylprednisone. Subjective ROS Limited/Unobtainable: No Constitutional: Reports: no symptoms, other - feels better Respiratory: Reports: shortness of breath, dry cough Cardiovascular: Reports: no symptoms Gastrointestinal/Abdominal: Reports: no symptoms Allergies: Coded Allergies: No Known Allergies (Unverified , 09/22/19) Objective Vital Signs Last 24 Hour Vital Signs Date Time Temp Pulse Resp B/P (MAP) Pulse Ox O2 Delivery O2 Flow Rate FiO2 09/24/19 12:00 Nasal Cannula 3.0 09/24/19 11:02 80 16 97 Nasal Cannula 3.0 32 71 18 94 09/24/19 08:00 Nasal Cannula 3.0 09/24/19 08:00 98.4 92 20 113/77 (89) 93 09/24/19 07:55 92 09/24/19 07:13 81 16 99 Nasal Cannula 3.0 32 75 18 95 09/24/19 06:42 98.3 09/24/19 05:58 93 110/89 09/24/19 04:00 Nasal Cannula 3.0 09/24/19 04:00 88 09/24/19 04:00 93 09/24/19 03:04 82 16 99 Nasal Cannula 3.0 32 79 16 96 09/24/19 00:00 90 09/24/19 00:00 Nasal Cannula 3.0 09/23/19 22:46 87 16 99 Nasal Cannula 3.0 32 84 16 96 09/23/19 22:32 88 110/89 09/23/19 20:00 89 09/23/19 20:00 Nasal Cannula 3.0 09/23/19 19:44 88 16 97 Nasal Cannula 3.0 32 89 16 94 09/23/19 17:10 87 09/23/19 16:00 Nasal Cannula 3.0 09/23/19 15:33 84 14 99 Nasal Cannula 3.0 32 75 12 96 09/23/19 14:00 90 21 110/89 (96) 98 09/23/19 13:52 80 110/66 Height (Feet): 5 Height (Inches): 4.00 Weight (Pounds): 107 General Appearance: no acute distress HEENT: mucous membranes moist Respiratory/Chest: lungs clear, other - oxygenm by nasal cannula Cardiovascular: normal rate Abdomen: soft, non tender Extremities: no edema Neurologic/Psychiatric: alert, oriented x 3, responsive Microbiology Date/Time Source Procedure Growth Status 09/22/19 21:00 Rectum Received Laboratory Tests Test 09/23/19 13:15 09/24/19 04:20 09/24/19 12:00 Activated Partial Thromboplast Time 93 SEC (23-33) H 46 SEC (23-33) H Pending White Blood Count 8.3 K/UL (4.8-10.8) Red Blood Count 3.48 M/UL (4.20-5.40) L Hemoglobin 11.7 G/DL (12.0-16.0) L Hematocrit 34.1 % (37.0-47.0) L Mean Corpuscular Volume 98 FL (80-99) Mean Corpuscular Hemoglobin 33.7 PG (27.0-31.0) H Mean Corpuscular Hemoglobin Concent 34.3 G/DL (32.0-36.0) Red Cell Distribution Width 11.9 % (11.6-14.8) Platelet Count 186 K/UL (150-450) Mean Platelet Volume 8.8 FL (6.5-10.1) Neutrophils (%) (Auto) % (45.0-75.0) Lymphocytes (%) (Auto) % (20.0-45.0) Monocytes (%) (Auto) % (1.0-10.0) Eosinophils (%) (Auto) % (0.0-3.0) Basophils (%) (Auto) % (0.0-2.0) Differential Total Cells Counted 100 Neutrophils % (Manual) 94 % (45-75) H Lymphocytes % (Manual) 4 % (20-45) L Monocytes % (Manual) 2 % (1-10) Eosinophils % (Manual) 0 % (0-3) Basophils % (Manual) 0 % (0-2) Band Neutrophils 0 % (0-8) Platelet Estimate Adequate Platelet Morphology Normal Red Blood Cell Morphology Normal Sodium Level 136 MMOL/L (136-145) Potassium Level 4.0 MMOL/L (3.5-5.1) Chloride Level 102 MMOL/L (98-107) Carbon Dioxide Level 25 MMOL/L (21-32) Anion Gap 9 mmol/L (5-15) Blood Urea Nitrogen 15 mg/dL (7-18) Creatinine 1.0 MG/DL (0.55-1.30) Estimat Glomerular Filtration Rate > 60 mL/min (>60) Glucose Level 183 MG/DL (74-106) H Calcium Level 8.9 MG/DL (8.5-10.1) Current Medications Medications (Trade) Dose Ordered Sig/Edil Route PRN Reason Start Time Stop Time Status Last Admin Dose Admin Acetaminophen (Tylenol) 650 mg Q6H PRN ORAL Mild Pain/Temp > 100.5 09/22/19 23:15 10/22/19 23:14 Acetaminophen/ Hydrocodone Bitart ([place] 5/325) 1 tab Q6H PRN ORAL For Pain 09/22/19 23:15 09/29/19 23:14 09/24/19 06:12 Albuterol/ Ipratropium (Albuterol/ Ipratropium) 3 ml Q4HRT HHN 09/23/19 03:00 09/27/19 23:14 09/24/19 10:52 Dextrose (Dextrose 50%) 25 ml Q30M PRN IV Hypoglycemia 09/22/19 23:15 10/22/19 23:14 Dextrose (Dextrose 50%) 50 ml Q30M PRN IV Hypoglycemia 09/22/19 23:15 10/22/19 23:14 Diltiazem HCl (Cardizem) 30 mg EVERY 8 HOURS ORAL 09/22/19 22:00 10/22/19 21:59 09/24/19 05:58 Doxycycline Monohydrate (Doxycycline Monohydrate) 100 mg EVERY 12 HOURS ORAL 09/23/19 09:00 09/30/19 08:59 09/24/19 08:30 Guaifenesin (Robitussin) 100 mg EVERY 6 HOURS PRN ORAL For Cough 09/22/19 23:15 10/22/19 23:14 09/24/19 06:11 Heparin Sodium/ Dextrose 500 ml @ 25.474 mls/ hr ADJUST PER PROTOCOL IV 09/24/19 06:00 10/24/19 05:59 09/24/19 05:59 Hydromorphone HCl (Dilaudid) 0.5 mg Q3HR PRN IVP Pain Scale (6-10) 09/22/19 23:15 09/29/19 23:14 09/23/19 08:20 Iohexol (Omnipaque) 100 mg NOW PRN INJ Radiology Procedure 09/22/19 17:30 09/24/19 17:26 Methylprednisolone Sodium Succinate (Solu-MEDROL) 40 mg EVERY 8 HOURS IVP 09/23/19 14:00 10/23/19 05:59 09/24/19 05:58 Pantoprazole (Protonix) 40 mg DAILY ORAL 09/23/19 09:00 10/23/19 08:59 09/24/19 08:30 Ghassan Garcia MD Sep 24, 2019 12:29
[2019-09-24 16:00] VITALS: BP 111/84
--- NOTE | 2019-09-24 16:10 | NUR ---
YARD COORDINATORCLAY CASTER 64 YO FEMALE FROM HOME TO ER CC ASTHMA EXACERBATION LEFT ARM PAIN SINCE TUESDAY SI: ELEVATED TROPONIN,PULMONARY EMBOLI T. 98.2 HR 101 RR 22 B/P 145/45 K 314 TROP 0.271 BNP 293 URINE TOX+ COCAINE AND OPIATES IS: MORPHINE SULFATE IV ZOFRAN IV ASA PO ALB HHN ADMITTED TO STEP DOWN STEP DOWN STATUS DCP PENDING HOSPITAL STAY
[2019-09-24] MEDS ORDERED: QUETIAPINE FUM300 MG ORAL (17:54)
[2019-09-24] MEDS ORDERED: PAROXETINE HCL40 MG ORAL (17:56)
[2019-09-24] MEDS ORDERED: ACETAMINOPHEN-1 EAC1 ORAL (17:56)
[2019-09-24] MEDS ORDERED: NAPROXEN500 M2 ORAL (17:56)
[2019-09-24] MEDS ORDERED: OYSTER SHELL 51 EAC1 PO (17:56)
[2019-09-24] MEDS ORDERED: ALBUTEROL SULF8.5 GM INH (18:06)
--- NOTE | 2019-09-24 18:55 | NUR ---
HAND-OFF: Report given to EM Beck. Patient in stable condition.
--- NOTE | 2019-09-24 19:00 | NUR ---
NURSE NOTES: Received patient from Rohini STRICKLAND. Patient is awake, alert and oriented x4. Receiving oxygen via Nasal Cannula at 3L/min oxygen saturation 98%. no s/s of acute distress noted. Family at bedside. patient eating dinner at this time. no coughing noted. Sinus Rhythm on the heart monitor, HR 79 IV site is Right AC 20g patent and intact, Left AC 22g Infusing Heparin drip at 26units/kg/hr, no s/s of active bleeding. Next timed PTT at 0400. Bed is locked, placed in lowest position, side rails up x3, bed alarm on, call light within reach. Instructed patient to use call light for assistance. Will continue plan of care.
[2019-09-24 20:00] VITALS: BP 132/80
--- NOTE | 2019-09-24 21:12 | Pulmonolgy Critical Care Note ---
Critical Care - Asmt/Plan Assessment/Plan: Pulmonary CCM Progress Note HPI Patient is a 64 year old woman with previous history of Asthma, admitted c/o short of breath,increased cough some runny nose Has chest and left arm pain as well involving the upper shoulder upper arm and left forearm, no hemoptysis Denies any neck pain denies any vomiting or diarrhea Denies any pleurisy denies any recent fevers Noted to have Pulmonary Emboli - on Heparin gtt Denies SOB LE dupplex negative Allergies: No Known Allergies Past Medical History: Asthma, Hypertension Social History: Cocaine use All Other Systems: negative except mentioned in HPI Physical Exam Vital Signs Noted General Appearance: well appearing, no apparent distress Head: normocephalic, atraumatic Eyes: bilateral eye PERRL, bilateral eye EOMI ENT: hearing grossly normal, normal pharynx, TMs + canals normal, uvula midline Neck: full range of motion, supple, no meningismus, no bony tend Respiratory: no respiratory distress, no retraction, no accessory muscle use, wheezing - Bilaterally Cardiovascular: normal peripheral pulses, regular rate, rhythm, HS1, HS2 normal ,no edema, no gallop, no JVD, no murmur Gastrointestinal: normal bowel sounds, non tender, soft, no mass, no organomegaly, non-distended, no guarding, no hernia, no pulsatile mass, no rebound Genitourinary: no CVA tenderness Musculoskeletal: other - Subjectively complains of left arm pain however moves in all flexion extension able to supinate and pronate without focal deficit appropriate airplane cover maker Neurologic: motor strength/tone normal, instructor warper III-XII nml as tested, oriented x3 , sensory intact, responsive Skin: no rash Lymphatic: normal inspection, no adenopathy Impression: Pulmonary embolism Shortness of breath Asthma Hypertension Cocaine Use Plan Heparin gtt Breathing treatments O2 PRN 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 Cardiology following Echocardiogram PPX Monitor labs Labs noted Test 09/22/19 16:11 09/22/19 17:09 White Blood Count 7.0 K/UL (4.8-10.8) Red Blood Count 3.91 M/UL (4.20-5.40) Hemoglobin 12.7 G/DL (12.0-16.0) Hematocrit 40.8 % (37.0-47.0) Mean Corpuscular Volume 105 FL (80-99) Mean Corpuscular Hemoglobin 32.5 PG (27.0-31.0) Mean Corpuscular Hemoglobin Concent 31.1 G/DL (32.0-36.0) Red Cell Distribution Width 12.5 % (11.6-14.8) Platelet Count 195 K/UL (150-450) Mean Platelet Volume 9.6 FL (6.5-10.1) Neutrophils (%) (Auto) 53.1 % (45.0-75.0) Lymphocytes (%) (Auto) 33.5 % (20.0-45.0) Monocytes (%) (Auto) 6.1 % (1.0-10.0) Eosinophils (%) (Auto) 4.9 % (0.0-3.0) Basophils (%) (Auto) 2.4 % (0.0-2.0) Sodium Level 139 MMOL/L (136-145) Potassium Level 4.0 MMOL/L (3.5-5.1) Chloride Level 105 MMOL/L (98-107) Carbon Dioxide Level 24 MMOL/L (21-32) Anion Gap 10 mmol/L (5-15) Blood Urea Nitrogen 18 mg/dL (7-18) Creatinine 1.2 MG/DL (0.55-1.30) Estimat Glomerular Filtration Rate 45.3 mL/min (>60) Glucose Level 84 MG/DL (74-106) Calcium Level 8.8 MG/DL (8.5-10.1) Total Bilirubin 0.4 MG/DL (0.2-1.0) Aspartate Amino Transf (AST/SGOT) 26 U/L (15-37) Alanine Aminotransferase (ALT/SGPT) 22 U/L (12-78) Alkaline Phosphatase 59 U/L (46-116) Total Creatine Kinase 314 U/L (26-308) Troponin I 0.271 ng/mL (0.000-0.056) Pro-B-Type Natriuretic Peptide 273 pg/mL (0-125) Total Protein 7.8 G/DL (6.4-8.2) Albumin 3.9 G/DL (3.4-5.0) Globulin 3.9 g/dL Albumin/Globulin Ratio 1.0 (1.0-2.7) Lipase 172 U/L (73-393) Urine Opiates Screen Positive (NEGATIVE) Urine Barbiturates Screen Negative (NEGATIVE) Phencyclidine (PCP) Screen Negative (NEGATIVE) Urine Amphetamines Screen Negative (NEGATIVE) Urine Benzodiazepines Screen Negative (NEGATIVE) Urine Cocaine Screen Positive (NEGATIVE) Urine Marijuana (THC) Screen Negative (NEGATIVE) EKG: Rate: normal Rhythm: NSR ST Segments: other - Nonspecific ST and T wave changes Chest X-Ray: no consolidation, no effusion, other - Left lower lobe opacities CTA chest: Study is positive for small bilateral pulmonary emboli Seen earlier Critical Care - Objective Last 24 Hour Vital Signs Date Time Temp Pulse Resp B/P (MAP) Pulse Ox O2 Delivery O2 Flow Rate FiO2 09/24/19 16:00 Nasal Cannula 3.0 09/24/19 16:00 97.2 98 20 111/84 (93) 96 09/24/19 15:22 101 09/24/19 15:11 90 16 99 Nasal Cannula 3.0 32 85 18 96 09/24/19 14:35 89 133/82 09/24/19 12:00 97.9 89 20 133/82 (99) 94 09/24/19 12:00 Nasal Cannula 3.0 09/24/19 11:48 90 09/24/19 11:02 80 16 97 Nasal Cannula 3.0 32 71 18 94 09/24/19 08:00 Nasal Cannula 3.0 09/24/19 08:00 98.4 92 20 113/77 (89) 93 09/24/19 07:55 92 09/24/19 07:13 81 16 99 Nasal Cannula 3.0 32 75 18 95 09/24/19 06:42 98.3 09/24/19 05:58 93 110/89 09/24/19 04:00 Nasal Cannula 3.0 09/24/19 04:00 88 09/24/19 04:00 93 09/24/19 03:04 82 16 99 Nasal Cannula 3.0 32 79 16 96 09/24/19 00:00 90 09/24/19 00:00 Nasal Cannula 3.0 09/23/19 22:46 87 16 99 Nasal Cannula 3.0 32 84 16 96 09/23/19 22:32 88 110/89 Micro: Microbiology Date/Time Source Procedure Growth Status 09/22/19 21:00 Rectum Received Critical Care - Subjective ROS Limited/Unobtainable: No FI02: 21 Sputum Amount: None I&O: Intake and Output 09/23/19 09/24/19 19:00 07:00 Intake Total 658.660 ml 257.349 ml Output Total 300 ml Balance 358.660 ml 257.349 ml Intake Oral 400 ml IV Total 258.660 ml 257.349 ml Output Urine Total 300 ml # Voids 4 # Bowel Movements 1 Harry Corona MD Sep 24, 2019 21:12
--- NOTE | 2019-09-24 21:57 | NUR ---
NURSE NOTES: Called Dr. Bach and left message regarding pt requesting MD to order Seroquel 150mg Hs. Dr. Virk called back and ordered Seroquel 150mg QHS noted and carried out. patient and charge nurse made aware.
--- NOTE | 2019-09-24 21:58 | General Progress Note ---
Assessment/Plan Problem List: (1) Pulmonary embolism ICD Codes: I26.99 - Other pulmonary embolism without acute cor pulmonale SNOMED: 34970104 Status: progressing Assessment/Plan: afebrile pulmonary embolism elevate trop no cp no sob consulted psych dr funez Subjective ROS Limited/Unobtainable: Yes Allergies: Coded Allergies: No Known Allergies (Unverified , 09/22/19) Objective Last 24 Hour Vital Signs Date Time Temp Pulse Resp B/P (MAP) Pulse Ox O2 Delivery O2 Flow Rate FiO2 09/24/19 21:37 94 Nasal Cannula 3.0 32 09/24/19 20:00 98.8 98 19 132/80 (97) 98 09/24/19 20:00 92 18 98 Nasal Cannula 3.0 32 86 18 95 09/24/19 20:00 Nasal Cannula 3.0 09/24/19 16:00 Nasal Cannula 3.0 09/24/19 16:00 97.2 98 20 111/84 (93) 96 09/24/19 15:22 101 09/24/19 15:11 90 16 99 Nasal Cannula 3.0 32 85 18 96 09/24/19 14:35 89 133/82 09/24/19 12:00 97.9 89 20 133/82 (99) 94 09/24/19 12:00 Nasal Cannula 3.0 09/24/19 11:48 90 09/24/19 11:02 80 16 97 Nasal Cannula 3.0 32 71 18 94 09/24/19 08:00 Nasal Cannula 3.0 09/24/19 08:00 98.4 92 20 113/77 (89) 93 09/24/19 07:55 92 09/24/19 07:13 81 16 99 Nasal Cannula 3.0 32 75 18 95 09/24/19 06:42 98.3 09/24/19 05:58 93 110/89 09/24/19 04:00 Nasal Cannula 3.0 09/24/19 04:00 88 09/24/19 04:00 93 09/24/19 03:04 82 16 99 Nasal Cannula 3.0 32 79 16 96 09/24/19 00:00 90 09/24/19 00:00 Nasal Cannula 3.0 09/23/19 22:46 87 16 99 Nasal Cannula 3.0 32 84 16 96 2/2/20 22:32 88 110/89 Intake and Output 09/23/19 09/24/19 19:00 07:00 Intake Total 658.660 ml 257.349 ml Output Total 300 ml Balance 358.660 ml 257.349 ml Intake Oral 400 ml IV Total 258.660 ml 257.349 ml Output Urine Total 300 ml # Voids 4 # Bowel Movements 1 Laboratory Tests 09/24/19 04:20: White Blood Count 8.3, Red Blood Count 3.48L, Hemoglobin 11.7L, Hematocrit 34.1L , Mean Corpuscular Volume 98, Mean Corpuscular Hemoglobin 33.7H, Mean Corpuscular Hemoglobin Concent 34.3, Red Cell Distribution Width 11.9, Platelet Count 186, Mean Platelet Volume 8.8, Neutrophils (%) (Auto) , Lymphocytes (%) ( Auto) , Monocytes (%) (Auto) , Eosinophils (%) (Auto) , Basophils (%) (Auto) , Differential Total Cells Counted 100, Neutrophils % (Manual) 94H, Lymphocytes % (Manual) 4L, Monocytes % (Manual) 2, Eosinophils % (Manual) 0, Basophils % ( Manual) 0, Band Neutrophils 0, Platelet Estimate Adequate, Platelet Morphology Normal, Red Blood Cell Morphology Normal, Activated Partial Thromboplast Time 46H, Sodium Level 136, Potassium Level 4.0, Chloride Level 102, Carbon Dioxide Level 25, Anion Gap 9, Blood Urea Nitrogen 15, Creatinine 1.0, Estimat Glomerular Filtration Rate > 60, Glucose Level 183H, Calcium Level 8.9 09/24/19 12:00: Activated Partial Thromboplast Time 88H Height (Feet): 5 Height (Inches): 4.00 Weight (Pounds): 107 Neck: supple Cardiovascular: normal rate Respiratory/Chest: lungs clear Cash Bach MD Sep 24, 2019 21:58
--- NOTE | 2019-09-24 23:52 | Cardiology Progress Note ---
Assessment/Plan Assessment/Plan 1. Dyspnea due to bilateral small pulmonary emboli, continue heparin drip. 2D echocardiography shows no signs of RV strain, LVEF normal at 55%. May switich to Elquis 10mg po bid for a week and then 5mg BID for 3-6 months at the time of DC home. 2. Slight elevation of troponin I level is likely due to PE, no ECG changes of ischemia is evident. 3. History of asthma. Pulmonary followup. 4. Positive cocaine in the urine. Increase Diltiazem. Subjective Subjective Sinus rhythm at rate of 98. Objective Last 24 Hour Vital Signs Date Time Temp Pulse Resp B/P (MAP) Pulse Ox O2 Delivery O2 Flow Rate FiO2 09/24/19 22:34 98.8 09/24/19 22:03 98 132/80 09/24/19 21:37 94 Nasal Cannula 3.0 32 09/24/19 20:00 103 09/24/19 20:00 98.8 98 19 132/80 (97) 98 09/24/19 20:00 92 18 98 Nasal Cannula 3.0 32 86 18 95 09/24/19 20:00 Nasal Cannula 3.0 09/24/19 16:00 Nasal Cannula 3.0 09/24/19 16:00 97.2 98 20 111/84 (93) 96 09/24/19 15:22 101 09/24/19 15:11 90 16 99 Nasal Cannula 3.0 32 85 18 96 09/24/19 14:35 89 133/82 09/24/19 12:00 97.9 89 20 133/82 (99) 94 09/24/19 12:00 Nasal Cannula 3.0 09/24/19 11:48 90 09/24/19 11:02 80 16 97 Nasal Cannula 3.0 32 71 18 94 09/24/19 08:00 Nasal Cannula 3.0 09/24/19 08:00 98.4 92 20 113/77 (89) 93 09/24/19 07:55 92 09/24/19 07:13 81 16 99 Nasal Cannula 3.0 32 75 18 95 09/24/19 05:58 93 110/89 09/24/19 04:00 Nasal Cannula 3.0 09/24/19 04:00 88 09/24/19 04:00 93 09/24/19 03:04 82 16 99 Nasal Cannula 3.0 32 79 16 96 09/24/19 00:00 90 09/24/19 00:00 Nasal Cannula 3.0 Intake and Output 09/23/19 09/24/19 19:00 07:00 Intake Total 658.660 ml 257.349 ml Output Total 300 ml Balance 358.660 ml 257.349 ml Intake Oral 400 ml IV Total 258.660 ml 257.349 ml Output Urine Total 300 ml # Voids 4 # Bowel Movements 1 2D Echo: LVEF 55%, Mild LVH, RVSP 31 mmHg, Normal RV size w/ no strain, Grade I LVDD Laboratory Tests Test 09/24/19 04:20 09/24/19 12:00 White Blood Count 8.3 K/UL (4.8-10.8) Red Blood Count 3.48 M/UL (4.20-5.40) L Hemoglobin 11.7 G/DL (12.0-16.0) L Hematocrit 34.1 % (37.0-47.0) L Mean Corpuscular Volume 98 FL (80-99) Mean Corpuscular Hemoglobin 33.7 PG (27.0-31.0) H Mean Corpuscular Hemoglobin Concent 34.3 G/DL (32.0-36.0) Red Cell Distribution Width 11.9 % (11.6-14.8) Platelet Count 186 K/UL (150-450) Mean Platelet Volume 8.8 FL (6.5-10.1) Neutrophils (%) (Auto) % (45.0-75.0) Lymphocytes (%) (Auto) % (20.0-45.0) Monocytes (%) (Auto) % (1.0-10.0) Eosinophils (%) (Auto) % (0.0-3.0) Basophils (%) (Auto) % (0.0-2.0) Differential Total Cells Counted 100 Neutrophils % (Manual) 94 % (45-75) H Lymphocytes % (Manual) 4 % (20-45) L Monocytes % (Manual) 2 % (1-10) Eosinophils % (Manual) 0 % (0-3) Basophils % (Manual) 0 % (0-2) Band Neutrophils 0 % (0-8) Platelet Estimate Adequate Platelet Morphology Normal Red Blood Cell Morphology Normal Activated Partial Thromboplast Time 46 SEC (23-33) H 88 SEC (23-33) H Sodium Level 136 MMOL/L (136-145) Potassium Level 4.0 MMOL/L (3.5-5.1) Chloride Level 102 MMOL/L (98-107) Carbon Dioxide Level 25 MMOL/L (21-32) Anion Gap 9 mmol/L (5-15) Blood Urea Nitrogen 15 mg/dL (7-18) Creatinine 1.0 MG/DL (0.55-1.30) Estimat Glomerular Filtration Rate > 60 mL/min (>60) Glucose Level 183 MG/DL (74-106) H Calcium Level 8.9 MG/DL (8.5-10.1) Microbiology Date/Time Source Procedure Growth Status 09/22/19 21:00 Rectum Received Objective HEENT: Somewhat agitated. Atraumatic and normocephalic. Anicteric. Pupils are equal, round, and reactive to light and accommodation. Extraocular muscles intact. NECK: JVP less than 5 cm. No carotid bruit. Carotid upstrokes 2+ bilaterally. CARDIOVASCULAR: Normal S1 and S2. Tachycardic. A 2/6 mid systolic murmur at the xiphoid area with RVS3. LUNGS: Diminished breath sounds in both lungs. ABDOMEN: Soft, nontender, and nondistended. No hepatosplenomegaly. Positive bowel sounds. EXTREMITIES: No evidence of edema, clubbing, or cyanosis. Dayron Tate MD Sep 24, 2019 23:52
[2019-09-25] VITALS: BP 140/92
[2019-09-25] MEDS: Albuterol/Ipratropium 3ml neb HHN SCH ×6 (00:40→22:54)
[2019-09-25] MEDS: Hydromorphone 0.5mg/0.5ml inj IVP PRN (02:26)
[2019-09-25 04:00] VITALS: BP 105/62
[2019-09-25] MEDS ORDERED: Albuterol/Ipratropium 3ml neb ONE (04:06)
[2019-09-25 04:18] LABS: HEMATOCRIT 34.6 % (37.0-47.0); HEMOGLOBIN 12.2 G/DL (12.0-16.0); MEAN CORPUSCULAR VOLUME 97 FL (80-99); PLATELET COUNT 199 K/UL (150-450); RED BLOOD COUNT 3.55 M/UL (4.20-5.40); RED CELL DISTRIBUTION WIDTH 11.9 % (11.6-14.8); WHITE BLOOD COUNT 13.6 K/UL (4.8-10.8)
[2019-09-25 04:26] LABS: ANION GAP 10 mmol/L (5-15); BLOOD UREA NITROGEN 18 mg/dL (7-18); CALCIUM 9.1 MG/DL (8.5-10.1); CARBON DIOXIDE 26 MMOL/L (21-32); CHLORIDE 103 MMOL/L (98-107); CREATININE 1.1 MG/DL (0.55-1.30); POTASSIUM 4.4 MMOL/L (3.5-5.1); SODIUM 139 MMOL/L (136-145)
--- NOTE | 2019-09-25 04:58 | NUR ---
NURSE NOTES: Spoke with pipeline Pharmacist PTT 68 will continue the same dose and Timed PTT in am noted.
[2019-09-25] MEDS: dilTIAZem HCl 30mg tab ORAL SCH ×3 (05:12→22:27)
--- NOTE | 2019-09-25 07:10 | NUR ---
HAND-OFF: Report given to Jayshree STRICKLAND.
--- NOTE | 2019-09-25 07:10 | NUR ---
NURSE NOTES: Received pt, A/Ox4; able to make needs known. Tolerated breakfast meal well. 3LNC, spo2 100%. No signs of resp distress noted. SR on radiation monitor. Heparin gtt discontinued per Dr. Bates. Patient is now on eliquis. RAC 20G and LAC 22G patent asymptomatic. No signs of distress noted. Bed locked alarmed and in lowest position. Will continue plan of care.
--- NOTE | 2019-09-25 07:13 | Hematology/Onc Progress Note ---
Assessment/Plan Assessment/Plan Assessment and Recs: # Bilateral Pulmonary embolism - noted on imaging --> consider to continue on heparin gtt--> now changed to eliquis --> hypercoag w/u as needed prn basis --> may be related to recent drug use as well --> recommend 3-6 mo of anticoagulation --> dw cards # Coagulopathy --> may be due to heparin gtt # Shortness of breath --> prn breathing treatments # Asthma --> as per pulm # Hypertension --> as per cards # Dvt ppx with jonny Mcwilliams Rn and appreciate consultation. Subjective HEENT: Denies: no symptoms, eye pain, blurred vision, tearing, double vision, ear pain, ear discharge, nose pain, nose congestion, throat pain, throat swelling, mouth pain, mouth swelling, other Cardiovascular: Denies: no symptoms, chest pain, edema, irregular heart rate, lightheadedness, palpitations, syncope, other Gastrointestinal/Abdominal: Denies: no symptoms, abdomen distended, abdominal pain, black stools, tarry stools, blood in stool, constipated, diarrhea, difficulty swallowing, nausea, poor appetite, poor fluid intake, rectal bleeding , vomiting, other Genitourinary: Denies: no symptoms, burning, discharge, frequency, flank pain, hematuria, incontinence, pain, urgency, other Neurologic/Psychiatric: Denies: no symptoms, anxiety, depressed, emotional problems, headache, numbness, paresthesia, pre-existing deficit, seizure, tingling, tremors, weakness, other Endocrine: Denies: no symptoms, excessive sweating, flushing, intolerance to cold, intolerance to heat, increased hunger, increased thirst, increased urine, unexplained weight gain, unexplained weight loss, other Hematologic/Lymphatic: Denies: no symptoms, anemia, easy bleeding, easy bruising, adenopathy, other Allergies: Coded Allergies: No Known Allergies (Unverified , 09/22/19) Subjective 2/3: no bleeding, no f/c, no night sweats, no major events 24: ok to change heparin gtt to eliquis, will do at this time, cards recs noted Objective Objective Current Medications Medications (Trade) Dose Ordered Sig/Edil Route PRN Reason Start Time Stop Time Status Last Admin Dose Admin Acetaminophen (Tylenol) 650 mg Q6H PRN ORAL Mild Pain/Temp > 100.5 09/22/19 23:15 10/22/19 23:14 Acetaminophen/ Hydrocodone Bitart ([place] 5/325) 1 tab Q6H PRN ORAL For Pain 09/22/19 23:15 09/29/19 23:14 09/24/19 22:04 Albuterol/ Ipratropium (Albuterol/ Ipratropium) 3 ml Q4HRT HHN 09/23/19 03:00 09/27/19 23:14 09/25/19 04:10 Dextrose (Dextrose 50%) 25 ml Q30M PRN IV Hypoglycemia 09/22/19 23:15 10/22/19 23:14 Dextrose (Dextrose 50%) 50 ml Q30M PRN IV Hypoglycemia 09/22/19 23:15 10/22/19 23:14 Diltiazem HCl (Cardizem) 30 mg EVERY 8 HOURS ORAL 09/22/19 22:00 10/22/19 21:59 09/25/19 05:12 Doxycycline Monohydrate (Doxycycline Monohydrate) 100 mg EVERY 12 HOURS ORAL 09/23/19 09:00 09/30/19 08:59 09/24/19 22:03 Guaifenesin (Robitussin) 100 mg EVERY 6 HOURS PRN ORAL For Cough 09/22/19 23:15 10/22/19 23:14 09/24/19 06:11 Heparin Sodium/ Dextrose 500 ml @ 25.474 mls/ hr ADJUST PER PROTOCOL IV 09/24/19 06:00 10/24/19 05:59 09/24/19 18:16 Hydromorphone HCl (Dilaudid) 0.5 mg Q3HR PRN IVP Pain Scale (6-10) 09/22/19 23:15 09/29/19 23:14 09/25/19 02:26 Methylprednisolone Sodium Succinate (Solu-MEDROL) 30 mg Q12HR IVP 09/25/19 09:00 10/23/19 05:59 Pantoprazole (Protonix) 40 mg DAILY ORAL 09/23/19 09:00 10/23/19 08:59 09/24/19 08:30 Quetiapine Fumarate (SEROqueL) 150 mg QHS ORAL 09/24/19 21:57 10/24/19 21:56 09/24/19 22:07 Last 24 Hour Vital Signs Date Time Temp Pulse Resp B/P (MAP) Pulse Ox O2 Delivery O2 Flow Rate FiO2 09/25/19 05:12 89 105/62 09/25/19 04:00 89 09/25/19 04:00 Nasal Cannula 3.0 09/25/19 04:00 88 18 95 Nasal Cannula 3.0 32 82 18 93 09/25/19 04:00 97.7 96 19 105/62 (76) 99 09/25/19 02:56 98.0 09/25/19 00:00 94 09/25/19 00:00 105 18 96 Nasal Cannula 3.0 32 101 18 94 09/25/19 00:00 98.0 94 19 140/92 (108) 96 09/25/19 00:00 Nasal Cannula 3.0 09/24/19 22:34 98.8 09/24/19 22:03 98 132/80 09/24/19 21:37 94 Nasal Cannula 3.0 32 09/24/19 20:00 103 09/24/19 20:00 98.8 98 19 132/80 (97) 98 09/24/19 20:00 92 18 98 Nasal Cannula 3.0 32 86 18 95 09/24/19 20:00 Nasal Cannula 3.0 09/24/19 16:00 Nasal Cannula 3.0 09/24/19 16:00 97.2 98 20 111/84 (93) 96 09/24/19 15:22 101 09/24/19 15:11 90 16 99 Nasal Cannula 3.0 32 85 18 96 09/24/19 14:35 89 133/82 09/24/19 12:00 97.9 89 20 133/82 (99) 94 09/24/19 12:00 Nasal Cannula 3.0 09/24/19 11:48 90 09/24/19 11:02 80 16 97 Nasal Cannula 3.0 32 71 18 94 09/24/19 08:00 Nasal Cannula 3.0 09/24/19 08:00 98.4 92 20 113/77 (89) 93 09/24/19 07:55 92 09/24/19 07:13 81 16 99 Nasal Cannula 3.0 32 75 18 95 09/24/19 05:58 93 110/89 09/24/19 04:00 Nasal Cannula 3.0 09/24/19 04:00 88 09/24/19 04:00 93 09/24/19 03:04 82 16 99 Nasal Cannula 3.0 32 79 16 96 09/24/19 00:00 90 09/24/19 00:00 Nasal Cannula 3.0 09/23/19 22:46 87 16 99 Nasal Cannula 3.0 32 84 16 96 09/23/19 22:32 88 110/89 09/23/19 20:00 89 09/23/19 20:00 Nasal Cannula 3.0 09/23/19 19:44 88 16 97 Nasal Cannula 3.0 32 89 16 94 09/23/19 17:10 87 09/23/19 16:00 Nasal Cannula 3.0 09/23/19 15:33 84 14 99 Nasal Cannula 3.0 32 75 12 96 09/23/19 14:00 90 21 110/89 (96) 98 09/23/19 13:52 80 110/66 09/23/19 12:00 81 22 119/86 (97) 98 09/23/19 12:00 Nasal Cannula 3.0 09/23/19 11:56 78 09/23/19 11:46 84 16 98 Nasal Cannula 3.0 32 81 14 97 09/23/19 11:00 80 24 113/81 (92) 98 09/23/19 10:00 76 22 128/92 (104) 97 09/23/19 09:00 70 16 117/87 (97) 97 09/23/19 08:00 Nasal Cannula 3.0 09/23/19 08:00 98.3 73 18 128/79 (95) 98 09/23/19 08:00 77 Intake and Output 09/24/19 09/25/19 19:00 07:00 Intake Total 898.894 ml 730.214 ml Output Total 1000 ml Balance 898.894 ml -269.786 ml Intake Oral 600 ml 450 ml IV Total 298.894 ml 280.214 ml Output Urine Total 1000 ml # Voids 3 5 # Bowel Movements 2 Labs Test 09/22/19 16:11 09/22/19 16:30 09/22/19 17:09 09/23/19 06:05 White Blood Count 7.0 K/UL (4.8-10.8) 6.7 K/UL (4.8-10.8) Red Blood Count 3.91 M/UL (4.20-5.40) 3.79 M/UL (4.20-5.40) Hemoglobin 12.7 G/DL (12.0-16.0) 12.8 G/DL (12.0-16.0) Hematocrit 40.8 % (37.0-47.0) 37.4 % (37.0-47.0) Mean Corpuscular Volume 105 FL (80-99) 99 FL (80-99) Mean Corpuscular Hemoglobin 32.5 PG (27.0-31.0) 33.8 PG (27.0-31.0) Mean Corpuscular Hemoglobin Concent 31.1 G/DL (32.0-36.0) 34.2 G/DL (32.0-36.0) Red Cell Distribution Width 12.5 % (11.6-14.8) 12.1 % (11.6-14.8) Platelet Count 195 K/UL (150-450) 190 K/UL (150-450) Mean Platelet Volume 9.6 FL (6.5-10.1) 8.6 FL (6.5-10.1) Neutrophils (%) (Auto) 53.1 % (45.0-75.0) 37.8 % (45.0-75.0) Lymphocytes (%) (Auto) 33.5 % (20.0-45.0) 43.7 % (20.0-45.0) Monocytes (%) (Auto) 6.1 % (1.0-10.0) 7.0 % (1.0-10.0) Eosinophils (%) (Auto) 4.9 % (0.0-3.0) 9.7 % (0.0-3.0) Basophils (%) (Auto) 2.4 % (0.0-2.0) 1.8 % (0.0-2.0) Sodium Level 139 MMOL/L (136-145) 139 MMOL/L (136-145) Potassium Level 4.0 MMOL/L (3.5-5.1) 3.9 MMOL/L (3.5-5.1) Chloride Level 105 MMOL/L (98-107) 105 MMOL/L (98-107) Carbon Dioxide Level 24 MMOL/L (21-32) 25 MMOL/L (21-32) Anion Gap 10 mmol/L (5-15) 9 mmol/L (5-15) Blood Urea Nitrogen 18 mg/dL (7-18) 17 mg/dL (7-18) Creatinine 1.2 MG/DL (0.55-1.30) 1.1 MG/DL (0.55-1.30) Estimat Glomerular Filtration Rate 45.3 mL/min (>60) > 60 mL/min (>60) Glucose Level 84 MG/DL (74-106) 116 MG/DL (74-106) Calcium Level 8.8 MG/DL (8.5-10.1) 8.2 MG/DL (8.5-10.1) Total Bilirubin 0.4 MG/DL (0.2-1.0) Aspartate Amino Transf (AST/SGOT) 26 U/L (15-37) Alanine Aminotransferase (ALT/SGPT) 22 U/L (12-78) Alkaline Phosphatase 59 U/L (46-116) Total Creatine Kinase 314 U/L (26-308) Troponin I 0.271 ng/mL (0.000-0.056) 0.067 ng/mL (0.000-0.056) Pro-B-Type Natriuretic Peptide 273 pg/mL (0-125) Total Protein 7.8 G/DL (6.4-8.2) Albumin 3.9 G/DL (3.4-5.0) Globulin 3.9 g/dL Albumin/Globulin Ratio 1.0 (1.0-2.7) Lipase 172 U/L (73-393) Activated Partial Thromboplast Time 25 SEC (23-33) 42 SEC (23-33) Urine Opiates Screen Positive (NEGATIVE) Urine Barbiturates Screen Negative (NEGATIVE) Phencyclidine (PCP) Screen Negative (NEGATIVE) Urine Amphetamines Screen Negative (NEGATIVE) Urine Benzodiazepines Screen Negative (NEGATIVE) Urine Cocaine Screen Positive (NEGATIVE) Urine Marijuana (THC) Screen Negative (NEGATIVE) Prothrombin Time 10.4 SEC (9.30-11.50) Prothromb Time International Ratio 1.0 (0.9-1.1) Test 09/23/19 13:15 09/24/19 04:20 09/24/19 12:00 09/25/19 04:10 Activated Partial Thromboplast Time 93 SEC (23-33) 46 SEC (23-33) 88 SEC (23-33) 68 SEC (23-33) White Blood Count 8.3 K/UL (4.8-10.8) 13.6 K/UL (4.8-10.8) Red Blood Count 3.48 M/UL (4.20-5.40) 3.55 M/UL (4.20-5.40) Hemoglobin 11.7 G/DL (12.0-16.0) 12.2 G/DL (12.0-16.0) Hematocrit 34.1 % (37.0-47.0) 34.6 % (37.0-47.0) Mean Corpuscular Volume 98 FL (80-99) 97 FL (80-99) Mean Corpuscular Hemoglobin 33.7 PG (27.0-31.0) 34.3 PG (27.0-31.0) Mean Corpuscular Hemoglobin Concent 34.3 G/DL (32.0-36.0) 35.2 G/DL (32.0-36.0) Red Cell Distribution Width 11.9 % (11.6-14.8) 11.9 % (11.6-14.8) Platelet Count 186 K/UL (150-450) 199 K/UL (150-450) Mean Platelet Volume 8.8 FL (6.5-10.1) 8.2 FL (6.5-10.1) Neutrophils (%) (Auto) % (45.0-75.0) % (45.0-75.0) Lymphocytes (%) (Auto) % (20.0-45.0) % (20.0-45.0) Monocytes (%) (Auto) % (1.0-10.0) % (1.0-10.0) Eosinophils (%) (Auto) % (0.0-3.0) % (0.0-3.0) Basophils (%) (Auto) % (0.0-2.0) % (0.0-2.0) Differential Total Cells Counted 100 Neutrophils % (Manual) 94 % (45-75) Lymphocytes % (Manual) 4 % (20-45) Monocytes % (Manual) 2 % (1-10) Eosinophils % (Manual) 0 % (0-3) Basophils % (Manual) 0 % (0-2) Band Neutrophils 0 % (0-8) Platelet Estimate Adequate Platelet Morphology Normal Red Blood Cell Morphology Normal Sodium Level 136 MMOL/L (136-145) 139 MMOL/L (136-145) Potassium Level 4.0 MMOL/L (3.5-5.1) 4.4 MMOL/L (3.5-5.1) Chloride Level 102 MMOL/L (98-107) 103 MMOL/L (98-107) Carbon Dioxide Level 25 MMOL/L (21-32) 26 MMOL/L (21-32) Anion Gap 9 mmol/L (5-15) 10 mmol/L (5-15) Blood Urea Nitrogen 15 mg/dL (7-18) 18 mg/dL (7-18) Creatinine 1.0 MG/DL (0.55-1.30) 1.1 MG/DL (0.55-1.30) Estimat Glomerular Filtration Rate > 60 mL/min (>60) > 60 mL/min (>60) Glucose Level 183 MG/DL (74-106) 167 MG/DL (74-106) Calcium Level 8.9 MG/DL (8.5-10.1) 9.1 MG/DL (8.5-10.1) Height (Feet): 5 Height (Inches): 4.00 Weight (Pounds): 107 Objective Physical Exam General: well appearing, nad HEENT: full range of motion, supple, no meningismus Resp: no respiratory distress, no retraction, no accessory muscle use CV: normal peripheral pulses, regular rate, rhythm GI: normal bowel sounds, non tender, soft, no mass : no CVA tenderness MSK: subjectively complains of left arm pain Neurologic: motor strength/tone normal, responsive Jose Bates MD Sep 25, 2019 07:13
[2019-09-25 08:00] VITALS: BP 112/79
[2019-09-25] MEDS: Doxycycline Monohydrate 100mg ORAL SCH ×2 (08:53→21:08)
[2019-09-25] MEDS ORDERED: Eliquis 5mg tablet ORAL SCH (09:00)
[2019-09-25] MEDS ORDERED: Solu-MEDROL 40mg Inj IVP SCH ×2 (09:00→21:00)
--- NOTE | 2019-09-25 09:06 | General Progress Note ---
Assessment/Plan Assessment/Plan: (1) Chest pain (2) Pulmonary embolism (3) Cocaine abuse Patient to be continued on [place] and Dilaudid D/w Dr Frost and he concurred. Subjective Date patient seen: Sep 25, 2019 Time patient seen: 08:45 - am Constitutional: Reports: no symptoms HEENT: Reports: no symptoms Cardiovascular: Reports: no symptoms Respiratory: Reports: no symptoms Gastrointestinal/Abdominal: Reports: no symptoms Genitourinary: Reports: no symptoms Neurologic/Psychiatric: Reports: no symptoms Endocrine: Reports: no symptoms Hematologic/Lymphatic: Reports: no symptoms Allergies: Coded Allergies: No Known Allergies (Unverified , 09/22/19) Subjective Patient is in bed and pain is moderate tolerated on Dilaudid and [place]. No new complaints at this time. Objective Last 24 Hour Vital Signs Date Time Temp Pulse Resp B/P (MAP) Pulse Ox O2 Delivery O2 Flow Rate FiO2 09/25/19 07:21 97 22 98 Nasal Cannula 3.0 32 77 20 96 09/25/19 07:18 96 Nasal Cannula 3.0 32 09/25/19 05:12 89 105/62 09/25/19 04:00 89 09/25/19 04:00 Nasal Cannula 3.0 09/25/19 04:00 88 18 95 Nasal Cannula 3.0 32 82 18 93 09/25/19 04:00 97.7 96 19 105/62 (76) 99 09/25/19 02:56 98.0 09/25/19 00:00 94 09/25/19 00:00 105 18 96 Nasal Cannula 3.0 32 101 18 94 09/25/19 00:00 98.0 94 19 140/92 (108) 96 09/25/19 00:00 Nasal Cannula 3.0 09/24/19 22:34 98.8 09/24/19 22:03 98 132/80 09/24/19 21:37 94 Nasal Cannula 3.0 32 09/24/19 20:00 103 09/24/19 20:00 98.8 98 19 132/80 (97) 98 09/24/19 20:00 92 18 98 Nasal Cannula 3.0 32 86 18 95 09/24/19 20:00 Nasal Cannula 3.0 09/24/19 16:00 Nasal Cannula 3.0 09/24/19 16:00 97.2 98 20 111/84 (93) 96 09/24/19 15:22 101 09/24/19 15:11 90 16 99 Nasal Cannula 3.0 32 85 18 96 09/24/19 14:35 89 133/82 09/24/19 12:00 97.9 89 20 133/82 (99) 94 09/24/19 12:00 Nasal Cannula 3.0 09/24/19 11:48 90 09/24/19 11:02 80 16 97 Nasal Cannula 3.0 32 71 18 94 Intake and Output 09/24/19 09/25/19 19:00 07:00 Intake Total 898.894 ml 755.688 ml Output Total 1000 ml Balance 898.894 ml -244.312 ml Intake Oral 600 ml 450 ml IV Total 298.894 ml 305.688 ml Output Urine Total 1000 ml # Voids 3 5 # Bowel Movements 2 Laboratory Tests 09/24/19 12:00: Activated Partial Thromboplast Time 88H 09/25/19 04:10: Activated Partial Thromboplast Time 68H, White Blood Count 13.6#H, Red Blood Count 3.55L, Hemoglobin 12.2, Hematocrit 34.6L, Mean Corpuscular Volume 97, Mean Corpuscular Hemoglobin 34.3H, Mean Corpuscular Hemoglobin Concent 35.2, Red Cell Distribution Width 11.9, Platelet Count 199, Mean Platelet Volume 8.2, Neutrophils (%) (Auto) , Lymphocytes (%) (Auto) , Monocytes (%) (Auto) , Eosinophils (%) (Auto) , Basophils (%) (Auto) , Sodium Level 139, Potassium Level 4.4, Chloride Level 103, Carbon Dioxide Level 26, Anion Gap 10, Blood Urea Nitrogen 18, Creatinine 1.1, Estimat Glomerular Filtration Rate > 60, Glucose Level 167H, Calcium Level 9.1 Height (Feet): 5 Height (Inches): 4.00 Weight (Pounds): 107 General Appearance: no apparent distress, alert EENT: PERRL/EOMI Neck: non-tender, normal alignment Cardiovascular: normal rate, regular rhythm Respiratory/Chest: decreased breath sounds Abdomen: non tender, soft Extremities: non-tender Edema: no edema noted Generalized Neurologic: alert, oriented x 3 Skin: warm/dry Ronen Posadas Sep 25, 2019 09:06
--- NOTE | 2019-09-25 09:25 | Infectious Diseases Prog Note ---
Assessment/Plan Assessment/Plan IMPRESSION: Pulmonary emboli. Asthma attack, has Emphysema, Hypertension, Scoliosis, Cocaine and opiate abuse. Leukocytosis, may be steroid related RECOMMENDATION: We will continue with current treatment with doxycycline, bronchodilator,heparin and methylprednisone. Subjective ROS Limited/Unobtainable: Yes Constitutional: Denies: fever Allergies: Coded Allergies: No Known Allergies (Unverified , 09/22/19) Objective Vital Signs Last 24 Hour Vital Signs Date Time Temp Pulse Resp B/P (MAP) Pulse Ox O2 Delivery O2 Flow Rate FiO2 09/25/19 07:21 97 22 98 Nasal Cannula 3.0 32 77 20 96 09/25/19 07:18 96 Nasal Cannula 3.0 32 09/25/19 05:12 89 105/62 09/25/19 04:00 89 09/25/19 04:00 Nasal Cannula 3.0 09/25/19 04:00 88 18 95 Nasal Cannula 3.0 32 82 18 93 09/25/19 04:00 97.7 96 19 105/62 (76) 99 09/25/19 02:56 98.0 09/25/19 00:00 94 09/25/19 00:00 105 18 96 Nasal Cannula 3.0 32 101 18 94 09/25/19 00:00 98.0 94 19 140/92 (108) 96 09/25/19 00:00 Nasal Cannula 3.0 09/24/19 22:34 98.8 09/24/19 22:03 98 132/80 09/24/19 21:37 94 Nasal Cannula 3.0 32 09/24/19 20:00 103 09/24/19 20:00 98.8 98 19 132/80 (97) 98 09/24/19 20:00 92 18 98 Nasal Cannula 3.0 32 86 18 95 09/24/19 20:00 Nasal Cannula 3.0 09/24/19 16:00 Nasal Cannula 3.0 09/24/19 16:00 97.2 98 20 111/84 (93) 96 09/24/19 15:22 101 09/24/19 15:11 90 16 99 Nasal Cannula 3.0 32 85 18 96 09/24/19 14:35 89 133/82 09/24/19 12:00 97.9 89 20 133/82 (99) 94 09/24/19 12:00 Nasal Cannula 3.0 09/24/19 11:48 90 09/24/19 11:02 80 16 97 Nasal Cannula 3.0 32 71 18 94 Height (Feet): 5 Height (Inches): 4.00 Weight (Pounds): 107 General Appearance: no acute distress HEENT: mucous membranes moist Respiratory/Chest: lungs clear, other - oxygen by nasal cannula Cardiovascular: normal rate Abdomen: soft, non tender Extremities: no edema Neurologic/Psychiatric: other - sleeping Microbiology Date/Time Source Procedure Growth Status 09/22/19 21:00 Nasal Nares MRSA Culture - Final NO METHICILLIN RESISTANT STAPH AUREUS... Complete 09/22/19 21:00 Rectum - Final NO CARBAPENEM-RESISTANT ENTEROBACTERI... Complete 09/22/19 21:00 Rectum VRE Culture - Final NO VANCOMYCIN RESISTANT ENTEROCOCCUS ... Complete Laboratory Tests Test 09/24/19 12:00 09/25/19 04:10 Activated Partial Thromboplast Time 88 SEC (23-33) H 68 SEC (23-33) H White Blood Count 13.6 K/UL (4.8-10.8) #H Red Blood Count 3.55 M/UL (4.20-5.40) L Hemoglobin 12.2 G/DL (12.0-16.0) Hematocrit 34.6 % (37.0-47.0) L Mean Corpuscular Volume 97 FL (80-99) Mean Corpuscular Hemoglobin 34.3 PG (27.0-31.0) H Mean Corpuscular Hemoglobin Concent 35.2 G/DL (32.0-36.0) Red Cell Distribution Width 11.9 % (11.6-14.8) Platelet Count 199 K/UL (150-450) Mean Platelet Volume 8.2 FL (6.5-10.1) Neutrophils (%) (Auto) % (45.0-75.0) Lymphocytes (%) (Auto) % (20.0-45.0) Monocytes (%) (Auto) % (1.0-10.0) Eosinophils (%) (Auto) % (0.0-3.0) Basophils (%) (Auto) % (0.0-2.0) Sodium Level 139 MMOL/L (136-145) Potassium Level 4.4 MMOL/L (3.5-5.1) Chloride Level 103 MMOL/L (98-107) Carbon Dioxide Level 26 MMOL/L (21-32) Anion Gap 10 mmol/L (5-15) Blood Urea Nitrogen 18 mg/dL (7-18) Creatinine 1.1 MG/DL (0.55-1.30) Estimat Glomerular Filtration Rate > 60 mL/min (>60) Glucose Level 167 MG/DL (74-106) H Calcium Level 9.1 MG/DL (8.5-10.1) Current Medications Medications (Trade) Dose Ordered Sig/Edil Route PRN Reason Start Time Stop Time Status Last Admin Dose Admin Acetaminophen (Tylenol) 650 mg Q6H PRN ORAL Mild Pain/Temp > 100.5 09/22/19 23:15 10/22/19 23:14 Acetaminophen/ Hydrocodone Bitart (Horatio 5/325) 1 tab Q6H PRN ORAL For Pain 09/22/19 23:15 09/29/19 23:14 09/24/19 22:04 Albuterol/ Ipratropium (Albuterol/ Ipratropium) 3 ml Q4HRT HHN 09/23/19 03:00 09/27/19 23:14 09/25/19 07:18 Apixaban (Eliquis) 10 mg BID ORAL 09/25/19 09:00 10/25/19 08:59 09/25/19 08:53 Dextrose (Dextrose 50%) 25 ml Q30M PRN IV Hypoglycemia 09/22/19 23:15 10/22/19 23:14 Dextrose (Dextrose 50%) 50 ml Q30M PRN IV Hypoglycemia 09/22/19 23:15 10/22/19 23:14 Diltiazem HCl (Cardizem) 30 mg EVERY 8 HOURS ORAL 09/22/19 22:00 10/22/19 21:59 09/25/19 05:12 Doxycycline Monohydrate (Doxycycline Monohydrate) 100 mg EVERY 12 HOURS ORAL 09/23/19 09:00 09/30/19 08:59 09/25/19 08:53 Guaifenesin (Robitussin) 100 mg EVERY 6 HOURS PRN ORAL For Cough 09/22/19 23:15 10/22/19 23:14 09/24/19 06:11 Hydromorphone HCl (Dilaudid) 0.5 mg Q3HR PRN IVP Pain Scale (6-10) 09/22/19 23:15 09/29/19 23:14 09/25/19 02:26 Methylprednisolone Sodium Succinate (Solu-MEDROL) 30 mg Q12HR IVP 09/25/19 09:00 10/23/19 05:59 09/25/19 08:54 Pantoprazole (Protonix) 40 mg DAILY ORAL 09/23/19 09:00 10/23/19 08:59 09/25/19 08:53 Quetiapine Fumarate (SEROqueL) 150 mg QHS ORAL 09/24/19 21:57 10/24/19 21:56 09/24/19 22:07 Ghassan Garcia MD Sep 25, 2019 09:25
[2019-09-25 12:00] VITALS: BP 118/75
--- NOTE | 2019-09-25 12:06 | NUR ---
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 97.7 HR 82 RR 18 B/P 105/62 NC 3L 02 SAT @ 98% WBC 13.6 PTT 68 IS: SOLU MEDROL IV DOXYCYCLINE PO CARDIZEM PO STEP DOWN STATUS
[2019-09-25] MEDS ORDERED: guaiFENesin 100mg/5ml Liq ud ORAL PRN (15:07)
[2019-09-25] MEDS ORDERED: Hydromorphone 0.5mg/0.5ml inj IVP PRN (15:08)
--- NOTE | 2019-09-25 15:09 | NUR ---
TRANSFER TO FLOOR: Patient transferred to [facility], per Dr. Bach. Report given to EM Villasenor. Belongings list reviewed with receiving nurse. Family and or S/O informed of transfer. A/Ox4; steady gait.
--- NOTE | 2019-09-25 15:10 | NUR ---
NURSE NOTES: Patient transferred from [facility], received report from Jayshree/RN. Patient is awake lying semi-can's, resting comfortably. On 2L nasal canula, no acute distress/SOB noted. Breathing even and unlabored. Able to make needs known, denies pain at this time. IV on Left AC & Right AC, patent, no bleeding or infiltration noted. Belonging check done with transferring nurse. Bed in low position and locked, Bed alarm engaged, side rails up x3. Call light within reach, Encouraged to use call light when needed. Will continue plan of care.
[2019-09-25 16:00] VITALS: BP 134/88
[2019-09-25] MEDS: Eliquis 5mg tablet ORAL SCH (18:12)
--- NOTE | 2019-09-25 19:41 | NUR ---
HAND-OFF: Report given to Miriam/EM, Patient is in stable condition. Endorsed plan of care..
--- NOTE | 2019-09-25 19:50 | NUR ---
NURSE NOTES: Received report from Jacklyn Gordon RN. Pt in stable condition, alert,oriented x 4, denies pain at this time. Pt is SR, VS WNL. Will continue to monitor and plan of care.
[2019-09-25 20:00] VITALS: BP_SYST 111; BP_SYST 136; BP_DIAS 70; BP_DIAS 84
--- NOTE | 2019-09-25 21:28 | General Progress Note ---
Assessment/Plan Problem List: (1) Pulmonary embolism ICD Codes: I26.99 - Other pulmonary embolism without acute cor pulmonale SNOMED: 24661169 Status: progressing Assessment/Plan: pulmonary embolism elevate trop recheck trop anticoagulant per heme/onc moniter for bleeding Subjective ROS Limited/Unobtainable: Yes Allergies: Coded Allergies: No Known Allergies (Unverified , 09/22/19) Objective Last 24 Hour Vital Signs Date Time Temp Pulse Resp B/P (MAP) Pulse Ox O2 Delivery O2 Flow Rate FiO2 09/25/19 20:10 98 Nasal Cannula 3.0 32 09/25/19 20:00 78 20 99 Nasal Cannula 3.0 32 73 20 98 09/25/19 16:00 96.6 75 18 134/88 (103) 95 09/25/19 16:00 Nasal Cannula 3.0 09/25/19 16:00 90 09/25/19 15:15 75 22 99 Nasal Cannula 3.0 32 09/25/19 13:11 83 118/75 09/25/19 12:00 97.3 83 18 118/75 (89) 98 09/25/19 12:00 Nasal Cannula 3.0 09/25/19 12:00 85 09/25/19 11:15 74 22 99 Nasal Cannula 3.0 32 73 20 94 09/25/19 08:00 97.7 91 18 112/79 (90) 97 09/25/19 08:00 88 09/25/19 08:00 Nasal Cannula 3.0 09/25/19 07:21 97 22 98 Nasal Cannula 3.0 32 77 20 96 09/25/19 07:18 96 Nasal Cannula 3.0 32 09/25/19 05:12 89 105/62 09/25/19 04:00 89 09/25/19 04:00 Nasal Cannula 3.0 09/25/19 04:00 88 18 95 Nasal Cannula 3.0 32 82 18 93 09/25/19 04:00 97.7 96 19 105/62 (76) 99 09/25/19 02:56 98.0 09/25/19 00:00 94 09/25/19 00:00 105 18 96 Nasal Cannula 3.0 32 101 18 94 09/25/19 00:00 98.0 94 19 140/92 (108) 96 09/25/19 00:00 Nasal Cannula 3.0 09/24/19 22:34 98.8 09/24/19 22:03 98 132/80 09/24/19 21:37 94 Nasal Cannula 3.0 32 Intake and Output 09/24/19 09/25/19 18:59 06:59 Intake Total 905.688 ml 748.894 ml Output Total 1000 ml Balance 905.688 ml -251.106 ml Intake Oral 600 ml 450 ml IV Total 305.688 ml 298.894 ml Output Urine Total 1000 ml # Voids 3 5 # Bowel Movements 2 Laboratory Tests 09/25/19 04:10: White Blood Count 13.6#H, Red Blood Count 3.55L, Hemoglobin 12.2, Hematocrit 34.6L, Mean Corpuscular Volume 97, Mean Corpuscular Hemoglobin 34.3H, Mean Corpuscular Hemoglobin Concent 35.2, Red Cell Distribution Width 11.9, Platelet Count 199, Mean Platelet Volume 8.2, Neutrophils (%) (Auto) , Lymphocytes (%) ( Auto) , Monocytes (%) (Auto) , Eosinophils (%) (Auto) , Basophils (%) (Auto) , Activated Partial Thromboplast Time 68H, Sodium Level 139, Potassium Level 4.4, Chloride Level 103, Carbon Dioxide Level 26, Anion Gap 10, Blood Urea Nitrogen 18, Creatinine 1.1, Estimat Glomerular Filtration Rate > 60, Glucose Level 167H , Calcium Level 9.1 Height (Feet): 5 Height (Inches): 4.00 Weight (Pounds): 107 Neck: normal alignment Cardiovascular: normal rate Respiratory/Chest: lungs clear Cash Bach MD Sep 25, 2019 21:28
--- NOTE | 2019-09-25 22:41 | Pulmonolgy Critical Care Note ---
Critical Care - Asmt/Plan Assessment/Plan: Pulmonary CCM Progress Note HPI Patient is a 64 year old woman with previous history of Asthma, admitted c/o short of breath, noted to have PE Has chest and left arm pain as well involving the upper shoulder upper arm and left forearm, no hemoptysis Denies any neck pain denies any vomiting or diarrhea Denies any pleurisy denies any recent fevers Noted to have Pulmonary Emboli - on Heparin gtt Denies SOB LE dupplex negative Allergies: No Known Allergies Past Medical History: Asthma, Hypertension Social History: Cocaine use All Other Systems: negative except mentioned in HPI Physical Exam Vital Signs Noted General Appearance: well appearing, no apparent distress Head: normocephalic, atraumatic Eyes: bilateral eye PERRL, bilateral eye EOMI ENT: hearing grossly normal, normal pharynx, TMs + canals normal, uvula midline Neck: full range of motion, supple, no meningismus, no bony tend Respiratory: no respiratory distress, no retraction, no accessory muscle use, wheezing - Bilaterally Cardiovascular: normal peripheral pulses, regular rate, rhythm, HS1, HS2 normal ,no edema, no gallop, no JVD, no murmur Gastrointestinal: normal bowel sounds, non tender, soft, no mass, no organomegaly, non-distended, no guarding, no hernia, no pulsatile mass, no rebound Genitourinary: no CVA tenderness Musculoskeletal: other - Subjectively complains of left arm pain however moves in all flexion extension able to supinate and pronate without focal 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: motor strength/tone normal, 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 nml as tested, oriented x3 , sensory intact, responsive Skin: no rash Lymphatic: normal inspection, no adenopathy Impression: Pulmonary embolism Shortness of breath Asthma Hypertension Cocaine Use Plan Heparin gtt Breathing treatments O2 PRN Solumedrol - wean ENERGY RATER Medications Cardiology following Echocardiogram PPX Monitor labs Labs noted EKG: Rate: normal Rhythm: NSR ST Segments: other - Nonspecific ST and T wave changes Chest X-Ray: no consolidation, no effusion, other - Left lower lobe opacities CTA chest: Study is positive for small bilateral pulmonary emboli Seen earlier Critical Care - Objective Last 24 Hour Vital Signs Date Time Temp Pulse Resp B/P (MAP) Pulse Ox O2 Delivery O2 Flow Rate FiO2 09/25/19 22:27 98 111/70 2/4/20 20:10 98 Nasal Cannula 3.0 32 09/25/19 20:00 78 20 99 Nasal Cannula 3.0 32 73 20 98 09/25/19 16:00 96.6 75 18 134/88 (103) 95 09/25/19 16:00 Nasal Cannula 3.0 09/25/19 16:00 90 09/25/19 15:15 75 22 99 Nasal Cannula 3.0 32 09/25/19 13:11 83 118/75 09/25/19 12:00 97.3 83 18 118/75 (89) 98 09/25/19 12:00 Nasal Cannula 3.0 09/25/19 12:00 85 09/25/19 11:15 74 22 99 Nasal Cannula 3.0 32 73 20 94 09/25/19 08:00 97.7 91 18 112/79 (90) 97 09/25/19 08:00 88 09/25/19 08:00 Nasal Cannula 3.0 09/25/19 07:21 97 22 98 Nasal Cannula 3.0 32 77 20 96 09/25/19 07:18 96 Nasal Cannula 3.0 32 09/25/19 05:12 89 105/62 09/25/19 04:00 89 09/25/19 04:00 Nasal Cannula 3.0 09/25/19 04:00 88 18 95 Nasal Cannula 3.0 32 82 18 93 09/25/19 04:00 97.7 96 19 105/62 (76) 99 09/25/19 02:56 98.0 09/25/19 00:00 94 09/25/19 00:00 105 18 96 Nasal Cannula 3.0 32 101 18 94 09/25/19 00:00 98.0 94 19 140/92 (108) 96 09/25/19 00:00 Nasal Cannula 3.0 Critical Care - Subjective ROS Limited/Unobtainable: No Condition: improving FI02: 32 Sputum Amount: None I&O: Intake and Output 09/24/19 09/25/19 18:59 06:59 Intake Total 905.688 ml 748.894 ml Output Total 1000 ml Balance 905.688 ml -251.106 ml Intake Oral 600 ml 450 ml IV Total 305.688 ml 298.894 ml Output Urine Total 1000 ml # Voids 3 5 # Bowel Movements 2 Harry Corona MD Sep 25, 2019 22:40
--- NOTE | 2019-09-25 23:17 | Cardiology Progress Note ---
Assessment/Plan Assessment/Plan 1. Dyspnea due to bilateral small pulmonary emboli, was started on Eliquis. 2D echocardiography shows no signs of RV strain, LVEF normal at 55%. 2. Slight elevation of troponin I level is likely due to PE, no ECG changes of ischemia is evident. 3. History of asthma. Pulmonary followup. 4. Positive cocaine in the urine. Continue Diltiazem. Subjective Subjective Sinus rhythm at rate of 72. Objective Last 24 Hour Vital Signs Date Time Temp Pulse Resp B/P (MAP) Pulse Ox O2 Delivery O2 Flow Rate FiO2 09/25/19 22:54 72 20 98 Nasal Cannula 3.0 32 70 18 97 09/25/19 22:27 98 111/70 09/25/19 20:10 98 Nasal Cannula 3.0 32 09/25/19 20:00 78 20 99 Nasal Cannula 3.0 32 73 20 98 09/25/19 20:00 Nasal Cannula 3.0 09/25/19 16:00 96.6 75 18 134/88 (103) 95 09/25/19 16:00 Nasal Cannula 3.0 09/25/19 16:00 90 09/25/19 15:15 75 22 99 Nasal Cannula 3.0 32 09/25/19 13:11 83 118/75 09/25/19 12:00 97.3 83 18 118/75 (89) 98 09/25/19 12:00 Nasal Cannula 3.0 09/25/19 12:00 85 09/25/19 11:15 74 22 99 Nasal Cannula 3.0 32 73 20 94 09/25/19 08:00 97.7 91 18 112/79 (90) 97 09/25/19 08:00 88 09/25/19 08:00 Nasal Cannula 3.0 09/25/19 07:21 97 22 98 Nasal Cannula 3.0 32 77 20 96 09/25/19 07:18 96 Nasal Cannula 3.0 32 09/25/19 05:12 89 105/62 09/25/19 04:00 89 09/25/19 04:00 Nasal Cannula 3.0 09/25/19 04:00 88 18 95 Nasal Cannula 3.0 32 82 18 93 09/25/19 04:00 97.7 96 19 105/62 (76) 99 09/25/19 02:56 98.0 09/25/19 00:00 94 09/25/19 00:00 105 18 96 Nasal Cannula 3.0 32 101 18 94 09/25/19 00:00 98.0 94 19 140/92 (108) 96 09/25/19 00:00 Nasal Cannula 3.0 Intake and Output 09/24/19 09/25/19 19:00 07:00 Intake Total 898.894 ml 755.688 ml Output Total 1000 ml Balance 898.894 ml -244.312 ml Intake Oral 600 ml 450 ml IV Total 298.894 ml 305.688 ml Output Urine Total 1000 ml # Voids 3 5 # Bowel Movements 2 2D Echo: LVEF 55%, Mild LVH, RVSP 31 mmHg, Normal RV size w/ no strain, Grade I LVDD Laboratory Tests Test 09/25/19 04:10 White Blood Count 13.6 K/UL (4.8-10.8) #H Red Blood Count 3.55 M/UL (4.20-5.40) L Hemoglobin 12.2 G/DL (12.0-16.0) Hematocrit 34.6 % (37.0-47.0) L Mean Corpuscular Volume 97 FL (80-99) Mean Corpuscular Hemoglobin 34.3 PG (27.0-31.0) H Mean Corpuscular Hemoglobin Concent 35.2 G/DL (32.0-36.0) Red Cell Distribution Width 11.9 % (11.6-14.8) Platelet Count 199 K/UL (150-450) Mean Platelet Volume 8.2 FL (6.5-10.1) Neutrophils (%) (Auto) % (45.0-75.0) Lymphocytes (%) (Auto) % (20.0-45.0) Monocytes (%) (Auto) % (1.0-10.0) Eosinophils (%) (Auto) % (0.0-3.0) Basophils (%) (Auto) % (0.0-2.0) Activated Partial Thromboplast Time 68 SEC (23-33) H Sodium Level 139 MMOL/L (136-145) Potassium Level 4.4 MMOL/L (3.5-5.1) Chloride Level 103 MMOL/L (98-107) Carbon Dioxide Level 26 MMOL/L (21-32) Anion Gap 10 mmol/L (5-15) Blood Urea Nitrogen 18 mg/dL (7-18) Creatinine 1.1 MG/DL (0.55-1.30) Estimat Glomerular Filtration Rate > 60 mL/min (>60) Glucose Level 167 MG/DL (74-106) H Calcium Level 9.1 MG/DL (8.5-10.1) Objective HEENT: Somewhat agitated. Atraumatic and normocephalic. Anicteric. Pupils are equal, round, and reactive to light and accommodation. Extraocular muscles intact. NECK: JVP less than 5 cm. No carotid bruit. Carotid upstrokes 2+ bilaterally. CARDIOVASCULAR: Normal S1 and S2. A 2/6 mid systolic murmur at the xiphoid area with RVS3. LUNGS: Diminished breath sounds in both lungs. ABDOMEN: Soft, nontender, and nondistended. No hepatosplenomegaly. Positive bowel sounds. EXTREMITIES: No evidence of edema, clubbing, or cyanosis. Dayron Tate MD Sep 25, 2019 23:17
[2019-09-26] VITALS: BP 99/70
[2019-09-26] MEDS: Albuterol/Ipratropium 3ml neb HHN SCH ×6 (03:23→23:39)
[2019-09-26] MEDS: dilTIAZem HCl 30mg tab ORAL SCH ×3 (05:17→21:36)
--- NOTE | 2019-09-26 07:08 | NUR ---
HAND-OFF: Report given to Jacklyn Gordon RN. Pt in stable condition, endorsed plan of care and continued monitoring.
--- NOTE | 2019-09-26 07:11 | NUR ---
NURSE NOTES: Received report from Miriam/RN, Observed Patient asleep, lying semi-can's, resting comfortably. On 2L nasal canula, no acute distress/SOB noted. Breathing even and unlabored. IV on Right AC, patent and asymptomatic, no bleeding or infiltration noted. Bed in low position and locked, Bed alarm engaged, side rails up x3. Call light within reach, Encouraged to use call light when needed. Will continue plan of care.
[2019-09-26 08:00] VITALS: BP 126/84
[2019-09-26] MEDS ORDERED: Solu-MEDROL 40mg Inj IVP SCH (09:00)
--- NOTE | 2019-09-26 09:05 | General Progress Note ---
Assessment/Plan Assessment/Plan: (1) Chest pain (2) Pulmonary embolism (3) Cocaine abuse Patient to be continued on Jaroso and Dilaudid D/w Dr Frost and he concurred. Subjective Date patient seen: Sep 26, 2019 Time patient seen: 08:30 - am Allergies: Coded Allergies: No Known Allergies (Unverified , 09/22/19) Subjective Constitutional: Reports: no symptoms HEENT: Reports: no symptoms Cardiovascular: Reports: no symptoms Respiratory: Reports: no symptoms Gastrointestinal/Abdominal: Reports: no symptoms Genitourinary: Reports: no symptoms Neurologic/Psychiatric: Reports: no symptoms Endocrine: Reports: no symptoms Hematologic/Lymphatic: Reports: no symptoms Allergies: Subjective: Patient is showing no signs of pain or distress. Pain has been unchanged. No new complaints at this time. Objective Last 24 Hour Vital Signs Date Time Temp Pulse Resp B/P (MAP) Pulse Ox O2 Delivery O2 Flow Rate FiO2 09/26/19 08:10 96 Nasal Cannula 3.0 32 09/26/19 08:00 97.9 79 21 126/84 (98) 95 09/26/19 05:17 82 107/66 09/26/19 04:00 89 09/26/19 04:00 Nasal Cannula 4.0 09/26/19 03:19 79 20 98 Nasal Cannula 3.0 32 76 22 96 09/26/19 00:00 Nasal Cannula 4.0 09/26/19 00:00 97.9 70 18 99/70 (80) 98 09/25/19 22:54 72 20 98 Nasal Cannula 3.0 32 70 18 97 09/25/19 22:27 98 111/70 09/25/19 20:10 98 Nasal Cannula 3.0 32 09/25/19 20:00 78 20 99 Nasal Cannula 3.0 32 73 20 98 09/25/19 20:00 98.7 98 20 136/84 (101) 96 09/25/19 20:00 Nasal Cannula 3.0 09/25/19 20:00 88 09/25/19 16:00 96.6 75 18 134/88 (103) 95 09/25/19 16:00 Nasal Cannula 3.0 09/25/19 16:00 90 09/25/19 15:15 75 22 99 Nasal Cannula 3.0 32 09/25/19 13:11 83 118/75 09/25/19 12:00 97.3 83 18 118/75 (89) 98 09/25/19 12:00 Nasal Cannula 3.0 09/25/19 12:00 85 09/25/19 11:15 74 22 99 Nasal Cannula 3.0 32 73 20 94 Intake and Output 09/25/19 09/26/19 19:00 07:00 Intake Total 326.368 ml Balance 326.368 ml Intake Oral 320 ml IV Total 6.368 ml # Voids 1 Laboratory Tests 09/26/19 04:01: Activated Partial Thromboplast Time 24 Height (Feet): 5 Height (Inches): 4.00 Weight (Pounds): 124 Objective General Appearance: no apparent distress, alert EENT: PERRL/EOMI Neck: non-tender, normal alignment Cardiovascular: normal rate, regular rhythm Respiratory/Chest: decreased breath sounds Abdomen: non tender, soft Extremities: non-tender Edema: no edema noted Generalized Neurologic: alert, oriented x 3 Skin: warm/dry Ronen Posadas Sep 26, 2019 09:05
[2019-09-26] MEDS: Doxycycline Monohydrate 100mg ORAL SCH ×2 (09:25→21:03)
[2019-09-26] MEDS: Eliquis 5mg tablet ORAL SCH ×2 (09:27→17:16)
--- NOTE | 2019-09-26 10:41 | Infectious Diseases Prog Note ---
Assessment/Plan Assessment/Plan IMPRESSION: Pulmonary emboli. Asthma attack, Emphysema, Hypertension, Scoliosis, Cocaine and opiate abuse. Leukocytosis, may be steroid related RECOMMENDATION: Observe off antibiotic Taper methylprednisone. Subjective ROS Limited/Unobtainable: No Constitutional: Reports: no symptoms Respiratory: Reports: no symptoms Cardiovascular: Reports: dyspnea on exertion Gastrointestinal/Abdominal: Reports: no symptoms Genitourinary: Reports: no symptoms Allergies: Coded Allergies: No Known Allergies (Unverified , 09/22/19) Objective Vital Signs Last 24 Hour Vital Signs Date Time Temp Pulse Resp B/P (MAP) Pulse Ox O2 Delivery O2 Flow Rate FiO2 09/26/19 10:10 70 22 99 Nasal Cannula 3.0 32 68 20 96 09/26/19 08:10 96 Nasal Cannula 3.0 32 09/26/19 08:00 Nasal Cannula 4.0 09/26/19 08:00 97.9 79 21 126/84 (98) 95 09/26/19 08:00 85 09/26/19 05:17 82 107/66 09/26/19 04:00 89 09/26/19 04:00 Nasal Cannula 4.0 09/26/19 03:19 79 20 98 Nasal Cannula 3.0 32 76 22 96 09/26/19 00:00 Nasal Cannula 4.0 09/26/19 00:00 97.9 70 18 99/70 (80) 98 09/25/19 22:54 72 20 98 Nasal Cannula 3.0 32 70 18 97 09/25/19 22:27 98 111/70 09/25/19 20:10 98 Nasal Cannula 3.0 32 09/25/19 20:00 78 20 99 Nasal Cannula 3.0 32 73 20 98 09/25/19 20:00 98.7 98 20 136/84 (101) 96 09/25/19 20:00 Nasal Cannula 3.0 09/25/19 20:00 88 09/25/19 16:00 96.6 75 18 134/88 (103) 95 09/25/19 16:00 Nasal Cannula 3.0 09/25/19 16:00 90 09/25/19 15:15 75 22 99 Nasal Cannula 3.0 32 09/25/19 13:11 83 118/75 09/25/19 12:00 97.3 83 18 118/75 (89) 98 09/25/19 12:00 Nasal Cannula 3.0 09/25/19 12:00 85 09/25/19 11:15 74 22 99 Nasal Cannula 3.0 32 73 20 94 Height (Feet): 5 Height (Inches): 4.00 Weight (Pounds): 124 General Appearance: no acute distress HEENT: mucous membranes moist Respiratory/Chest: lungs clear Cardiovascular: normal rate Abdomen: soft, non tender Extremities: no edema Neurologic/Psychiatric: alert, oriented x 3 Laboratory Tests Test 09/26/19 04:01 Activated Partial Thromboplast Time 24 SEC (23-33) Current Medications Medications (Trade) Dose Ordered Sig/Edil Route PRN Reason Start Time Stop Time Status Last Admin Dose Admin Acetaminophen (Tylenol) 650 mg Q6H PRN ORAL Mild Pain/Temp > 100.5 09/25/19 15:07 10/25/19 15:06 Acetaminophen/ Hydrocodone Bitart (Acushnet 5/325) 1 tab Q6H PRN ORAL For Pain 09/25/19 15:07 10/02/19 15:06 Albuterol/ Ipratropium (Albuterol/ Ipratropium) 3 ml Q4HRT HHN 09/25/19 19:00 09/27/19 23:14 09/26/19 10:10 Apixaban (Eliquis) 10 mg BID ORAL 09/25/19 18:00 10/25/19 08:59 09/26/19 09:27 Dextrose (Dextrose 50%) 25 ml Q30M PRN IV Hypoglycemia 09/25/19 15:15 10/22/19 23:14 Dextrose (Dextrose 50%) 50 ml Q30M PRN IV Hypoglycemia 09/25/19 15:15 10/22/19 23:14 Diltiazem HCl (Cardizem) 30 mg EVERY 8 HOURS ORAL 09/25/19 22:00 10/22/19 21:59 09/26/19 05:17 Doxycycline Monohydrate (Doxycycline Monohydrate) 100 mg EVERY 12 HOURS ORAL 09/25/19 21:00 09/30/19 08:59 09/26/19 09:25 Guaifenesin (Robitussin) 100 mg Q6H PRN ORAL For Cough 09/25/19 15:07 10/25/19 15:06 Hydromorphone HCl (Dilaudid) 0.5 mg Q3H PRN IVP Pain Scale (7-10) 09/25/19 15:08 10/02/19 15:07 09/25/19 22:28 Methylprednisolone Sodium Succinate (Solu-MEDROL) 30 mg Q24HRS IVP 09/26/19 09:00 10/23/19 05:59 09/26/19 09:25 Pantoprazole (Protonix) 40 mg DAILY ORAL 09/26/19 09:00 10/23/19 08:59 09/26/19 09:26 Quetiapine Fumarate (SEROqueL) 150 mg QHS ORAL 09/25/19 21:00 10/24/19 21:56 09/25/19 21:09 Ghassan Garcia MD Sep 26, 2019 10:41
[2019-09-26 12:00] VITALS: BP 112/72
--- NOTE | 2019-09-26 12:04 | NUR ---
CASE MANAGEMENT:REVIEW 09/26/19 SI: BILATERAL PULMONARY EMBOLI 97.9 70 20 126/84 96% ON 3L/NC IS: IV SOLUMEDROL Q24 CARDIZEM PO Q8HRS DOXYCYCLINE PO Q12 DUONEB HHN Q4HRS ELIQUIS PO BID : NOW ON TELEMETRY DCP: HOME
--- NOTE | 2019-09-26 14:21 | Hematology/Onc Progress Note ---
Assessment/Plan Assessment/Plan Assessment and Recs: # Bilateral Pulmonary embolism - noted on imaging --> consider to continue on heparin gtt--> now changed to eliquis --> hypercoag w/u as needed prn basis --> may be related to recent drug use as well --> recommend 3-6 mo of anticoagulation --> dw cards # Coagulopathy --> may be due to heparin gtt # Shortness of breath --> prn breathing treatments # Asthma --> as per pulm # Hypertension --> as per cards # Dvt ppx with jonny Mcwilliams Rn and appreciate consultation. Subjective Constitutional: Denies: no symptoms, chills, fever, malaise, weakness, other HEENT: Denies: no symptoms, eye pain, blurred vision, tearing, double vision, ear pain, ear discharge, nose pain, nose congestion, throat pain, throat swelling, mouth pain, mouth swelling, other Gastrointestinal/Abdominal: Denies: no symptoms, abdomen distended, abdominal pain, black stools, tarry stools, blood in stool, constipated, diarrhea, difficulty swallowing, nausea, poor appetite, poor fluid intake, rectal bleeding , vomiting, other Genitourinary: Denies: no symptoms, burning, discharge, frequency, flank pain, hematuria, incontinence, pain, urgency, other Neurologic/Psychiatric: Denies: no symptoms, anxiety, depressed, emotional problems, headache, numbness, paresthesia, pre-existing deficit, seizure, tingling, tremors, weakness, other Endocrine: Denies: no symptoms, excessive sweating, flushing, intolerance to cold, intolerance to heat, increased hunger, increased thirst, increased urine, unexplained weight gain, unexplained weight loss, other Allergies: Coded Allergies: No Known Allergies (Unverified , 09/22/19) Subjective 2: no bleeding, no f/c, no night sweats, no major events 09/25: ok to change heparin gtt to eliquis, will do at this time, cards recs noted 09/26: no bleeding, on steriods, being tapered Objective Objective Current Medications Medications (Trade) Dose Ordered Sig/Edil Route PRN Reason Start Time Stop Time Status Last Admin Dose Admin Acetaminophen (Tylenol) 650 mg Q6H PRN ORAL Mild Pain/Temp > 100.5 09/25/19 15:07 10/25/19 15:06 Acetaminophen/ Hydrocodone Bitart ([place] 5/325) 1 tab Q6H PRN ORAL For Pain 09/25/19 15:07 10/02/19 15:06 Albuterol/ Ipratropium (Albuterol/ Ipratropium) 3 ml Q4HRT HHN 09/25/19 19:00 09/27/19 23:14 09/26/19 10:10 Apixaban (Eliquis) 10 mg BID ORAL 09/25/19 18:00 10/25/19 08:59 09/26/19 09:27 Calcium/Vitamin D (OsCal D) 1 tab BID ORAL 09/26/19 18:00 10/26/19 17:59 Dextrose (Dextrose 50%) 25 ml Q30M PRN IV Hypoglycemia 09/25/19 15:15 10/22/19 23:14 Dextrose (Dextrose 50%) 50 ml Q30M PRN IV Hypoglycemia 09/25/19 15:15 10/22/19 23:14 Diltiazem HCl (Cardizem) 30 mg EVERY 8 HOURS ORAL 09/25/19 22:00 10/22/19 21:59 09/26/19 13:20 Doxycycline Monohydrate (Doxycycline Monohydrate) 100 mg EVERY 12 HOURS ORAL 09/25/19 21:00 09/30/19 08:59 09/26/19 09:25 Guaifenesin (Robitussin) 100 mg Q6H PRN ORAL For Cough 09/25/19 15:07 10/25/19 15:06 Hydromorphone HCl (Dilaudid) 0.5 mg Q3H PRN IVP Pain Scale (7-10) 09/25/19 15:08 10/02/19 15:07 09/25/19 22:28 Methylprednisolone Sodium Succinate (Solu-MEDROL) 30 mg Q24HRS IVP 09/26/19 09:00 10/23/19 05:59 09/26/19 09:25 Pantoprazole (Protonix) 40 mg DAILY ORAL 09/26/19 09:00 10/23/19 08:59 09/26/19 09:26 Quetiapine Fumarate (SEROqueL) 150 mg QHS ORAL 09/25/19 21:00 10/24/19 21:56 09/25/19 21:09 Last 24 Hour Vital Signs Date Time Temp Pulse Resp B/P (MAP) Pulse Ox O2 Delivery O2 Flow Rate FiO2 09/26/19 13:20 67 112/72 09/26/19 12:00 97.7 67 20 112/72 (85) 97 09/26/19 12:00 Nasal Cannula 4.0 09/26/19 12:00 76 09/26/19 10:10 70 22 99 Nasal Cannula 3.0 32 68 20 96 09/26/19 08:10 96 Nasal Cannula 3.0 32 09/26/19 08:00 Nasal Cannula 4.0 09/26/19 08:00 97.9 79 21 126/84 (98) 95 09/26/19 08:00 85 09/26/19 05:17 82 107/66 09/26/19 04:00 89 09/26/19 04:00 Nasal Cannula 4.0 09/26/19 03:19 79 20 98 Nasal Cannula 3.0 32 76 22 96 09/26/19 00:00 Nasal Cannula 4.0 09/26/19 00:00 97.9 70 18 99/70 (80) 98 09/25/19 22:54 72 20 98 Nasal Cannula 3.0 32 70 18 97 09/25/19 22:27 98 111/70 09/25/19 20:10 98 Nasal Cannula 3.0 32 09/25/19 20:00 78 20 99 Nasal Cannula 3.0 32 73 20 98 09/25/19 20:00 98.7 98 20 136/84 (101) 96 09/25/19 20:00 Nasal Cannula 3.0 09/25/19 20:00 88 09/25/19 16:00 96.6 75 18 134/88 (103) 95 09/25/19 16:00 Nasal Cannula 3.0 09/25/19 16:00 90 09/25/19 15:15 75 22 99 Nasal Cannula 3.0 32 09/25/19 13:11 83 118/75 09/25/19 12:00 97.3 83 18 118/75 (89) 98 09/25/19 12:00 Nasal Cannula 3.0 09/25/19 12:00 85 09/25/19 11:15 74 22 99 Nasal Cannula 3.0 32 73 20 94 2/4/20 08:00 97.7 91 18 112/79 (90) 97 09/25/19 08:00 88 09/25/19 08:00 Nasal Cannula 3.0 09/25/19 07:21 97 22 98 Nasal Cannula 3.0 32 77 20 96 09/25/19 07:18 96 Nasal Cannula 3.0 32 09/25/19 05:12 89 105/62 09/25/19 04:00 89 09/25/19 04:00 Nasal Cannula 3.0 09/25/19 04:00 88 18 95 Nasal Cannula 3.0 32 82 18 93 09/25/19 04:00 97.7 96 19 105/62 (76) 99 09/25/19 02:56 98.0 09/25/19 00:00 94 09/25/19 00:00 105 18 96 Nasal Cannula 3.0 32 101 18 94 09/25/19 00:00 98.0 94 19 140/92 (108) 96 09/25/19 00:00 Nasal Cannula 3.0 09/24/19 22:34 98.8 09/24/19 22:03 98 132/80 09/24/19 21:37 94 Nasal Cannula 3.0 32 09/24/19 20:00 103 09/24/19 20:00 98.8 98 19 132/80 (97) 98 09/24/19 20:00 92 18 98 Nasal Cannula 3.0 32 86 18 95 09/24/19 20:00 Nasal Cannula 3.0 09/24/19 16:00 Nasal Cannula 3.0 09/24/19 16:00 97.2 98 20 111/84 (93) 96 09/24/19 15:22 101 09/24/19 15:11 90 16 99 Nasal Cannula 3.0 32 85 18 96 09/24/19 14:35 89 133/82 Intake and Output 09/25/19 09/26/19 19:00 07:00 Intake Total 326.368 ml Balance 326.368 ml Intake Oral 320 ml IV Total 6.368 ml # Voids 1 Labs Test 09/24/19 04:20 09/24/19 12:00 09/25/19 04:10 09/26/19 04:01 White Blood Count 8.3 K/UL (4.8-10.8) 13.6 K/UL (4.8-10.8) Red Blood Count 3.48 M/UL (4.20-5.40) 3.55 M/UL (4.20-5.40) Hemoglobin 11.7 G/DL (12.0-16.0) 12.2 G/DL (12.0-16.0) Hematocrit 34.1 % (37.0-47.0) 34.6 % (37.0-47.0) Mean Corpuscular Volume 98 FL (80-99) 97 FL (80-99) Mean Corpuscular Hemoglobin 33.7 PG (27.0-31.0) 34.3 PG (27.0-31.0) Mean Corpuscular Hemoglobin Concent 34.3 G/DL (32.0-36.0) 35.2 G/DL (32.0-36.0) Red Cell Distribution Width 11.9 % (11.6-14.8) 11.9 % (11.6-14.8) Platelet Count 186 K/UL (150-450) 199 K/UL (150-450) Mean Platelet Volume 8.8 FL (6.5-10.1) 8.2 FL (6.5-10.1) Neutrophils (%) (Auto) % (45.0-75.0) % (45.0-75.0) Lymphocytes (%) (Auto) % (20.0-45.0) % (20.0-45.0) Monocytes (%) (Auto) % (1.0-10.0) % (1.0-10.0) Eosinophils (%) (Auto) % (0.0-3.0) % (0.0-3.0) Basophils (%) (Auto) % (0.0-2.0) % (0.0-2.0) Differential Total Cells Counted 100 Neutrophils % (Manual) 94 % (45-75) Lymphocytes % (Manual) 4 % (20-45) Monocytes % (Manual) 2 % (1-10) Eosinophils % (Manual) 0 % (0-3) Basophils % (Manual) 0 % (0-2) Band Neutrophils 0 % (0-8) Platelet Estimate Adequate Platelet Morphology Normal Red Blood Cell Morphology Normal Activated Partial Thromboplast Time 46 SEC (23-33) 88 SEC (23-33) 68 SEC (23-33) 24 SEC (23-33) Sodium Level 136 MMOL/L (136-145) 139 MMOL/L (136-145) Potassium Level 4.0 MMOL/L (3.5-5.1) 4.4 MMOL/L (3.5-5.1) Chloride Level 102 MMOL/L (98-107) 103 MMOL/L (98-107) Carbon Dioxide Level 25 MMOL/L (21-32) 26 MMOL/L (21-32) Anion Gap 9 mmol/L (5-15) 10 mmol/L (5-15) Blood Urea Nitrogen 15 mg/dL (7-18) 18 mg/dL (7-18) Creatinine 1.0 MG/DL (0.55-1.30) 1.1 MG/DL (0.55-1.30) Estimat Glomerular Filtration Rate > 60 mL/min (>60) > 60 mL/min (>60) Glucose Level 183 MG/DL (74-106) 167 MG/DL (74-106) Calcium Level 8.9 MG/DL (8.5-10.1) 9.1 MG/DL (8.5-10.1) Height (Feet): 5 Height (Inches): 4.00 Weight (Pounds): 124 Objective Physical Exam General: well appearing, nad HEENT: full range of motion, supple, no meningismus Resp: no respiratory distress, no retraction, no accessory muscle use CV: normal peripheral pulses, regular rate, rhythm GI: normal bowel sounds, non tender, soft, no mass : no CVA tenderness MSK: subjectively complains of left arm pain Neurologic: motor strength/tone normal, responsive Jose Bates MD Sep 26, 2019 14:21
[2019-09-26 16:00] VITALS: BP 133/82
[2019-09-26] MEDS: Calcium Carbonate 500mg w/Vit D 200iu tab ORAL SCH (17:16)
--- NOTE | 2019-09-26 18:04 | Pulmonolgy Critical Care Note ---
Critical Care - Asmt/Plan Assessment/Plan: Pulmonary CCM Progress Note HPI Patient is a 64 year old woman with previous history of Asthma, admitted c/o short of breath, noted to have PE Has chest and left arm pain as well involving the upper shoulder upper arm and left forearm, no hemoptysis Denies any neck pain denies any vomiting or diarrhea Denies any pleurisy denies any recent fevers Noted to have Pulmonary Emboli - on Heparin gtt Denies SOB, no new complaints LE dupplex negative Allergies: No Known Allergies Past Medical History: Asthma, Hypertension Social History: Cocaine use All Other Systems: negative except mentioned in HPI Physical Exam Vital Signs Noted General Appearance: well appearing, no apparent distress Head: normocephalic, atraumatic Eyes: bilateral eye PERRL, bilateral eye EOMI ENT: hearing grossly normal, normal pharynx, TMs + canals normal, uvula midline Neck: full range of motion, supple, no meningismus, no bony tend Respiratory: no respiratory distress, no retraction, no accessory muscle use, wheezing - Bilaterally Cardiovascular: normal peripheral pulses, regular rate, rhythm, HS1, HS2 normal ,no edema, no gallop, no JVD, no murmur Gastrointestinal: normal bowel sounds, non tender, soft, no mass, no organomegaly, non-distended, no guarding, no hernia, no pulsatile mass, no rebound Genitourinary: no CVA tenderness Musculoskeletal: other - Subjectively complains of left arm pain however moves in all flexion extension able to supinate and pronate without focal deficit 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 Neurologic: motor strength/tone normal, defence intelligence analyst III-XII nml as tested, oriented x3 , sensory intact, responsive Skin: no rash Lymphatic: normal inspection, no adenopathy Impression: Pulmonary embolism Shortness of breath Asthma Hypertension Cocaine Use Plan Heparin gtt Breathing treatments O2 PRN Solumedrol - wean [employer] Medications Cardiology following Echocardiogram PPX Monitor labs Labs noted EKG: Rate: normal Rhythm: NSR ST Segments: other - Nonspecific ST and T wave changes Chest X-Ray: no consolidation, no effusion, other - Left lower lobe opacities CTA chest: Study is positive for small bilateral pulmonary emboli Seen earlier Critical Care - Objective Last 24 Hour Vital Signs Date Time Temp Pulse Resp B/P (MAP) Pulse Ox O2 Delivery O2 Flow Rate FiO2 09/26/19 16:00 97.3 86 20 133/82 (99) 95 2/5/20 16:00 103 09/26/19 16:00 Nasal Cannula 4.0 09/26/19 15:57 62 12 98 Nasal Cannula 3.0 32 65 14 97 09/26/19 13:20 67 112/72 09/26/19 12:00 97.7 67 20 112/72 (85) 97 09/26/19 12:00 Nasal Cannula 4.0 09/26/19 12:00 76 09/26/19 10:10 70 22 99 Nasal Cannula 3.0 32 68 20 96 09/26/19 08:10 96 Nasal Cannula 3.0 32 09/26/19 08:00 Nasal Cannula 4.0 09/26/19 08:00 97.9 79 21 126/84 (98) 95 09/26/19 08:00 85 09/26/19 05:17 82 107/66 09/26/19 04:00 89 09/26/19 04:00 Nasal Cannula 4.0 09/26/19 03:19 79 20 98 Nasal Cannula 3.0 32 76 22 96 09/26/19 00:00 Nasal Cannula 4.0 09/26/19 00:00 97.9 70 18 99/70 (80) 98 09/25/19 22:54 72 20 98 Nasal Cannula 3.0 32 70 18 97 09/25/19 22:27 98 111/70 09/25/19 20:10 98 Nasal Cannula 3.0 32 09/25/19 20:00 78 20 99 Nasal Cannula 3.0 32 73 20 98 09/25/19 20:00 98.7 98 20 136/84 (101) 96 09/25/19 20:00 Nasal Cannula 3.0 09/25/19 20:00 88 Critical Care - Subjective ROS Limited/Unobtainable: No FI02: 32 Sputum Amount: None I&O: Intake and Output 09/25/19 09/26/19 19:00 07:00 Intake Total 326.368 ml Balance 326.368 ml Intake Oral 320 ml IV Total 6.368 ml # Voids 1 Harry Corona MD Sep 26, 2019 18:04
--- NOTE | 2019-09-26 19:35 | NUR ---
HAND-OFF: Report given to Victor M/EM, Patient in stable condition. Endorsed plan of care.
--- NOTE | 2019-09-26 19:36 | NUR ---
NURSE NOTES: Got report from Jacklyn RN. Pt in stable condition. Denies any pain. No s/s of distress or discomfort noted. Pt resting in bed comfortably. Bed in low and locked position, call light within reach, bedside table within reach. Continue to monitor.
[2019-09-26 20:00] VITALS: BP 148/91
--- NOTE | 2019-09-26 20:42 | General Progress Note ---
Assessment/Plan Problem List: (1) Pulmonary embolism ICD Codes: I26.99 - Other pulmonary embolism without acute cor pulmonale SNOMED: 62641810 Status: progressing Assessment/Plan: no bleeding pulmonary embolism elevate trop recheck trop anticoagulant per heme/onc on psych meds Subjective ROS Limited/Unobtainable: Yes Allergies: Coded Allergies: No Known Allergies (Unverified , 09/22/19) Objective Last 24 Hour Vital Signs Date Time Temp Pulse Resp B/P (MAP) Pulse Ox O2 Delivery O2 Flow Rate FiO2 09/26/19 19:56 95 Room Air 21 09/26/19 19:56 98 18 99 Room Air 21 96 20 95 09/26/19 16:00 97.3 86 20 133/82 (99) 95 09/26/19 16:00 103 09/26/19 16:00 Nasal Cannula 4.0 09/26/19 15:57 62 12 98 Nasal Cannula 3.0 32 65 14 97 09/26/19 13:20 67 112/72 09/26/19 12:00 97.7 67 20 112/72 (85) 97 09/26/19 12:00 Nasal Cannula 4.0 09/26/19 12:00 76 09/26/19 10:10 70 22 99 Nasal Cannula 3.0 32 68 20 96 09/26/19 08:10 96 Nasal Cannula 3.0 32 09/26/19 08:00 Nasal Cannula 4.0 09/26/19 08:00 97.9 79 21 126/84 (98) 95 09/26/19 08:00 85 09/26/19 05:17 82 107/66 09/26/19 04:00 89 09/26/19 04:00 Nasal Cannula 4.0 09/26/19 03:19 79 20 98 Nasal Cannula 3.0 32 76 22 96 09/26/19 00:00 Nasal Cannula 4.0 09/26/19 00:00 97.9 70 18 99/70 (80) 98 09/25/19 22:54 72 20 98 Nasal Cannula 3.0 32 70 18 97 09/25/19 22:27 98 111/70 Intake and Output 09/25/19 09/26/19 19:00 07:00 Intake Total 326.368 ml Balance 326.368 ml Intake Oral 320 ml IV Total 6.368 ml # Voids 1 Laboratory Tests 09/26/19 04:01: Activated Partial Thromboplast Time 24 Height (Feet): 5 Height (Inches): 4.00 Weight (Pounds): 124 Cardiovascular: regular rhythm Respiratory/Chest: lungs clear Abdomen: soft Cash Bach MD Sep 26, 2019 20:42
[2019-09-26] MEDS: HYDROcodone/Acetamin 5/325 tab ORAL PRN (21:03)
--- NOTE | 2019-09-26 22:47 | Cardiology Progress Note ---
Assessment/Plan Assessment/Plan 1. Dyspnea due to bilateral small pulmonary emboli, continue Eliquis. 2D echocardiography shows no signs of RV strain, LVEF normal at 55%. 2. Slight elevation of troponin I level is likely due to PE, no ECG changes of ischemia is evident. 3. History of asthma. Pulmonary followup. 4. Positive cocaine in the urine. 5. Optimize long acting Diltiazem. Subjective Subjective Sinus rhythm at rate of 86. Less SOB. Objective Last 24 Hour Vital Signs Date Time Temp Pulse Resp B/P (MAP) Pulse Ox O2 Delivery O2 Flow Rate FiO2 09/26/19 21:36 97.3 09/26/19 21:36 86 148/91 09/26/19 20:00 97.5 86 19 148/91 (110) 95 09/26/19 20:00 Nasal Cannula 4.0 09/26/19 19:56 95 Room Air 21 09/26/19 19:56 98 18 99 Room Air 21 96 20 95 09/26/19 16:00 97.3 86 20 133/82 (99) 95 09/26/19 16:00 103 09/26/19 16:00 Nasal Cannula 4.0 09/26/19 15:57 62 12 98 Nasal Cannula 3.0 32 65 14 97 09/26/19 13:20 67 112/72 09/26/19 12:00 97.7 67 20 112/72 (85) 97 09/26/19 12:00 Nasal Cannula 4.0 09/26/19 12:00 76 09/26/19 10:10 70 22 99 Nasal Cannula 3.0 32 68 20 96 09/26/19 08:10 96 Nasal Cannula 3.0 32 09/26/19 08:00 Nasal Cannula 4.0 09/26/19 08:00 97.9 79 21 126/84 (98) 95 09/26/19 08:00 85 09/26/19 05:17 82 107/66 09/26/19 04:00 89 09/26/19 04:00 Nasal Cannula 4.0 09/26/19 03:19 79 20 98 Nasal Cannula 3.0 32 76 22 96 09/26/19 00:00 Nasal Cannula 4.0 09/26/19 00:00 97.9 70 18 99/70 (80) 98 09/25/19 22:54 72 20 98 Nasal Cannula 3.0 32 70 18 97 Intake and Output 09/25/19 09/26/19 19:00 07:00 Intake Total 326.368 ml Balance 326.368 ml Intake Oral 320 ml IV Total 6.368 ml # Voids 1 2D Echo: LVEF 55%, Mild LVH, RVSP 31 mmHg, Normal RV size w/ no strain, Grade I LV Laboratory Tests Test 09/26/19 04:01 Activated Partial Thromboplast Time 24 SEC (23-33) Objective HEENT: Somewhat agitated. Atraumatic and normocephalic. Anicteric. Pupils are equal, round, and reactive to light and accommodation. Extraocular muscles intact. NECK: JVP less than 5 cm. No carotid bruit. Carotid upstrokes 2+ bilaterally. CARDIOVASCULAR: Normal S1 and S2. A 2/6 mid systolic murmur at the xiphoid area with RVS3. LUNGS: Diminished breath sounds in both lungs. ABDOMEN: Soft, nontender, and nondistended. No hepatosplenomegaly. Positive bowel sounds. EXTREMITIES: No evidence of edema, clubbing, or cyanosis. Dayron Tate MD Sep 26, 2019 22:47
[2019-09-27] VITALS: BP 132/89
--- NOTE | 2019-09-27 01:15 | Progress Note ---
DATE: 09/26/2019 SUBJECTIVE: The patient is in bed, no acute distress noted, stable. Has anxiety and breathing issues. MENTAL STATUS EXAMINATION: The patient is alert and oriented times self, place, situation, and date. Mood is depressed. Affect is constricted. Congruent with mood. Thought process is concrete. Thought content, no suicidal or homicidal ideation. Cognition is intact. Insight and judgment is fair. ASSESSMENT: 1. Bipolar disorder by history. 2. Anxiety. PLAN: 1. We will continue the Seroquel 150 at bedtime. 2. Provide the patient with reality orientation and supportive therapy. Susan Virk M.D. DR: SELWYN JOB#: [id number] CC:
[2019-09-27] MEDS: HYDROcodone/Acetamin 5/325 tab ORAL PRN ×2 (02:42→10:12)
[2019-09-27] MEDS: Albuterol/Ipratropium 3ml neb HHN SCH ×6 (03:42→23:29)
[2019-09-27 04:00] VITALS: BP 136/68
--- NOTE | 2019-09-27 05:48 | Hematology/Onc Progress Note ---
Assessment/Plan Assessment/Plan Assessment and Recs: # Bilateral Pulmonary embolism - noted on imaging --> consider to continue on heparin gtt--> now changed to eliquis --> hypercoag w/u as needed prn basis --> may be related to recent drug use as well --> recommend 3-6 mo of anticoagulation --> darby cards and pulm # Coagulopathy --> may be due to heparin gtt --> now on eliquis bid # Shortness of breath --> prn breathing treatments # Asthma --> as per pulm # Hypertension --> as per cards # Dvt ppx with jonny Mcwilliams Rn and appreciate consultation. Subjective Constitutional: Denies: no symptoms, chills, fever, malaise, weakness, other Respiratory: Denies: no symptoms, cough, shortness of breath, SOB with excertion, SOB at rest, sputum, wheezing, other Gastrointestinal/Abdominal: Denies: no symptoms, abdomen distended, abdominal pain, black stools, tarry stools, blood in stool, constipated, diarrhea, difficulty swallowing, nausea, poor appetite, poor fluid intake, rectal bleeding , vomiting, other Genitourinary: Denies: no symptoms, burning, discharge, frequency, flank pain, hematuria, incontinence, pain, urgency, other Hematologic/Lymphatic: Denies: no symptoms, anemia, easy bleeding, easy bruising, adenopathy, other Allergies: Coded Allergies: No Known Allergies (Unverified , 09/22/19) Subjective 2/3: no bleeding, no f/c, no night sweats, no major events 2: ok to change heparin gtt to eliquis, will do at this time, cards recs noted 09/26: no bleeding, on steriods, being tapered 09/27: less sob, tolerating blood thinner well, no bleedin Objective Objective Current Medications Medications (Trade) Dose Ordered Sig/Edil Route PRN Reason Start Time Stop Time Status Last Admin Dose Admin Acetaminophen (Tylenol) 650 mg Q6H PRN ORAL Mild Pain/Temp > 100.5 09/25/19 15:07 10/25/19 15:06 Acetaminophen/ Hydrocodone Bitart ([place] 5/325) 1 tab Q6H PRN ORAL For Pain 09/25/19 15:07 10/02/19 15:06 09/27/19 02:42 Albuterol/ Ipratropium (Albuterol/ Ipratropium) 3 ml Q4HRT HHN 09/25/19 19:00 09/27/19 23:14 09/27/19 03:42 Apixaban (Eliquis) 10 mg BID ORAL 09/25/19 18:00 10/25/19 08:59 09/26/19 17:16 Calcium/Vitamin D (OsCal D) 1 tab BID ORAL 09/26/19 18:00 10/26/19 17:59 09/26/19 17:16 Dextrose (Dextrose 50%) 25 ml Q30M PRN IV Hypoglycemia 09/25/19 15:15 10/22/19 23:14 Dextrose (Dextrose 50%) 50 ml Q30M PRN IV Hypoglycemia 09/25/19 15:15 10/22/19 23:14 Diltiazem HCl (Cardizem) 60 mg EVERY 8 HOURS ORAL 09/27/19 06:00 10/27/19 05:59 Doxycycline Monohydrate (Doxycycline Monohydrate) 100 mg EVERY 12 HOURS ORAL 09/25/19 21:00 09/30/19 08:59 09/26/19 21:03 Guaifenesin (Robitussin) 100 mg Q6H PRN ORAL For Cough 09/25/19 15:07 10/25/19 15:06 Hydromorphone HCl (Dilaudid) 0.5 mg Q3H PRN IVP Pain Scale (7-10) 09/25/19 15:08 10/02/19 15:07 09/25/19 22:28 Methylprednisolone Sodium Succinate (Solu-MEDROL) 20 mg Q24HRS IVP 09/27/19 09:00 10/23/19 05:59 Pantoprazole (Protonix) 40 mg DAILY ORAL 09/26/19 09:00 10/23/19 08:59 09/26/19 09:26 Quetiapine Fumarate (SEROqueL) 150 mg QHS ORAL 09/25/19 21:00 10/24/19 21:56 09/26/19 21:04 Last 24 Hour Vital Signs Date Time Temp Pulse Resp B/P (MAP) Pulse Ox O2 Delivery O2 Flow Rate FiO2 09/27/19 04:00 Nasal Cannula 4.0 09/27/19 04:00 86 2/6/20 04:00 98.8 80 19 136/68 (90) 95 09/27/19 03:42 68 18 99 Room Air 21 63 18 97 09/27/19 03:12 98.2 09/27/19 00:00 86 09/27/19 00:00 98.2 77 18 132/89 (103) 95 09/27/19 00:00 Nasal Cannula 4.0 09/26/19 23:39 93 18 99 Room Air 21 95 18 95 09/26/19 21:36 86 148/91 09/26/19 20:00 88 09/26/19 20:00 97.5 86 19 148/91 (110) 95 09/26/19 20:00 Nasal Cannula 4.0 09/26/19 19:56 95 Room Air 21 09/26/19 19:56 98 18 99 Room Air 21 96 20 95 09/26/19 16:00 97.3 86 20 133/82 (99) 95 09/26/19 16:00 103 09/26/19 16:00 Nasal Cannula 4.0 09/26/19 15:57 62 12 98 Nasal Cannula 3.0 32 65 14 97 09/26/19 13:20 67 112/72 09/26/19 12:00 97.7 67 20 112/72 (85) 97 09/26/19 12:00 Nasal Cannula 4.0 09/26/19 12:00 76 09/26/19 10:10 70 22 99 Nasal Cannula 3.0 32 68 20 96 09/26/19 08:10 96 Nasal Cannula 3.0 32 09/26/19 08:00 Nasal Cannula 4.0 09/26/19 08:00 97.9 79 21 126/84 (98) 95 09/26/19 08:00 85 09/26/19 05:17 82 107/66 09/26/19 04:00 89 09/26/19 04:00 Nasal Cannula 4.0 09/26/19 03:19 79 20 98 Nasal Cannula 3.0 32 76 22 96 09/26/19 00:00 Nasal Cannula 4.0 09/26/19 00:00 97.9 70 18 99/70 (80) 98 09/25/19 22:54 72 20 98 Nasal Cannula 3.0 32 70 18 97 09/25/19 22:27 98 111/70 09/25/19 20:10 98 Nasal Cannula 3.0 32 09/25/19 20:00 78 20 99 Nasal Cannula 3.0 32 73 20 98 09/25/19 20:00 98.7 98 20 136/84 (101) 96 09/25/19 20:00 Nasal Cannula 3.0 09/25/19 20:00 88 09/25/19 16:00 96.6 75 18 134/88 (103) 95 09/25/19 16:00 Nasal Cannula 3.0 09/25/19 16:00 90 09/25/19 15:15 75 22 99 Nasal Cannula 3.0 32 09/25/19 13:11 83 118/75 09/25/19 12:00 97.3 83 18 118/75 (89) 98 09/25/19 12:00 Nasal Cannula 3.0 09/25/19 12:00 85 09/25/19 11:15 74 22 99 Nasal Cannula 3.0 32 73 20 94 09/25/19 08:00 97.7 91 18 112/79 (90) 97 09/25/19 08:00 88 09/25/19 08:00 Nasal Cannula 3.0 09/25/19 07:21 97 22 98 Nasal Cannula 3.0 32 77 20 96 09/25/19 07:18 96 Nasal Cannula 3.0 32 Intake and Output 09/26/19 09/27/19 19:00 07:00 Intake Total 1260 ml Balance 1260 ml Intake Oral 1260 ml # Voids 2 Labs Test 09/24/19 12:00 09/25/19 04:10 09/26/19 04:01 Activated Partial Thromboplast Time 88 SEC (23-33) 68 SEC (23-33) 24 SEC (23-33) White Blood Count 13.6 K/UL (4.8-10.8) Red Blood Count 3.55 M/UL (4.20-5.40) Hemoglobin 12.2 G/DL (12.0-16.0) Hematocrit 34.6 % (37.0-47.0) Mean Corpuscular Volume 97 FL (80-99) Mean Corpuscular Hemoglobin 34.3 PG (27.0-31.0) Mean Corpuscular Hemoglobin Concent 35.2 G/DL (32.0-36.0) Red Cell Distribution Width 11.9 % (11.6-14.8) Platelet Count 199 K/UL (150-450) Mean Platelet Volume 8.2 FL (6.5-10.1) Neutrophils (%) (Auto) % (45.0-75.0) Lymphocytes (%) (Auto) % (20.0-45.0) Monocytes (%) (Auto) % (1.0-10.0) Eosinophils (%) (Auto) % (0.0-3.0) Basophils (%) (Auto) % (0.0-2.0) Sodium Level 139 MMOL/L (136-145) Potassium Level 4.4 MMOL/L (3.5-5.1) Chloride Level 103 MMOL/L (98-107) Carbon Dioxide Level 26 MMOL/L (21-32) Anion Gap 10 mmol/L (5-15) Blood Urea Nitrogen 18 mg/dL (7-18) Creatinine 1.1 MG/DL (0.55-1.30) Estimat Glomerular Filtration Rate > 60 mL/min (>60) Glucose Level 167 MG/DL (74-106) Calcium Level 9.1 MG/DL (8.5-10.1) Height (Feet): 5 Height (Inches): 4.00 Weight (Pounds): 124 Objective Physical Exam General: well appearing, nad HEENT: full range of motion, supple, no meningismus Resp: no respiratory distress, no retraction, no accessory muscle use CV: normal peripheral pulses, regular rate, rhythm GI: normal bowel sounds, non tender, soft, no mass : no CVA tenderness MSK: subjectively complains of left arm pain Neurologic: motor strength/tone normal, responsive Jose Bates MD Sep 27, 2019 05:47
[2019-09-27] MEDS: dilTIAZem HCl 30mg tab ORAL SCH ×3 (06:20→21:22)
--- NOTE | 2019-09-27 07:30 | NUR ---
HAND-OFF: Report given to Randi STRICKLAND.
--- NOTE | 2019-09-27 07:30 | NUR ---
NURSE NOTES: Nurse report given by EM Rose. Patient's sleeping but easily awake, eyes open spontaneously, breathing unlabored and regular, AO x 4, denies pain, no s/s of distress or SOB. Bed low and locked, call light within reach, side rails x 2, bed alarm is armed. IV is saline locked, flushed patent and asymptomatic. Will continue to monitor.
[2019-09-27 08:00] VITALS: BP 145/89
[2019-09-27] MEDS: Calcium Carbonate 500mg w/Vit D 200iu tab ORAL SCH ×2 (08:34→17:47)
[2019-09-27] MEDS: Doxycycline Monohydrate 100mg ORAL SCH ×2 (08:34→21:20)
[2019-09-27] MEDS: Eliquis 5mg tablet ORAL SCH ×2 (08:35→17:47)
[2019-09-27] MEDS ORDERED: Solu-MEDROL 40mg Inj IVP SCH (09:00)
--- NOTE | 2019-09-27 10:36 | NUR ---
CASE MANAGEMENT:REVIEW 09/27/19 SI: BILATERAL PULMONARY EMBOLI 97.3 79 19 145/89 95% ON 2-4L/NC IS: IV SOLUMEDROL 20MG Q24 CARDIZEM PO Q8HRS DOXYCYCLINE PO Q12 DUONEB HHN Q4HRS ELIQUIS PO BID : TELEMETRY STATUS DCP: HOME
--- NOTE | 2019-09-27 10:45 | General Progress Note ---
Assessment/Plan Assessment/Plan: (1) Chest pain (2) Pulmonary embolism (3) Cocaine abuse Patient to be continued on [place] and Dilaudid I d/w patient that due to cocaine abuse opioid medication will not be able to be provided for patient at discharge, she seems to understand D/w Dr Frost and he concurred. Subjective Date patient seen: Sep 27, 2019 Time patient seen: 09:45 - am Allergies: Coded Allergies: No Known Allergies (Unverified , 09/22/19) Subjective Constitutional: Reports: no symptoms HEENT: Reports: no symptoms Cardiovascular: Reports: no symptoms Respiratory: Reports: no symptoms Gastrointestinal/Abdominal: Reports: no symptoms Genitourinary: Reports: no symptoms Neurologic/Psychiatric: Reports: no symptoms Endocrine: Reports: no symptoms Hematologic/Lymphatic: Reports: no symptoms Allergies: Subjective: Patient has been in bed and reports pain at a moderate level. No new complaints at this time. Objective Last 24 Hour Vital Signs Date Time Temp Pulse Resp B/P (MAP) Pulse Ox O2 Delivery O2 Flow Rate FiO2 09/27/19 09:00 Nasal Cannula 2.0 09/27/19 08:39 75 18 99 Room Air 21 77 18 98 09/27/19 08:06 Room Air 09/27/19 08:00 85 09/27/19 08:00 97.3 79 19 145/89 (107) 95 09/27/19 06:20 80 136/68 09/27/19 04:00 Nasal Cannula 4.0 09/27/19 04:00 86 09/27/19 04:00 98.8 80 19 136/68 (90) 95 09/27/19 03:42 68 18 99 Room Air 21 63 18 97 09/27/19 03:12 98.2 09/27/19 00:00 86 09/27/19 00:00 98.2 77 18 132/89 (103) 95 09/27/19 00:00 Nasal Cannula 4.0 09/26/19 23:39 93 18 99 Room Air 21 95 18 95 09/26/19 21:36 86 148/91 09/26/19 20:00 88 09/26/19 20:00 97.5 86 19 148/91 (110) 95 09/26/19 20:00 Nasal Cannula 4.0 09/26/19 19:56 95 Room Air 21 09/26/19 19:56 98 18 99 Room Air 21 96 20 95 09/26/19 16:00 97.3 86 20 133/82 (99) 95 09/26/19 16:00 103 09/26/19 16:00 Nasal Cannula 4.0 09/26/19 15:57 62 12 98 Nasal Cannula 3.0 32 65 14 97 09/26/19 13:20 67 112/72 09/26/19 12:00 97.7 67 20 112/72 (85) 97 09/26/19 12:00 Nasal Cannula 4.0 09/26/19 12:00 76 Intake and Output 09/26/19 09/27/19 19:00 07:00 Intake Total 1260 ml Balance 1260 ml Intake Oral 1260 ml # Voids 2 3 Height (Feet): 5 Height (Inches): 4.00 Weight (Pounds): 124 Objective General Appearance: no apparent distress, alert EENT: PERRL/EOMI Neck: non-tender, normal alignment Cardiovascular: normal rate, regular rhythm Respiratory/Chest: decreased breath sounds Abdomen: non tender, soft Extremities: non-tender Edema: no edema noted Generalized Neurologic: alert, oriented x 3 Skin: warm/dry Ronen Posadas Sep 27, 2019 10:45
[2019-09-27 12:00] VITALS: BP 130/85
--- NOTE | 2019-09-27 12:12 | Infectious Diseases Prog Note ---
Assessment/Plan Assessment/Plan IMPRESSION: Pulmonary emboli. Asthma attack, Emphysema, Hypertension, Scoliosis, Cocaine and opiate abuse. Leukocytosis, may be steroid related RECOMMENDATION: Continue Doxycycline X 1 day f/u CBC Taper methylprednisone. Subjective ROS Limited/Unobtainable: No Constitutional: Reports: no symptoms Respiratory: Reports: shortness of breath, dry cough Gastrointestinal/Abdominal: Reports: no symptoms Genitourinary: Reports: no symptoms Allergies: Coded Allergies: No Known Allergies (Unverified , 09/22/19) Objective Vital Signs Last 24 Hour Vital Signs Date Time Temp Pulse Resp B/P (MAP) Pulse Ox O2 Delivery O2 Flow Rate FiO2 09/27/19 09:00 Nasal Cannula 2.0 09/27/19 08:39 75 18 99 Room Air 21 77 18 98 09/27/19 08:06 Room Air 09/27/19 08:00 85 09/27/19 08:00 97.3 79 19 145/89 (107) 95 09/27/19 06:20 80 136/68 09/27/19 04:00 Nasal Cannula 4.0 09/27/19 04:00 86 09/27/19 04:00 98.8 80 19 136/68 (90) 95 09/27/19 03:42 68 18 99 Room Air 21 63 18 97 09/27/19 03:12 98.2 09/27/19 00:00 86 09/27/19 00:00 98.2 77 18 132/89 (103) 95 09/27/19 00:00 Nasal Cannula 4.0 09/26/19 23:39 93 18 99 Room Air 21 95 18 95 09/26/19 21:36 86 148/91 09/26/19 20:00 88 09/26/19 20:00 97.5 86 19 148/91 (110) 95 09/26/19 20:00 Nasal Cannula 4.0 09/26/19 19:56 95 Room Air 21 09/26/19 19:56 98 18 99 Room Air 21 96 20 95 09/26/19 16:00 97.3 86 20 133/82 (99) 95 09/26/19 16:00 103 09/26/19 16:00 Nasal Cannula 4.0 09/26/19 15:57 62 12 98 Nasal Cannula 3.0 32 65 14 97 09/26/19 13:20 67 112/72 Height (Feet): 5 Height (Inches): 4.00 Weight (Pounds): 124 General Appearance: no acute distress HEENT: mucous membranes moist Respiratory/Chest: rhonchi - bilaterally Cardiovascular: normal rate Abdomen: soft, non tender Extremities: no edema Neurologic/Psychiatric: alert, oriented x 3, responsive Current Medications Medications (Trade) Dose Ordered Sig/Edil Route PRN Reason Start Time Stop Time Status Last Admin Dose Admin Acetaminophen (Tylenol) 650 mg Q6H PRN ORAL Mild Pain/Temp > 100.5 09/25/19 15:07 10/25/19 15:06 Acetaminophen/ Hydrocodone Bitart ([place] 5/325) 1 tab Q6H PRN ORAL For Pain 09/25/19 15:07 10/02/19 15:06 09/27/19 10:12 Albuterol/ Ipratropium (Albuterol/ Ipratropium) 3 ml Q4HRT HHN 09/25/19 19:00 09/27/19 23:14 09/27/19 11:26 Apixaban (Eliquis) 10 mg BID ORAL 09/25/19 18:00 10/25/19 08:59 09/27/19 08:35 Calcium/Vitamin D (OsCal D) 1 tab BID ORAL 09/26/19 18:00 10/26/19 17:59 09/27/19 08:34 Dextrose (Dextrose 50%) 25 ml Q30M PRN IV Hypoglycemia 09/25/19 15:15 10/22/19 23:14 Dextrose (Dextrose 50%) 50 ml Q30M PRN IV Hypoglycemia 09/25/19 15:15 10/22/19 23:14 Diltiazem HCl (Cardizem) 60 mg EVERY 8 HOURS ORAL 09/27/19 06:00 10/27/19 05:59 09/27/19 06:20 Doxycycline Monohydrate (Doxycycline Monohydrate) 100 mg EVERY 12 HOURS ORAL 09/25/19 21:00 09/30/19 08:59 09/27/19 08:34 Guaifenesin (Robitussin) 100 mg Q6H PRN ORAL For Cough 09/25/19 15:07 10/25/19 15:06 Hydromorphone HCl (Dilaudid) 0.5 mg Q3H PRN IVP Pain Scale (7-10) 09/25/19 15:08 10/02/19 15:07 09/25/19 22:28 Methylprednisolone Sodium Succinate (Solu-MEDROL) 10 mg Q24HRS IVP 09/28/19 09:00 10/23/19 05:59 Pantoprazole (Protonix) 40 mg DAILY ORAL 09/26/19 09:00 10/23/19 08:59 09/27/19 08:35 Quetiapine Fumarate (SEROqueL) 150 mg QHS ORAL 09/25/19 21:00 10/24/19 21:56 09/26/19 21:04 Ghassan Garcia MD Sep 27, 2019 12:12
--- NOTE | 2019-09-27 12:30 | NUR ---
HAND-OFF: Report given to EM Mendez. Patient's stable, plan of care endorsed.
--- NOTE | 2019-09-27 12:30 | NUR ---
NURSE NOTES: Received pt from RODNEY RN, Pt is awake and alert, pt is in RA, no SOB or acute respiratory distress noted. pt has intact iv access RAC 20G SL. Pt is on continues heart monitoring, no complain of pain at this moment. all needs attended, bed is locked and is in the lowest position, call light within easy reach. will continue to monitor.
[2019-09-27 16:00] VITALS: BP 128/74
--- NOTE | 2019-09-27 16:45 | Progress Note ---
DATE: 09/27/2019 SUBJECTIVE: The patient is doing well. No behavior issues noted. Calm. No acute distress. Has anxiety. MENTAL STATUS EXAMINATION: Alert, oriented times self, place, and situation. Mood is neutral. Affect is full range, congruent with mood. Thought process is concrete. Thought content, no suicidal or homicidal ideation. ASSESSMENT: Stable. PLAN: 1. We will continue current medication. 2. Provide the patient with reality orientation and supportive therapy. 3. Continue Seroquel. Susan Virk M.D. DR: PIETER JOB#: [id number] CC:
--- NOTE | 2019-09-27 18:57 | NUR ---
NURSE NOTES: Dr JUAREZ visited pt and is aware about ABG results and ordered consult with CM for HH with 2lit O2, noted and carried out. will continue to monitor.
--- NOTE | 2019-09-27 19:31 | NUR ---
HAND-OFF: Report given to SUNIL RN. Pt is awake and stable.
--- NOTE | 2019-09-27 19:44 | NUR ---
NURSE NOTES: Received pt and report from ME Mendez. Observed pt resting in bed with both eyes open and watching television. Pt is A/Ox4. 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 IV site intact, symptomatic and patent. Bed is in the lowest position and locked. Call light and bedside table is within reach. No signs/symptoms of acute distress noted at this time. Will continue plan of care.
[2019-09-27 20:00] VITALS: BP 116/70
--- NOTE | 2019-09-27 21:27 | Pulmonolgy Critical Care Note ---
Critical Care - Asmt/Plan Assessment/Plan: Pulmonary CCM Progress Note HPI Patient is a 64 year old woman with previous history of Asthma, admitted c/o short of breath, noted to have PE Had chest and left arm pain as well involving the upper shoulder upper arm and left forearm, no hemoptysis Noted to have Pulmonary Emboli on CTA - on Eliquis Denies SOB, no new complaints RA ABG PaO2 - 59 - will need home O2 LE dupplex negative Allergies: No Known Allergies Past Medical History: Asthma, Hypertension Social History: Cocaine use All Other Systems: negative except mentioned in HPI Physical Exam Vital Signs Noted General Appearance: well appearing, no apparent distress Head: normocephalic, atraumatic Eyes: bilateral eye PERRL, bilateral eye EOMI ENT: hearing grossly normal, normal pharynx, TMs + canals normal, uvula midline Neck: full range of motion, supple, no meningismus, no bony tend Respiratory: no respiratory distress, no retraction, no accessory muscle use, wheezing - Bilaterally Cardiovascular: normal peripheral pulses, regular rate, rhythm, HS1, HS2 normal ,no edema, no gallop, no JVD, no murmur Gastrointestinal: normal bowel sounds, non tender, soft, no mass, no organomegaly, non-distended, no guarding, no hernia, no pulsatile mass, no rebound Genitourinary: no CVA tenderness Musculoskeletal: other - Subjectively complains of left arm pain however moves in all flexion extension able to supinate and pronate without focal deficit appropriate financial sales assistant Neurologic: motor strength/tone normal, pre sales architect III-XII nml as tested, oriented x3 , sensory intact, responsive Skin: no rash Lymphatic: normal inspection, no adenopathy Impression: Pulmonary embolism Shortness of breath Asthma/COPD exaccerbation Hypertension Cocaine Use Plan Eliquis Breathing treatments O2 - home O2 on DC Solumedrol - wean - can be DC on Medrol dose pack 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 Cardiology following Echocardiogram PPX Monitor labs Labs noted EKG: Rate: normal Rhythm: NSR ST Segments: other - Nonspecific ST and T wave changes Chest X-Ray: no consolidation, no effusion, other - Left lower lobe opacities CTA chest: Study is positive for small bilateral pulmonary emboli Seen earlier Critical Care - Objective Last 24 Hour Vital Signs Date Time Temp Pulse Resp B/P (MAP) Pulse Ox O2 Delivery O2 Flow Rate FiO2 09/27/19 21:22 85 122/76 09/27/19 19:26 Room Air 09/27/19 19:26 79 18 100 Room Air 21 78 20 98 09/27/19 16:40 86 09/27/19 16:23 79 18 100 Room Air 21 76 20 95 09/27/19 16:00 98.2 69 20 128/74 (92) 99 09/27/19 13:29 76 130/85 09/27/19 12:00 76 09/27/19 12:00 97.7 72 19 130/85 (100) 99 09/27/19 11:36 78 18 99 Room Air 21 72 18 94 09/27/19 09:00 Nasal Cannula 2.0 09/27/19 08:39 75 18 99 Room Air 21 77 18 98 09/27/19 08:06 Room Air 09/27/19 08:00 85 09/27/19 08:00 97.3 79 19 145/89 (107) 95 09/27/19 06:20 80 136/68 09/27/19 04:00 Nasal Cannula 4.0 09/27/19 04:00 86 09/27/19 04:00 98.8 80 19 136/68 (90) 95 09/27/19 03:42 68 18 99 Room Air 21 63 18 97 09/27/19 03:12 98.2 09/27/19 00:00 86 09/27/19 00:00 98.2 77 18 132/89 (103) 95 09/27/19 00:00 Nasal Cannula 4.0 09/26/19 23:39 93 18 99 Room Air 21 95 18 95 09/26/19 21:36 86 148/91 Critical Care - Subjective ROS Limited/Unobtainable: No FI02: 21 Sputum Amount: None I&O: Intake and Output 09/26/19 09/27/19 19:00 07:00 Intake Total 1260 ml Balance 1260 ml Intake Oral 1260 ml # Voids 2 3 Harry Corona MD Sep 27, 2019 21:27
--- NOTE | 2019-09-27 21:48 | General Progress Note ---
Assessment/Plan Problem List: (1) Pulmonary embolism ICD Codes: I26.99 - Other pulmonary embolism without acute cor pulmonale SNOMED: [id number] Status: progressing Assessment/Plan: no sob vitals stable pulmonary embolism elevate trop recheck trop anticoagulant per heme/onc Subjective ROS Limited/Unobtainable: Yes Allergies: Coded Allergies: No Known Allergies (Unverified , 09/22/19) Objective Last 24 Hour Vital Signs Date Time Temp Pulse Resp B/P (MAP) Pulse Ox O2 Delivery O2 Flow Rate FiO2 09/27/19 21:22 85 122/76 09/27/19 19:26 Room Air 09/27/19 19:26 79 18 100 Room Air 21 78 20 98 09/27/19 16:40 86 09/27/19 16:23 79 18 100 Room Air 21 76 20 95 09/27/19 16:00 98.2 69 20 128/74 (92) 99 09/27/19 13:29 76 130/85 09/27/19 12:00 76 09/27/19 12:00 97.7 72 19 130/85 (100) 99 09/27/19 11:36 78 18 99 Room Air 21 72 18 94 09/27/19 09:00 Nasal Cannula 2.0 09/27/19 08:39 75 18 99 Room Air 21 77 18 98 09/27/19 08:06 Room Air 09/27/19 08:00 85 09/27/19 08:00 97.3 79 19 145/89 (107) 95 09/27/19 06:20 80 136/68 09/27/19 04:00 Nasal Cannula 4.0 09/27/19 04:00 86 09/27/19 04:00 98.8 80 19 136/68 (90) 95 09/27/19 03:42 68 18 99 Room Air 21 63 18 97 09/27/19 03:12 98.2 09/27/19 00:00 86 09/27/19 00:00 98.2 77 18 132/89 (103) 95 09/27/19 00:00 Nasal Cannula 4.0 09/26/19 23:39 93 18 99 Room Air 21 95 18 95 Intake and Output 09/26/19 09/27/19 19:00 07:00 Intake Total 1260 ml Balance 1260 ml Intake Oral 1260 ml # Voids 2 3 Laboratory Tests 09/27/19 13:34: Arterial Blood pH 7.437, Arterial Blood Partial Pressure CO2 37.9, Arterial Blood Partial Pressure O2 59.2L, Arterial Blood HCO3 25.0, Arterial Blood Oxygen Saturation 90.6L, Arterial Blood Base Excess 0.9, Wali Test Positive Height (Feet): 5 Height (Inches): 4.00 Weight (Pounds): 124 Neck: supple Cardiovascular: normal rate Respiratory/Chest: lungs clear Abdomen: soft Cash Bach MD Sep 27, 2019 21:48
--- NOTE | 2019-09-27 23:48 | Cardiology Progress Note ---
Assessment/Plan Assessment/Plan 1. Dyspnea due to bilateral small pulmonary emboli, continue Eliquis. 2D echocardiography shows no signs of RV strain, LVEF normal at 55%. 2. Slight elevation of troponin I level is likely due to PE, no ECG changes of ischemia is evident. 3. History of asthma. 4. Positive cocaine in the urine. 5. HTN, well controlled, continue diltiazem. Subjective Subjective Sinus rhythm at rate of 79. Walking in the hallway. Objective Last 24 Hour Vital Signs Date Time Temp Pulse Resp B/P (MAP) Pulse Ox O2 Delivery O2 Flow Rate FiO2 09/27/19 23:29 79 19 100 Room Air 21 80 20 98 09/27/19 21:22 85 122/76 09/27/19 19:26 Room Air 09/27/19 19:26 79 18 100 Room Air 21 78 20 98 09/27/19 16:40 86 09/27/19 16:23 79 18 100 Room Air 21 76 20 95 09/27/19 16:00 98.2 69 20 128/74 (92) 99 09/27/19 13:29 76 130/85 09/27/19 12:00 76 09/27/19 12:00 97.7 72 19 130/85 (100) 99 09/27/19 11:36 78 18 99 Room Air 21 72 18 94 09/27/19 09:00 Nasal Cannula 2.0 09/27/19 08:39 75 18 99 Room Air 21 77 18 98 09/27/19 08:06 Room Air 09/27/19 08:00 85 09/27/19 08:00 97.3 79 19 145/89 (107) 95 09/27/19 06:20 80 136/68 09/27/19 04:00 Nasal Cannula 4.0 09/27/19 04:00 86 09/27/19 04:00 98.8 80 19 136/68 (90) 95 09/27/19 03:42 68 18 99 Room Air 21 63 18 97 09/27/19 03:12 98.2 09/27/19 00:00 86 09/27/19 00:00 98.2 77 18 132/89 (103) 95 09/27/19 00:00 Nasal Cannula 4.0 Intake and Output 09/26/19 09/27/19 19:00 07:00 Intake Total 1260 ml Balance 1260 ml Intake Oral 1260 ml # Voids 2 3 2D Echo: LVEF 55%, Mild LVH, RVSP 31 mmHg, Normal RV size w/ no strain, Grade I LV Laboratory Tests Test 09/27/19 13:34 Arterial Blood pH 7.437 (7.350-7.450) Arterial Blood Partial Pressure CO2 37.9 mmHg (35.0-45.0) Arterial Blood Partial Pressure O2 59.2 mmHg (75.0-100.0) L Arterial Blood HCO3 25.0 mmol/L (22.0-26.0) Arterial Blood Oxygen Saturation 90.6 % (95-100) L Arterial Blood Base Excess 0.9 (-2-2) Wali Test Positive Objective HEENT: Somewhat agitated. Atraumatic and normocephalic. Anicteric. Pupils are equal, round, and reactive to light and accommodation. Extraocular muscles intact. NECK: JVP less than 5 cm. No carotid bruit. Carotid upstrokes 2+ bilaterally. CARDIOVASCULAR: Normal S1 and S2. A 2/6 mid systolic murmur at the xiphoid area with RVS3. LUNGS: Diminished breath sounds in both lungs. ABDOMEN: Soft, nontender, and nondistended. No hepatosplenomegaly. Positive bowel sounds. EXTREMITIES: No evidence of edema, clubbing, or cyanosis. Dayron Tate MD Sep 27, 2019 23:48
[2019-09-28] VITALS: BP 119/71
[2019-09-28] MEDS: Albuterol/Ipratropium 3ml neb HHN SCH ×4 (02:54→15:18)
[2019-09-28 04:00] VITALS: BP 108/57
[2019-09-28] MEDS: HYDROcodone/Acetamin 5/325 tab ORAL PRN ×2 (04:51→13:19)
[2019-09-28] MEDS: dilTIAZem HCl 30mg tab ORAL SCH ×2 (06:25→13:19)
[2019-09-28 06:35] LABS: BASOPHILS % (AUTO) 0.9 % (0.0-2.0); EOSINOPHILS % (AUTO) 0.8 % (0.0-3.0); HEMATOCRIT 33.3 % (37.0-47.0); HEMOGLOBIN 11.5 G/DL (12.0-16.0); LYMPHOCYTES % (AUTO) 19.5 % (20.0-45.0); MEAN CORPUSCULAR VOLUME 99 FL (80-99); MONOCYTES % (AUTO) 6.1 % (1.0-10.0); NEUTROPHILS % (AUTO) 72.8 % (45.0-75.0); PLATELET COUNT 195 K/UL (150-450); RED BLOOD COUNT 3.36 M/UL (4.20-5.40); RED CELL DISTRIBUTION WIDTH 12.3 % (11.6-14.8); WHITE BLOOD COUNT 10.5 K/UL (4.8-10.8)
--- NOTE | 2019-09-28 07:10 | NUR ---
NURSE NOTES: Received pt from DECEMBER RN, Pt is awake and alert, pt is in RA, no SOB or acute respiratory distress noted. pt has intact iv access RAC 20G SL. Pt is on continues heart monitoring, no complain of pain at this moment. Pt is eating breakfast by observation. all needs attended, bed is locked and is in the lowest position, call light within easy reach. will continue to monitor.
--- NOTE | 2019-09-28 07:24 | NUR ---
HAND-OFF: Report given to EM Mendez. Plan of care endorsed.
[2019-09-28 08:00] VITALS: BP 125/84
[2019-09-28] MEDS: Calcium Carbonate 500mg w/Vit D 200iu tab ORAL SCH (08:25)
[2019-09-28] MEDS: Doxycycline Monohydrate 100mg ORAL SCH (08:25)
[2019-09-28] MEDS: Eliquis 5mg tablet ORAL SCH (08:26)
--- NOTE | 2019-09-28 08:33 | NUR ---
INSURANCE FAXED ALL CLINICALS AND REVIEWS TO [facility] T: [phone] [id number] F: [phone]
--- NOTE | 2019-09-28 08:34 | NUR ---
NURSE NOTES: 30MG SOLU MEDROL wasted in med room.
[2019-09-28] MEDS ORDERED: Solu-MEDROL 40mg Inj IVP SCH (09:00)
--- NOTE | 2019-09-28 10:09 | NUR ---
NURSE NOTES: Pt is ambulate and when she walks SPO2 low to 82%, will continue to monitor. Addendum: 09/28/19 at 1024 by Vanessa Grossman RN Pt when ambulating with room air, SPO2 dropped below to 82%, placed O2 2lit, SPO2 increases to 98%.
--- NOTE | 2019-09-28 11:01 | Infectious Diseases Prog Note ---
Assessment/Plan Assessment/Plan IMPRESSION: Pulmonary emboli. Asthma attack, Emphysema, Hypertension, Scoliosis, Cocaine and opiate abuse. Leukocytosis, may be steroid related RECOMMENDATION: Discontinue Doxycycline f/u CBC Taper methylprednisone. Subjective ROS Limited/Unobtainable: No Respiratory: Reports: shortness of breath, other - mild Cardiovascular: Reports: no symptoms Gastrointestinal/Abdominal: Reports: no symptoms Genitourinary: Reports: no symptoms Allergies: Coded Allergies: No Known Allergies (Unverified , 09/22/19) Objective Vital Signs Last 24 Hour Vital Signs Date Time Temp Pulse Resp B/P (MAP) Pulse Ox O2 Delivery O2 Flow Rate FiO2 09/28/19 10:24 87 18 100 Room Air 21 88 18 98 09/28/19 08:00 97.5 78 19 125/84 (98) 99 09/28/19 07:55 76 09/28/19 07:28 Room Air 09/28/19 06:25 103 152/92 09/28/19 04:00 97.5 91 18 108/57 (74) 94 09/28/19 04:00 91 09/28/19 02:50 82 19 100 Room Air 21 81 20 97 09/28/19 00:00 88 09/28/19 00:00 98.0 60 19 119/71 (87) 98 09/27/19 23:29 79 19 100 Room Air 21 80 20 98 09/27/19 21:22 85 122/76 09/27/19 20:00 98.1 62 17 116/70 (85) 99 09/27/19 20:00 97 09/27/19 19:26 Room Air 09/27/19 19:26 79 18 100 Room Air 21 78 20 98 09/27/19 16:40 86 09/27/19 16:23 79 18 100 Room Air 21 76 20 95 09/27/19 16:00 98.2 69 20 128/74 (92) 99 09/27/19 13:29 76 130/85 09/27/19 12:00 76 09/27/19 12:00 97.7 72 19 130/85 (100) 99 09/27/19 11:36 78 18 99 Room Air 21 72 18 94 Height (Feet): 5 Height (Inches): 4.00 Weight (Pounds): 124 General Appearance: no acute distress HEENT: mucous membranes moist Respiratory/Chest: lungs clear Cardiovascular: normal rate Abdomen: soft, non tender Extremities: no edema Neurologic/Psychiatric: alert, oriented x 3, responsive Laboratory Tests Test 09/27/19 13:34 09/28/19 05:15 Arterial Blood pH 7.437 (7.350-7.450) Arterial Blood Partial Pressure CO2 37.9 mmHg (35.0-45.0) Arterial Blood Partial Pressure O2 59.2 mmHg (75.0-100.0) L Arterial Blood HCO3 25.0 mmol/L (22.0-26.0) Arterial Blood Oxygen Saturation 90.6 % (95-100) L Arterial Blood Base Excess 0.9 (-2-2) Wali Test Positive White Blood Count 10.5 K/UL (4.8-10.8) Red Blood Count 3.36 M/UL (4.20-5.40) L Hemoglobin 11.5 G/DL (12.0-16.0) L Hematocrit 33.3 % (37.0-47.0) L Mean Corpuscular Volume 99 FL (80-99) Mean Corpuscular Hemoglobin 34.3 PG (27.0-31.0) H Mean Corpuscular Hemoglobin Concent 34.6 G/DL (32.0-36.0) Red Cell Distribution Width 12.3 % (11.6-14.8) Platelet Count 195 K/UL (150-450) Mean Platelet Volume 9.1 FL (6.5-10.1) Neutrophils (%) (Auto) 72.8 % (45.0-75.0) Lymphocytes (%) (Auto) 19.5 % (20.0-45.0) L Monocytes (%) (Auto) 6.1 % (1.0-10.0) Eosinophils (%) (Auto) 0.8 % (0.0-3.0) Basophils (%) (Auto) 0.9 % (0.0-2.0) Current Medications Medications (Trade) Dose Ordered Sig/Edil Route PRN Reason Start Time Stop Time Status Last Admin Dose Admin Acetaminophen (Tylenol) 650 mg Q6H PRN ORAL Mild Pain/Temp > 100.5 09/25/19 15:07 10/25/19 15:06 Acetaminophen/ Hydrocodone Bitart ([place] 5/325) 1 tab Q6H PRN ORAL For Pain 09/25/19 15:07 10/02/19 15:06 09/28/19 04:51 Albuterol/ Ipratropium (Albuterol/ Ipratropium) 3 ml Q4HRT HHN 09/28/19 03:00 10/03/19 02:59 09/28/19 10:24 Apixaban (Eliquis) 10 mg BID ORAL 09/25/19 18:00 10/25/19 08:59 09/28/19 08:26 Calcium/Vitamin D (OsCal D) 1 tab BID ORAL 09/26/19 18:00 10/26/19 17:59 09/28/19 08:25 Dextrose (Dextrose 50%) 25 ml Q30M PRN IV Hypoglycemia 09/25/19 15:15 10/22/19 23:14 Dextrose (Dextrose 50%) 50 ml Q30M PRN IV Hypoglycemia 09/25/19 15:15 10/22/19 23:14 Diltiazem HCl (Cardizem) 60 mg EVERY 8 HOURS ORAL 09/27/19 06:00 10/27/19 05:59 09/28/19 06:25 Doxycycline Monohydrate (Doxycycline Monohydrate) 100 mg EVERY 12 HOURS ORAL 09/25/19 21:00 09/30/19 08:59 09/28/19 08:25 Guaifenesin (Robitussin) 100 mg Q6H PRN ORAL For Cough 09/25/19 15:07 10/25/19 15:06 Hydromorphone HCl (Dilaudid) 0.5 mg Q3H PRN IVP Pain Scale (7-10) 09/25/19 15:08 10/02/19 15:07 09/25/19 22:28 Methylprednisolone Sodium Succinate (Solu-MEDROL) 10 mg Q24HRS IVP 09/28/19 09:00 10/23/19 05:59 09/28/19 08:25 Pantoprazole (Protonix) 40 mg DAILY ORAL 09/26/19 09:00 10/23/19 08:59 09/28/19 08:25 Quetiapine Fumarate (SEROqueL) 150 mg QHS ORAL 09/25/19 21:00 10/24/19 21:56 09/27/19 21:21 Ghassan Garcia MD Sep 28, 2019 11:01
[2019-09-28 12:00] VITALS: BP 124/78
--- NOTE | 2019-09-28 12:02 | NUR ---
DISCHARGE PLANNING ORDER NOTED FOR DISCHARGE HOME WITH OXYGEN AND HOME HEALTH DISCHARGE ORDERS HAVE BEEN FAXED TO: [facility] ~ [place] T: [phone] [id number] F: [phone] [employer]: JUNIOR T: [phone] F: [phone] [facility] [employer] [place] T: [phone] [id number] [facility] WILL ARRANGE HOME HEALTH AND GIVE AUTHORIZATION FOR HOME OXYGEN WAITING FOR PORTABLE OXYGEN TANK TO BE DELIVERED TO BEDSIDE PATIENT CANNOT LEAVE THIS HOSPITAL UNTIL PORTABLE OXYGEN TANK HAS BEEN DELIVERED TO BEDSIDE
[2019-09-28] MEDS ORDERED: ELIQUIS5 MG PO ×2 (12:24→12:25)
--- NOTE | 2019-09-28 13:24 | NUR ---
DISCHARGE PLANNING RECEIVED CALL FROM REBECCA AT [facility] T: [phone] THEY HAVE ACCEPTED TO SERVICE PATIENT UPON DISCHARGE SPOKE WITH JUNIOR AT [facility] T: [phone] .PORTABLE OXYGEN WILL BE DELIVERED TO HOSPITAL BEFORE 5PM TODAY ONCE DELIVERED PATIENT CAN DISCHARGE HOME
--- NOTE | 2019-09-28 14:51 | Pulmonolgy Critical Care Note ---
Critical Care - Asmt/Plan Assessment/Plan: Pulmonary Progress Note HPI Patient is a 64 year old woman with previous history of Asthma, admitted c/o short of breath, noted to have PE Had chest and left arm pain as well involving the upper shoulder upper arm and left forearm, no hemoptysis Noted to have Pulmonary Emboli on CTA - on Eliquis Denies SOB, no new complaints RA ABG PaO2 - 59 - will need home O2 LE dupplex negative Allergies: No Known Allergies Past Medical History: Asthma, Hypertension Social History: Cocaine use All Other Systems: negative except mentioned in HPI Physical Exam Vital Signs Noted General Appearance: well appearing, no apparent distress Head: normocephalic, atraumatic Eyes: bilateral eye PERRL, bilateral eye EOMI ENT: hearing grossly normal, normal pharynx, TMs + canals normal, uvula midline Neck: full range of motion, supple, no meningismus, no bony tend Respiratory: no respiratory distress, no retraction, no accessory muscle use, wheezing - Bilaterally Cardiovascular: normal peripheral pulses, regular rate, rhythm, HS1, HS2 normal ,no edema, no gallop, no JVD, no murmur Gastrointestinal: normal bowel sounds, non tender, soft, no mass, no organomegaly, non-distended, no guarding, no hernia, no pulsatile mass, no rebound Genitourinary: no CVA tenderness Musculoskeletal: other - Subjectively complains of left arm pain however moves in all flexion extension able to supinate and pronate without focal deficit 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 Neurologic: motor strength/tone normal, 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, oriented x3 , sensory intact, responsive Skin: no rash Lymphatic: normal inspection, no adenopathy Impression: Pulmonary embolism Shortness of breath Asthma/COPD exaccerbation Hypertension Cocaine Use Plan Eliquis Breathing treatments O2 - home O2 on DC Solumedrol - wean - can be DC on Medrol 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 Cardiology following Echocardiogram PPX Monitor labs Labs noted EKG: Rate: normal Rhythm: NSR ST Segments: other - Nonspecific ST and T wave changes Chest X-Ray: no consolidation, no effusion, other - Left lower lobe opacities CTA chest: Study is positive for small bilateral pulmonary emboli Seen earlier Critical Care - Objective Last 24 Hour Vital Signs Date Time Temp Pulse Resp B/P (MAP) Pulse Ox O2 Delivery O2 Flow Rate FiO2 09/28/19 13:19 82 124/78 09/28/19 12:00 98.1 82 19 124/78 (93) 94 09/28/19 11:38 79 09/28/19 10:24 87 18 100 Room Air 21 88 18 98 09/28/19 08:00 97.5 78 19 125/84 (98) 99 09/28/19 07:55 76 09/28/19 07:28 Room Air 09/28/19 06:25 103 152/92 09/28/19 04:00 97.5 91 18 108/57 (74) 94 09/28/19 04:00 91 09/28/19 02:50 82 19 100 Room Air 21 81 20 97 09/28/19 00:00 88 09/28/19 00:00 98.0 60 19 119/71 (87) 98 09/27/19 23:29 79 19 100 Room Air 21 80 20 98 09/27/19 21:22 85 122/76 09/27/19 20:00 98.1 62 17 116/70 (85) 99 09/27/19 20:00 97 09/27/19 19:26 Room Air 09/27/19 19:26 79 18 100 Room Air 21 78 20 98 09/27/19 16:40 86 09/27/19 16:23 79 18 100 Room Air 21 76 20 95 09/27/19 16:00 98.2 69 20 128/74 (92) 99 Critical Care - Subjective ROS Limited/Unobtainable: No FI02: 21 Sputum Amount: None I&O: Intake and Output 09/27/19 09/28/19 19:00 07:00 Intake Total 800 ml 500 ml Balance 800 ml 500 ml Intake Oral 800 ml 500 ml # Voids 3 3 Harry Corona MD Sep 28, 2019 14:51
--- NOTE | 2019-09-28 15:17 | NUR ---
NURSE NOTES: pt has discharge order, all D/C assessments and instructions done and pt verbally confirmed to understand all. pt is stable, V/S stable, portable oxygen tank is received by pt and pt knows how to use it. pt got eliquis package from pharmacy and she was instructed to take two tab bid for 4 days and take 1 tab bid thereafter. [phone] pt is aware to see Dr MELGOZA with office number [phone], pt verbally confirmed to understand all instructions. all belongings are with pt and pt signed belongings list. pt's sister KANE is aware about D/C and is coming to pick pt up. will continue to monitor.
[2019-09-28 16:00] VITALS: BP 135/81
--- NOTE | 2019-09-28 16:21 | NUR ---
NURSE NOTES: pt is stable, V/S stable, pt is aware to call the number on the tank for concentrator. all belongings are with pt, all pt's meds are with her, oxygen tank is with pt, iv access D/C, Pt left hospital with accompany of sister, RN accompanied pt out f hospital with wheelchair. Addendum: 09/28/19 at 1639 by Vanessa Grossman RN pt is aware to take eliquis from today after noon, skin is intact.
--- NOTE | 2019-09-28 17:01 | Hematology/Onc Progress Note ---
Assessment/Plan Assessment/Plan Assessment and Recs: # Bilateral Pulmonary embolism - noted on imaging --> consider to continue on heparin gtt--> now changed to eliquis --> hypercoag w/u as needed prn basis --> may be related to recent drug use as well --> recommend 3-6 mo of anticoagulation --> dw cards and pulm --> outpatient f/u # Coagulopathy --> may be due to heparin gtt --> now on eliquis bid # Shortness of breath --> prn breathing treatments # Asthma --> as per pulm # Hypertension --> as per cards # Dvt ppx with jonny Mcwilliams Rn and appreciate consultation. Subjective Allergies: Coded Allergies: No Known Allergies (Unverified , 09/22/19) Subjective 2: no bleeding, no f/c, no night sweats, no major events 2: ok to change heparin gtt to eliquis, will do at this time, cards recs noted 2: no bleeding, on steriods, being tapered 2: less sob, tolerating blood thinner well, no bleeding 2: awake and alert, no acute distress, stable for dc, to f/u as outpatient Objective Objective Last 24 Hour Vital Signs Date Time Temp Pulse Resp B/P (MAP) Pulse Ox O2 Delivery O2 Flow Rate FiO2 09/28/19 16:00 97.7 87 20 135/81 (99) 94 09/28/19 15:18 80 18 100 Room Air 21 78 18 97 09/28/19 13:49 98.1 09/28/19 13:19 82 124/78 09/28/19 12:00 98.1 82 19 124/78 (93) 94 09/28/19 11:38 79 09/28/19 10:24 87 18 100 Room Air 21 88 18 98 09/28/19 08:00 97.5 78 19 125/84 (98) 99 09/28/19 07:55 76 09/28/19 07:28 Room Air 09/28/19 06:25 103 152/92 09/28/19 04:00 97.5 91 18 108/57 (74) 94 09/28/19 04:00 91 09/28/19 02:50 82 19 100 Room Air 21 81 20 97 09/28/19 00:00 88 09/28/19 00:00 98.0 60 19 119/71 (87) 98 09/27/19 23:29 79 19 100 Room Air 21 80 20 98 09/27/19 21:22 85 122/76 09/27/19 20:00 98.1 62 17 116/70 (85) 99 09/27/19 20:00 97 09/27/19 19:26 Room Air 09/27/19 19:26 79 18 100 Room Air 21 78 20 98 09/27/19 16:40 86 09/27/19 16:23 79 18 100 Room Air 21 76 20 95 09/27/19 16:00 98.2 69 20 128/74 (92) 99 09/27/19 13:29 76 130/85 09/27/19 12:00 76 09/27/19 12:00 97.7 72 19 130/85 (100) 99 09/27/19 11:36 78 18 99 Room Air 21 72 18 94 09/27/19 09:00 Nasal Cannula 2.0 09/27/19 08:39 75 18 99 Room Air 21 77 18 98 09/27/19 08:06 Room Air 09/27/19 08:00 85 09/27/19 08:00 97.3 79 19 145/89 (107) 95 09/27/19 06:20 80 136/68 09/27/19 04:00 Nasal Cannula 4.0 09/27/19 04:00 86 09/27/19 04:00 98.8 80 19 136/68 (90) 95 09/27/19 03:42 68 18 99 Room Air 21 63 18 97 09/27/19 00:00 86 09/27/19 00:00 98.2 77 18 132/89 (103) 95 09/27/19 00:00 Nasal Cannula 4.0 09/26/19 23:39 93 18 99 Room Air 21 95 18 95 09/26/19 21:36 86 148/91 09/26/19 20:00 88 09/26/19 20:00 97.5 86 19 148/91 (110) 95 09/26/19 20:00 Nasal Cannula 4.0 09/26/19 19:56 95 Room Air 21 09/26/19 19:56 98 18 99 Room Air 21 96 20 95 Intake and Output 09/27/19 09/28/19 19:00 07:00 Intake Total 800 ml 500 ml Balance 800 ml 500 ml Intake Oral 800 ml 500 ml # Voids 3 3 Labs Test 09/26/19 04:01 09/27/19 13:34 09/28/19 05:15 Activated Partial Thromboplast Time 24 SEC (23-33) Arterial Blood pH 7.437 (7.350-7.450) Arterial Blood Partial Pressure CO2 37.9 mmHg (35.0-45.0) Arterial Blood Partial Pressure O2 59.2 mmHg (75.0-100.0) Arterial Blood HCO3 25.0 mmol/L (22.0-26.0) Arterial Blood Oxygen Saturation 90.6 % (95-100) Arterial Blood Base Excess 0.9 (-2-2) Wali Test Positive White Blood Count 10.5 K/UL (4.8-10.8) Red Blood Count 3.36 M/UL (4.20-5.40) Hemoglobin 11.5 G/DL (12.0-16.0) Hematocrit 33.3 % (37.0-47.0) Mean Corpuscular Volume 99 FL (80-99) Mean Corpuscular Hemoglobin 34.3 PG (27.0-31.0) Mean Corpuscular Hemoglobin Concent 34.6 G/DL (32.0-36.0) Red Cell Distribution Width 12.3 % (11.6-14.8) Platelet Count 195 K/UL (150-450) Mean Platelet Volume 9.1 FL (6.5-10.1) Neutrophils (%) (Auto) 72.8 % (45.0-75.0) Lymphocytes (%) (Auto) 19.5 % (20.0-45.0) Monocytes (%) (Auto) 6.1 % (1.0-10.0) Eosinophils (%) (Auto) 0.8 % (0.0-3.0) Basophils (%) (Auto) 0.9 % (0.0-2.0) Height (Feet): 5 Height (Inches): 4.00 Weight (Pounds): 124 Objective Physical Exam General: well appearing, nad HEENT: full range of motion, supple, no meningismus Resp: no respiratory distress, no retraction, no accessory muscle use CV: normal peripheral pulses, regular rate, rhythm GI: normal bowel sounds, non tender, soft, no mass : no CVA tenderness MSK: subjectively complains of left arm pain Neurologic: motor strength/tone normal, responsive Jose Bates MD Sep 28, 2019 17:01
--- NOTE | 2019-09-28 22:30 | Progress Note ---
DATE: 09/28/2019 SUBJECTIVE: The patient is in bed, lying down. Mood is anxious. MENTAL STATUS EXAMINATION: Alert and oriented times self, place, and situation. Mood is neutral to anxious. Affect is flat. Thought process is concrete. Thought content, no suicidal or homicidal ideation noted. Cognition is impaired. Insight and judgment is impaired. ASSESSMENT: Stable. PLAN: We will continue current medications. Provide the patient with reality orientation and supportive therapy. Susan Virk M.D. DR: PIOTR JOB#: [id number] CC: AFSANEH
--- NOTE | 2019-09-28 22:55 | Cardiology Progress Note ---
Assessment/Plan Assessment/Plan 1. Dyspnea due to bilateral small pulmonary emboli, continue Eliquis. 2D echocardiography shows no signs of RV strain, LVEF normal at 55%. 2. Slight elevation of troponin I level is likely due to PE, no ECG changes of ischemia is evident. 3. History of asthma. 4. Positive cocaine in the urine. 5. HTN, well controlled, continue diltiazem. Subjective Subjective Sinus rhythm at rate of 87. Objective Last 24 Hour Vital Signs Date Time Temp Pulse Resp B/P (MAP) Pulse Ox O2 Delivery O2 Flow Rate FiO2 09/28/19 16:00 97.7 87 20 135/81 (99) 94 09/28/19 15:18 80 18 100 Room Air 21 78 18 97 09/28/19 13:49 98.1 09/28/19 13:19 82 124/78 09/28/19 12:00 98.1 82 19 124/78 (93) 94 09/28/19 11:38 79 09/28/19 10:24 87 18 100 Room Air 21 88 18 98 09/28/19 08:00 97.5 78 19 125/84 (98) 99 09/28/19 07:55 76 09/28/19 07:28 Room Air 09/28/19 06:25 103 152/92 09/28/19 04:00 97.5 91 18 108/57 (74) 94 09/28/19 04:00 91 09/28/19 02:50 82 19 100 Room Air 21 81 20 97 09/28/19 00:00 88 09/28/19 00:00 98.0 60 19 119/71 (87) 98 09/27/19 23:29 79 19 100 Room Air 21 80 20 98 Intake and Output 09/27/19 09/28/19 19:00 07:00 Intake Total 800 ml 500 ml Balance 800 ml 500 ml Intake Oral 800 ml 500 ml # Voids 3 3 2D Echo: LVEF 55%, Mild LVH, RVSP 31 mmHg, Normal RV size w/ no strain, Grade I LV Laboratory Tests Test 09/28/19 05:15 White Blood Count 10.5 K/UL (4.8-10.8) Red Blood Count 3.36 M/UL (4.20-5.40) L Hemoglobin 11.5 G/DL (12.0-16.0) L Hematocrit 33.3 % (37.0-47.0) L Mean Corpuscular Volume 99 FL (80-99) Mean Corpuscular Hemoglobin 34.3 PG (27.0-31.0) H Mean Corpuscular Hemoglobin Concent 34.6 G/DL (32.0-36.0) Red Cell Distribution Width 12.3 % (11.6-14.8) Platelet Count 195 K/UL (150-450) Mean Platelet Volume 9.1 FL (6.5-10.1) Neutrophils (%) (Auto) 72.8 % (45.0-75.0) Lymphocytes (%) (Auto) 19.5 % (20.0-45.0) L Monocytes (%) (Auto) 6.1 % (1.0-10.0) Eosinophils (%) (Auto) 0.8 % (0.0-3.0) Basophils (%) (Auto) 0.9 % (0.0-2.0) Objective HEENT: Somewhat agitated. Atraumatic and normocephalic. Anicteric. Pupils are equal, round, and reactive to light and accommodation. Extraocular muscles intact. NECK: JVP less than 5 cm. No carotid bruit. Carotid upstrokes 2+ bilaterally. CARDIOVASCULAR: Normal S1 and S2. A 2/6 mid systolic murmur at the xiphoid area with RVS3. LUNGS: Diminished breath sounds in both lungs. ABDOMEN: Soft, nontender, and nondistended. No hepatosplenomegaly. Positive bowel sounds. EXTREMITIES: No evidence of edema, clubbing, or cyanosis. Dayron Tate MD Sep 28, 2019 22:55
--- NOTE | 2019-09-30 16:53 | Discharge Summary ---
Discharge Summary Discharge Summary _ DATE OF ADMISSION: 09/22/2019 DATE OF DISCHARGE: 09/28/2019 DISCHARGED BY: Dr. Cash Hodge CONSULTANTS: Dr. Dayron Frost [facility] HOSPITAL COURSE: Patient is a 64-year-old female, with history of hypertension and asthma who presented to ED with complaints of asthma exacerbation. Patient had been short of breath despite using inhaler. She also had increased cough and runny nose. She also complained of left arm pain. She denied any vomiting or diarrhea. She saw her primary physician and was given a shot for the left arm pain, however, the discomfort continued. Upon evaluation at the ED, blood work showed elevated troponin. EKG was in normal sinus rhythm with nonspecific ST and T wave changes. Urine toxicology was positive for benzodiazepines and cocaine. Chest x-ray showed left lower lobe opacities. CTA of the chest showed positive small bilateral pulmonary emboli. She was given heparin bolus and was started on heparin drip. She was then admitted for pulmonary embolism. She was admitted to stepdown unit. She was given O2 support. She was placed on nebulizer treatment. Home medications were resumed. She was given IV Solu- Medrol. She was given doxycycline. Echocardiogram showed normal LVEF at 55%, no signs of RV strain. There was slight elevation in troponin I, likely due to PE, no EKG changes of ischemia was evident. Lower extremity venous duplex was negative. Patient has bipolar disorder by history. She was given Seroquel 150 mg. Heparin was discontinued. Patient was transitioned to Eliquis. Patient will need to be on anticoagulation for the next 3 to 4 months. Steroid was tapered. ABG on room air showed PaO2 of 59. Patient will need home O2. She was eventually discharged home with home health. FINAL DIAGNOSES: Bilateral pulmonary embolism Coagulopathy due to heparin drip Asthma attack Emphysema Hypertension Cocaine use Scoliosis Leukocytosis, steroid related DISPOSITION: DC home with home health DISCHARGE MEDICATIONS: Refer to Discharge Medication List. DISCHARGE INSTRUCTIONS: Follow-up in a week. I have been assigned to complete a discharge summary on this account, I was not involved with the patient's management.--CHAVO Pollard Jacqueline Robles NP Sep 30, 2019 16:53
--- NOTE | 2019-10-02 16:16 | NUR ---
INSURANCE DISCAHRGE SUMMARY HAS BEEN FAXED [facility] T: [phone] [id number] F: [phone]
== END 2019-09-28 16:34 | disposition home health service (06) | DRG 134 ==
LOC: EMR 16:20 → ICU 18:57 → EDBEDREQ 18:59 → EDBEDREQSVC 19:24 → EDBEDREQ 20:30 → 2W 09-23 12:00 → 2E 09-25 15:16
DX: I26.99 Other pulmonary embolism without acute cor pulmonale (principal); J44.1 Chronic obstructive pulmonary disease with (acute) exacerbation; D68.9 Coagulation defect, unspecified; J45.901 Unspecified asthma with (acute) exacerbation; D72.829 Elevated white blood cell count, unspecified; T38.0X5A Adverse effect of glucocorticoids and synthetic analogues, initial encounter; R79.89 Other specified abnormal findings of blood chemistry; F14.10 Cocaine abuse, uncomplicated; F11.10 Opioid abuse, uncomplicated; M41.9 Scoliosis, unspecified; I10 Essential (primary) hypertension; F31.9 Bipolar disorder, unspecified; Z87.891 Personal history of nicotine dependence; Z79.51 Long term (current) use of inhaled steroids; Z90.710 Acquired absence of both cervix and uterus; Z98.890 Other specified postprocedural states
CPT/HCPCS: 36415; 36600; 71045; 71275; 80048; 80053; 80307; 82550; 82803; 83690; 83880; 84484; 85007; 85025; 85610; 85730; 87081; 93005; 93306; 93970; 94640; 96374; 96375; 99291; J2405; J7620